=== PATIENT | male | born 1945 | race Caucasian/White ===

== ENCOUNTER 2017-05-09 19:18 | Inpatient (IN) | payer OTHER, MEDICARE ==
[~2017-05-09] VITALS: Ht 182.9 cm; Wt 52.6 kg
[2017-05-09 18:45] VITALS: BP 116/76; PULSE 67; RESP 18; TEMP 98.6; O2SAT 96
[2017-05-10 06:23] VITALS: BP 149/74; PULSE 81; RESP 18; TEMP 97.7; O2SAT 98
--- NOTE | 2017-05-10 10:06 | PD.PN.STU ---
Subjective Remarks Capacity: AO x4. Coherent but significant delusions Psych Chief Complaint: Delusion of "rotted teeth" causing severe self care deficit. HPI: Mr. Aburto is a 71yo male who was transferred here last night from [place] under Ren Act. History of depression, suicidal ideation, and cardiac disease. According to his he asked her to go buy a gun so he could kill himself, so she called the police. Patient states that after his rotator cuff surgery in 2016 he was "very stupid" and did not brush his teeth. After which he believes his teeth "rotted away from the inside out, and caused a hole in his face." He also believes that his "skin is full of blisters and blood is full of sludge," all of which is going to cause him to because he cannot eat , drink, or receive TPN. He states that he does not want to starve, but wishes his heart would stop so that he no longer has to suffer like this. Repeatedly states that he is "already so there is no use anyway." Denies depression. Denies auditory and visual hallucinations. Denies capacity to walk however says he was walking until 2 days ago. Patient refuses medication food/drink. Hx of BA placement 1 year ago to [facility] for MDD. Patient's is Tamim Aburto [phone]. PMH: HTN, Hypercholesteremia, MDD, opiate misuse, carpal tunnel, chronic shoulder pain, blood clot PSH: Rotator Cuff surgery in 2016 in [place]. Appendectomy unknown date SH: Denies alcohol, tobacco, illicit drug use FH: lives in [place], brother lives in [place], [place], sister . Family history of stroke, denies having relative with psychiatric hx Objective Vitals Vital Signs Date Time Temp Pulse Resp B/P (MAP) Pulse Ox O2 Delivery O2 Flow Rate FiO2 05/10/17 06:23 97.7 81 18 149/74 (99) 98 05/09/17 18:45 98.6 67 18 116/76 (89) 96 I/O 05/09/17 05/09/17 05/09/17 05/10/17 05/10/17 05/10/17 07:00 15:00 23:00 07:00 15:00 23:00 Intake Total 0 ml Balance 0 ml Intake Oral 0 ml # Voids 1 Objective Remarks Done in [place] ER on 05/09: Labs unremarkable. CT Head no acute changes EKG no significant changes A/P Assessment and Plan Patient BA by [place] ED on 05/09 for MDD with psychotic features and suicidal ideation. Pt refuses food, water, and medications due to delusions. Recommend antidepressive therapy and augmentation with antipsychotic Discharge Planning Discharge to [facility] for fluids, TPN and medical support. Samir Johnson M3 May 10, 2017 10:06
[2017-05-10] MEDS ORDERED: diphenhydrAMINE HCL 50 MG CAP PO PRN (11:45)
[2017-05-10] MEDS ORDERED: hydrOXYzine HCL 50 MG TAB PO PRN (11:45)
[2017-05-10] MEDS ORDERED: MAGNESIUM HYDROXIDE SUSP 30 ML CUP PO PRN (11:45)
[2017-05-10] MEDS ORDERED: ALUMINUM/MAGNESIUM/SIMETH 30 ML CUP PO PRN (11:45)
--- NOTE | 2017-05-10 12:13 | HHI.HP ---
Provisional Diagnosis Admission Date May 09, 2017 at 19:18 [place] I. 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 Express and informed consent means consent voluntarily given in writing, by a competent person, after sufficient explanation and disclosure of the subject matter involved to enable the person to make a knowing and willful decision without any element of force, fraud, deceit, duress, or other form of constraint or coercion. This person is 18 years of age or older, is not now known to be incompetent to consent to treatment with a guardian advocate, and does not have a health care surrogate or proxy currently making medical treatment decisions. I have found this person to be one of the following: [] Competent to provide express and informed consent, as defined above, for voluntary admission to this facility and is competent to provide express and informed consent for treatment. He/she has the consistent capacity to make well reasoned, willful, and knowing decisions concerning his or her medical or mental health treatment. The person fully and consistently understands the purpose of the admission for examination/placement and is fully capable of personally exercising all rights assured under [place]xxx] Incompetent to provide express and informed consent to voluntary admission , and this is incompetent to provide express and informed consent to treatment. The person must be transferred to involuntary status and a petition for a guardian advocate filed with the Circuit Court. [] Refusing to provide express and informed consent to voluntary admission but is competent to provide express and informed consent for treatment. The person must be discharged or transferred to involuntary status. Form shall be completed within 24 hours of a person's arrival at the receiving facility and filed in the clinical record of each person: 1. Admitted on a voluntary basis 2. Permitted to provide express and informed consent to his/her own treatment 3. Allowed to transfer from involuntary to voluntary status 4. Prior to permitting a person to consent to his or her own treatment after having been previously found incompetent to consent to treatment. History of Present Illness Capacity: Lacks Capacity Psych Chief Complaint: severe depression, severe weight loss, thinks he had HPI Patient is a 71-year-old white male comes here under a Ren act signed by Dr. Sacha Mtz dated 05/09/17 at 1205 that document reviewed stating depression suicidal ideations states patient asked her to buy a gun so he could shoot himself. Patient initially seen with the Ren act at [facility] once medically cleared transferred to this facility for further care and attention under the Ren act. Patient seen in his room on unit 2500 with nurse Cecilia and medical student Samir. Patient laying quietly in bed flat on his back very still with fair eye contact. His responses are slow brief and quiet there is delay in his responses. Patient is alert, he is oriented to place time and situation. He states that he thinks he is . That he has sludge in his veins. That his teeth are rotten. That he cannot swallow. That he has a whole in his cheek. He does state also that he had surgery on his right shoulder about 2-3 years ago with poor healing with the depression starting after that. He has had marked weight loss marked anhedonia and melancholy a. He acknowledges hospitalization 2 about a year ago reviewed and prescribed various medications none of which he appears to have been compliant with. He lives with his of 41 years. He states he would absolutely take the suicide pill if offered to him. Patient denies any prior psychiatric contact hospitalization his psychotropic medications. Denies any alcohol or drug use related to this. Denies any physical or sexual abuse. Though the may be some mental health history with the paternal side of his family. He states he has one adopted adult son and they have no contact with. I also talked to the patient's whose name is Tammi at [phone] who verifies the above statements. She also has added that after the shoulder surgery he had episodes with severe chronic pain have been on various opiates. Though he did not mention that to us at all. also states he had been tried on Wellbutrin, Remeron, Cymbalta, and Seroquel. He also been on lisinopril and hydrocodone with Tylenol. At this time patient does meet criteria for acute inpatient involuntary psychiatric hospitalization under the Ren act. I will do first opinion and request second opinion. I feel he does not have capacity thus I'll ask for healthcare surrogate and guardian advocate. I states she would be willing to be health care surrogate, she states that his prior 2 hospitalizations a year ago for Ren acts also. She also states that they do have advanced directives the house and wishes to be DO NOT RESUSCITATE. We'll have the hospitalist consult will us. We will have PT and OT consult will us. We will have a swallow study done. For now I will refrain from any psychotropics and 3 given some further information. On first assessment appears as patient might be a candidate for ECT will discuss that with his and the patient with her the next few days Review of Systems Constitutional: COMPLAINS OF: Weight loss, Change in appetite Endocrine: DENIES: Heat/cold intolerance, Polydipsia, Polyuria, Polyphagia Eyes: DENIES: Blurred vision, Diplopia, Eye inflammation, Eye pain, Vision loss , Photosensitivity, Double Vision Ears, nose, mouth, throat: COMPLAINS OF: Toothache, Odynophagia Respiratory: DENIES: Apneas, Cough, Snoring, Wheezing, Hemoptysis, Sputum production, Shortness of breath Cardiovascular: DENIES: Chest pain, Palpitations, Syncope, Dyspnea on Exertion , PND, Lower Extremity Edema, Orthopnea, Claudication Gastrointestinal: COMPLAINS OF: Difficulty Swallowing, DENIES: Abdominal pain, Black stools, Bloody stools, Constipation, Diarrhea, Nausea, Vomiting, Anorexia Genitourinary: DENIES: Sexual dysfunction, Urinary frequency, Urinary incontinence, Urgency, Hematuria, Dysuria, Nocturia, Penile Discharge, Testicular Pain, Testicular Swelling Musculoskeletal: COMPLAINS OF: Joint pain, DENIES: Muscle aches, Stiffness, Joint Swelling, Back pain, Neck pain Integumentary: DENIES: Abnormal pigmentation, Nail changes, Pruritus, Rash Hematologic/lymphatic: DENIES: Bruising, Lymphadenopathy Immunologic/allergic: DENIES: Eczema, Urticaria Neurologic: DENIES: Abnormal gait, Headache, Localized weakness, Paresthesias, Seizures, Speech Problems, Tremor, Poor Balance Psychiatric: COMPLAINS OF: Depression, Hallucinations, Suicidal Ideation Past Psych History Psychological trauma history Patient denies Violence risk - others (6 mos) Low Violence risk - self (6 mos) High Substance Abuse History Drugs/Alcohol past 12 months Denies Past Family Social History Coded Allergies: No Known Allergies (Unverified , 05/09/17) Current Medications Medications (Trade) Dose Ordered Sig/Bertin Route Start Time Stop Time Status Last Admin (Benadryl) 50 mg HS PRN PO 05/10/17 11:45 (Tylenol) 650 mg Q4H PRN PO 05/10/17 11:45 (Milk Of Magnesia Liq) 30 ml DAILY PRN PO 05/10/17 11:45 (Mag-Al Plus Susp Liq) 30 ml Q6H PRN PO 05/10/17 11:45 (Atarax) 50 mg Q6H PRN PO 05/10/17 11:45 Family Psych History Appears to be mental health issues and paternal family Social History Patient lives with his of 41 years Patient's Strengths (min. 2) Patient verbal able axis health care is supportive family Physical Exam Patient medically cleared [facility], if present time patient resting quietly in his bed on 2500 he is in no acute distress he is in no respiratory distress no complaints of abdominal pain patient slowly moving all 4 extremities well lying in bed Vital Signs Vital Signs Date Time Temp Pulse Resp B/P (MAP) Pulse Ox O2 Delivery O2 Flow Rate FiO2 05/10/17 06:23 97.7 81 18 149/74 (99) 98 I/O 05/10/17 05/10/17 05/10/17 07:59 15:59 23:59 Intake Total 240 ml Balance 240 ml Mental Status Examination Appearance: Disheveled Consciousness: Alert Orientation: Person, Place, Date/Time, Situation Motor Activity: Other (patient laying in bed unable to ascertain) Speech: Unremarkable Language: Adequate Fund of Knowledge: Adequate Attention and Concentration: Other (fair) Memory: Unremarkable Mood: Sad (depressed), Other (melancholic and anhedonic) Affect: Other (marked decreased range and intensity) Thought Process & Associations: Intact Thought Content: Bizarre thinking Hallucination Type: Olfactory, Tactile Delusion Type: Paranoid Suicidal Ideation: Yes (patient would take the suicide pill) Suicidal Plan: Yes (patient will take the suicide pill) Suicidal Intention: Yes (patient would take the suicide pill) Homicidal Ideation: No Homicidal Plan: No Homicidal Intention: No Insight: Poor Judgment: Poor Assessment & Plan Problem List: (1) Major depressive disorder, recurrent, severe with psychotic features ICD Codes: F33.3 - Major depressive disorder, recurrent, severe with psychotic symptoms Assessment & Plan Estimated LOS: 7 days at this time patient meets criteria for involuntary psychiatric hospitalization Ren act I'll do first opinion request second opinion. I feel doesn't have capacity all is for healthcare surrogate and guardian advocate. We will have hospitalist consult with us, order PT and OT consult, but his swallow study. Patient's states she would be health care surrogate Discharge Planning At this time is too soon to make assessment related to discharge planning Request HC Surrog/Guard Advoc?: Yes Casa Earl MD May 10, 2017 12:13
[2017-05-10] MEDS ORDERED: QUET150XR PO (12:54)
[2017-05-10] MEDS ORDERED: FENT12DI T-DERMAL (12:54)
[2017-05-10] MEDS ORDERED: BUPR150XL PO (12:54)
[2017-05-10] MEDS ORDERED: MELO15TA20 PO (12:54)
[2017-05-10] MEDS ORDERED: REME15TA PO (12:54)
[2017-05-10] MEDS ORDERED: CELE200C PO (12:54)
[2017-05-10] MEDS ORDERED: TRAZ100T10 PO (12:54)
[2017-05-10] MEDS ORDERED: AMLO5TAB2 PO (12:54)
--- NOTE | 2017-05-10 16:58 | PD.CONS ---
[facility] service Reason for Consult Assist with medical management Primary Care Physician Unknown Diagnoses: History of Present Illness Patient is a 71-year-old male who is admitted here at our psychiatry unit transferred from the [facility] for further psychiatric management. Patient is quiet and needs to be encouraged to answer. His affect is blunt but is pleasant. Patient apparently on report was having suicidal ideations and ask for a con's of liquid shoot himself. Patient was Ren acted. Patient denies any history of hypertension or any pain however on review of records from the [facility] was on amlodipine and some pain meds. Patient just states that "" I did want to eat because I'm not hungry". Patient admits that the patient this has been going on for months. Denies any tissue reactive urgency denies any cough denies any bowel movement changes occasional constipation but denies any melena or hematochezia. Admits to weight loss Patient at present denies any paranoid thoughts or suicidal ideations Review of labs from the [facility] UA was clear. WBC of 4.7 hemoglobin 13.5 hematocrit 37.8 platelet of 171. INR is 0 sodium 140 potassium 4.8 chloride 96 CO2 37 BUN 17 creatinine 0.8 blood sugars 98 AST is [address] of the brain shows no acute abnormality. 12-lead EKG sinus rhythm no acute ST-T wave changes Review of Systems ROS Limitations: Poor Historian Constitutional: DENIES: Diaphoretic episodes, Fatigue, Fever, Weight gain, Weight loss, Chills, Dizziness, Change in appetite, Night Sweats Endocrine: DENIES: Heat/cold intolerance, Polydipsia, Polyuria, Polyphagia Eyes: DENIES: Blurred vision, Diplopia, Eye inflammation, Eye pain, Vision loss , Photosensitivity, Double Vision Ears, nose, mouth, throat: DENIES: Tinnitus, Hearing loss, Vertigo, Nasal discharge, Oral lesions, Throat pain, Hoarseness, Ear Pain, Running Nose, Epistaxis, Sinus Pain, Toothache, Odynophagia Respiratory: DENIES: Apneas, Cough, Snoring, Wheezing, Hemoptysis, Sputum production, Shortness of breath Cardiovascular: DENIES: Chest pain, Palpitations, Syncope, Dyspnea on Exertion , PND, Lower Extremity Edema, Orthopnea, Claudication Gastrointestinal: COMPLAINS OF: Constipation Genitourinary: DENIES: Sexual dysfunction, Urinary frequency, Urinary incontinence, Urgency, Hematuria, Dysuria, Nocturia, Penile Discharge, Testicular Pain, Testicular Swelling Musculoskeletal: DENIES: Joint pain, Muscle aches, Stiffness, Joint Swelling, Back pain, Neck pain Integumentary: DENIES: Abnormal pigmentation, Nail changes, Pruritus, Rash Hematologic/lymphatic: DENIES: Bruising, Lymphadenopathy Immunologic/allergic: DENIES: Eczema, Urticaria Neurologic: DENIES: Abnormal gait, Headache, Localized weakness, Paresthesias, Seizures, Speech Problems, Tremor, Poor Balance Psychiatric: COMPLAINS OF: Depression Past Family Social History Allergies: Coded Allergies: No Known Allergies (Unverified , 05/09/17) Past Medical History History of depression Base on list of medications possible history of chronic pain Positive history of hypertension Past Surgical History Patient denies any previous orthopedic surgery. On review of records, listed appendectomy cataract surgery Reported Medications Amlodipine Celebrex Meloxicam Fentanyl patch Wellbutrin Remeron Trazodone Seroquel When went over all of his pain medications with patient patient states he does not take these medications Active Ordered Medications See EMR Family History Patient did not offer any information regarding family history Social History He denies smoking alcohol or substance abuse Physical Exam Vital Signs Vital Signs Date Time Temp Pulse Resp B/P (MAP) Pulse Ox O2 Delivery O2 Flow Rate FiO2 05/10/17 06:23 97.7 81 18 149/74 (99) 98 05/09/17 18:45 98.6 67 18 116/76 (89) 96 Physical Exam GENERAL: No acute distress blunt affect, emaciated SKIN: No rashes Cool and dry. HEAD: Atraumatic. No temporal or scalp tenderness. EYES: Pupils equal round and reactive. Extraocular motions intact. No scleral icterus. ENT: Nose without bleeding, Throat without erythema,, oral mucosa moist NECK: Trachea midline. No JVD or lymphadenopathy. Supple, nontender, no meningeal signs. CARDIOVASCULAR: Regular rate and rhythm without murmurs, gallops, or rubs. RESPIRATORY: Clear to auscultation. Breath sounds equal bilaterally. No wheezes , rales, or rhonchi. No axillary lymphadenopathy GASTROINTESTINAL: soft, non-tender, nondistended. Scaphoid abdomen MUSCULOSKELETAL: Extremities without clubbing, cyanosis, or edema. No joint tenderness, effusion, or edema noted. No calf tenderness. Negative Homans sign bilaterally. NEUROLOGICAL: Awake and alert. Cranial nerves II through XII intact. Motor and sensory grossly within normal limits. Five out of 5 muscle strength in all muscle groups. Normal speech. Assessment and Plan Assessment and Plan 71-year-old male admitted under psych services because of Major Depression. Management per psychiatry. CT report reviewed no acute intracranial process Cachexia. ? secondary to major depression Will get a prealbumin level in a.m. We'll get the dietitian for nutritional consult and recommendation Hopefully with management of depression . Appetite will improve Elevated transaminases from review of labs from [facility]- AST was 104 ALT 128. We'll repeat complete metabolic panel. The rest of his labs are essentially normal electrolytes BUN/creatinine blood sugar CBC INR UA were good. If persistently elevated consider getting imaging studies of the abdomen Hypertension. On review was on amlodipine 5 mg daily. 12-lead EKG is negative We'll get a chest x-ray PA and lateral view. ? History of chronic pain on review of metastases for on several NSAIDs and fentanyl. Patient at present denies any pain will monitor for now and hold off on this pain medications Encourage ambulation. Thank you for this consult we'll follow patient in-house with you Discussed Condition With Patient and staff nurse Edel Mendes MD May 10, 2017 16:58
[2017-05-10 17:40] VITALS: BP 128/72; PULSE 85; RESP 18; TEMP 98; O2SAT 98
[2017-05-11 05:52] VITALS: BP 142/74; PULSE 63; RESP 16; TEMP 97.5; O2SAT 100
--- NOTE | 2017-05-11 11:27 | PD.PSY.CON ---
Provisional Diagnosis Admission Date May 09, 2017 at 19:18 [place]. 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 Earl Reason for Consult second opinion Primary Care Physician Unknown HPI Patient is a 71-year-old white male comes here under a Ren act signed by Dr. Sacha Mtz dated 05/09/17 at 1205 that document reviewed stating depression suicidal ideations states patient asked her to buy a gun so he could shoot himself. Patient initially seen with the Ren act at [facility] once medically cleared transferred to this facility for further care and attention under the Ren act. Patient seen in his room on unit 2500 with nurse Cecilia and medical student Samir. Patient laying quietly in bed flat on his back very still with fair eye contact. His responses are slow brief and quiet there is delay in his responses. Patient is alert, he is oriented to place time and situation. He states that he thinks he is . That he has sludge in his veins. That his teeth are rotten. That he cannot swallow. That he has a whole in his cheek. He does state also that he had surgery on his right shoulder about 2-3 years ago with poor healing with the depression starting after that. He has had marked weight loss marked anhedonia and melancholy a. He acknowledges hospitalization 2 about a year ago reviewed and prescribed various medications none of which he appears to have been compliant with. He lives with his of 41 years. He states he would absolutely take the suicide pill if offered to him. Patient denies any prior psychiatric contact hospitalization his psychotropic medications. Denies any alcohol or drug use related to this. Denies any physical or sexual abuse. Though the may be some mental health history with the paternal side of his family. He states he has one adopted adult son and they have no contact with. I also talked to the patient's whose name is Tammi at [phone] who verifies the above statements. She also has added that after the shoulder surgery he had episodes with severe chronic pain have been on various opiates. Though he did not mention that to us at all. also states he had been tried on Wellbutrin, Remeron, Cymbalta, and Seroquel. He also been on lisinopril and hydrocodone with Tylenol. At this time patient does meet criteria for acute inpatient involuntary psychiatric hospitalization under the Ren act. I will do first opinion and request second opinion. I feel he does not have capacity thus I'll ask for healthcare surrogate and guardian advocate. I states she would be willing to be health care surrogate, she states that his prior 2 hospitalizations a year ago for Ren acts also. She also states that they do have advanced directives the house and wishes to be DO NOT RESUSCITATE. We'll have the hospitalist consult will us. We will have PT and OT consult will us. We will have a swallow study done. For now I will refrain from any psychotropics and 3 given some further information. On first assessment appears as patient might be a candidate for ECT will discuss that with his and the patient with her the next few days The patient is a 71 years old man, brought to the hospital under Ren act due to symptoms of depression and suicidal ideation. Patient was consulted to me for second opinion. On psychiatric evaluation today patient is non-cooperative, very oppositional and selectively mute. In spite of persistent redirection, the patient remains silent and don't answer any of my questions. Review of Systems Except as stated in HPI: all other systems reviewed are Neg Past Family Social History Coded Allergies: No Known Allergies (Unverified , 05/09/17) Reported Medications Trazodone (Trazodone) 100 Mg Tablet, 100 MG PO HS for Control Depression, #30 TAB 0 Refills 05/10/17 Quetiapine XR (Seroquel XR) 150 Mg Tab, 150 MG PO HS, #30 TAB 0 Refills 05/10/17 Mirtazapine (Remeron) 15 Mg Tab, 15 MG PO HS for Depression Control, #30 TAB 0 Refills 05/10/17 Meloxicam (Meloxicam) 15 Mg Tab, 15 MG PO DAILY for Arthritis Pain, #30 TAB 0 Refills 05/10/17 Fentanyl Patch 72 HR (Fentanyl Patch 72 HR) 12 Mcg/Hr Patch, 1 PATCH T-DERMAL Q72H for Pain Management, #10 PATCH 0 Refills Remove old patch when new one placed. 05/10/17 Celecoxib (Celebrex) 200 Mg Cap, 200 MG PO BID for Pain Management, CAP 0 Refills 05/10/17 Bupropion HCl ER 24 HR (Wellbutrin Xl 24 HR) 150 Mg Tab, 150 MG PO DAILY for Control Depression, TAB 0 Refills 05/10/17 Amlodipine (Amlodipine) 5 Mg Tab, 5 MG PO DAILY for Blood Pressure Management, # 30 TAB 0 Refills 05/10/17 Current Medications Medications (Trade) Dose Ordered Sig/Bertin Route Start Time Stop Time Status Last Admin (Benadryl) 50 mg HS PRN PO 05/10/17 11:45 (Tylenol) 650 mg Q4H PRN PO 05/10/17 11:45 (Milk Of Magnesia Liq) 30 ml DAILY PRN PO 05/10/17 11:45 (Mag-Al Plus Susp Liq) 30 ml Q6H PRN PO 05/10/17 11:45 (Atarax) 50 mg Q6H PRN PO 05/10/17 11:45 Patient's Strengths (min. 2) Patient verbal able axis health care is supportive family Physical Exam Vital Signs Vital Signs Date Time Temp Pulse Resp B/P (MAP) Pulse Ox O2 Delivery O2 Flow Rate FiO2 05/11/17 05:52 97.5 63 16 142/74 (96) 100 I/O 05/11/17 05/11/17 05/12/17 08:00 16:00 00:00 Intake Total 0 ml 0 ml Balance 0 ml 0 ml Mental Status Examination Appearance: Disheveled Consciousness: Alert Orientation: Person, Place, Date/Time, Situation Motor Activity: Other (patient laying in bed unable to ascertain) Speech: Unremarkable Language: Adequate Fund of Knowledge: Adequate Attention and Concentration: Other (fair) Memory: Unremarkable Mood: Sad (depressed), Other (melancholic and anhedonic) Affect: Other (marked decreased range and intensity) Thought Process & Associations: Intact Thought Content: Bizarre thinking Hallucination Type: Olfactory, Tactile Delusion Type: Paranoid Suicidal Ideation: Yes (patient would take the suicide pill) Suicidal Plan: Yes (patient will take the suicide pill) Suicidal Intention: Yes (patient would take the suicide pill) Homicidal Ideation: No Homicidal Plan: No Homicidal Intention: No Insight: Poor Judgment: Poor Assessment & Plan Problem List: (1) Major depressive disorder, recurrent, severe with psychotic features ICD Codes: F33.3 - Major depressive disorder, recurrent, severe with psychotic symptoms Assessment & Plan: I have seen and examined this patient, review documentation. I agree and concur with Dr. Earl's assessment and plan. Consul appreciated. Assessment & Plan Estimated LOS: days Request HC Surrog/Guard Advoc?: Yes Eduardo Dos Santos MD May 11, 2017 11:27
--- NOTE | 2017-05-11 11:47 | HHI.PYPN ---
Subjective Chief Complaint: severe depression, severe weight loss, thinks he had Remarks Patient seen in the day room with nurse Nneka, chart review, patient sitting in Alie chair slowly eating his lunch. Is also drinking fluids. Albeit somewhat reluctantly. Patient continues to feel that he is continues to state that there is a hole in his left cheek. That his blood has sludge. The depression continues quite evident with marked psychomotor retardation. However it does appear that he is willing to take medication. We will offer him Remeron 15 mg at at bedtime and Abilify 5 mg in the morning. Hospitalists assessment noted reviewed appreciated and agreed with Review of Systems Except as stated in HPI: all other systems reviewed are Neg Mental Status Examination Appearance: Disheveled Consciousness: Alert Orientation: Person, Place, Date/Time, Situation Motor Activity: Other (patient laying in bed unable to ascertain) Speech: Unremarkable Language: Adequate Fund of Knowledge: Adequate Attention and Concentration: Other (fair) Memory: Unremarkable Mood: Sad (depressed), Other (melancholic and anhedonic) Affect: Other (marked decreased range and intensity) Thought Process & Associations: Intact Thought Content: Bizarre thinking Hallucination Type: Olfactory, Tactile Delusion Type: Paranoid Suicidal Ideation: Yes (patient would take the suicide pill) Suicidal Plan: Yes (patient will take the suicide pill) Suicidal Intention: Yes (patient would take the suicide pill) Homicidal Ideation: No Homicidal Plan: No Homicidal Intention: No Insight: Poor Judgment: Poor Results Vitals/IOs Vital Signs Date Time Temp Pulse Resp B/P (MAP) Pulse Ox O2 Delivery O2 Flow Rate FiO2 05/11/17 05:52 97.5 63 16 142/74 (96) 100 Intake and Output 05/11/17 05/11/17 05/12/17 08:00 16:00 00:00 Intake Total 0 ml 0 ml Balance 0 ml 0 ml Assessment & Plan Problem List: (1) Major depressive disorder, recurrent, severe with psychotic features ICD Codes: F33.3 - Major depressive disorder, recurrent, severe with psychotic symptoms Assessment & Plan Estimated LOS: days patient continues to really depressed, colic, with delusions. Though that this time he is having some oral intake both soft solid and liquid She medication adjustment above Justification for Cont. Inpt. With this time patient will decompensated placed in a lower level of care Discharge Planning This continues to need to be determined Request HC Surrog/Guard Advoc?: Yes Casa Earl MD May 11, 2017 11:47
--- NOTE | 2017-05-11 13:14 | RADRPT ---
EXAM DATE/TIME: 05/11/2017 12:51 [place] COMPARISON: No previous studies available for comparison. INDICATIONS : Hypertension. MEDICAL HISTORY : None. SURGICAL HISTORY : None. ENCOUNTER: Subsequent ACUITY: 1 day PAIN SCORE: 0/10 LOCATION: Bilateral chest FINDINGS: PA and lateral views of the chest demonstrate the lungs to be symmetrically aerated without evidence of mass, infiltrate or effusion. The cardiomediastinal contours are unremarkable. Degenerative nayak ges thoracic spine. CONCLUSION: No acute disease. Vishal Cook MD FACR on May 11, 2017 at 13:11 Board Certified Radiologist. This report was verified electronically.
--- NOTE | 2017-05-11 14:57 | HHI.PR ---
Subjective Remarks Follow-up visit for correction, depression, elevated LFTs, HTN. Patient seen and examined today lying in bed. Nonverbal. Follows commands but does not respond to any questions. As per nursing no acute issues overnight. Objective Vitals Vital Signs Date Time Temp Pulse Resp B/P (MAP) Pulse Ox O2 Delivery O2 Flow Rate FiO2 05/11/17 05:52 97.5 63 16 142/74 (96) 100 05/10/17 17:40 98.0 85 18 128/72 (90) 98 I/O 05/10/17 05/10/17 05/10/17 05/11/17 05/11/17 05/11/17 07:00 15:00 23:00 07:00 15:00 23:00 Intake Total 0 ml 100 ml 480 ml 0 ml 480 ml Balance 0 ml 100 ml 480 ml 0 ml 480 ml Intake Oral 0 ml 100 ml 480 ml 0 ml 480 ml # Voids 1 2 0 1 # Bowel Movements 0 Imaging Last Impressions Chest X-Ray 05/11/17 0600 Signed Impressions: Service Date/Time: Thursday, May 11, 2017 12:51 - CONCLUSION: No acute disease. Vishal Cook MD FACR Objective Remarks GENERAL: This is a thin-appearing, well-developed patient, in no apparent distress. SKIN: Warm and dry. HEENT: Normocephalic. Pupils equal round and reactive. Nose without bleeding. Airway patent. NECK: Trachea midline. No JVD. Supple. CARDIOVASCULAR: Regular rate and rhythm without murmurs, gallops, or rubs. RESPIRATORY: Clear to auscultation. Breath sounds equal bilaterally. No wheezes , rales, or rhonchi. GASTROINTESTINAL: Abdomen soft, non-tender, nondistended. Bowel Sounds normoactive x4. MUSCULOSKELETAL: Extremities without clubbing, cyanosis, or edema. NEUROLOGICAL: Awake and alert. Moves all extremities. Nonverbal A/P Problem List: (1) Major depressive disorder, recurrent, severe with psychotic features ICD Code: F33.3 - Major depressive disorder, recurrent, severe with psychotic symptoms Assessment and Plan Patient is a 71-year-old male who came into the hospital transferred from [facility] for psychiatric management. Major Depression - Management per psychiatry. - CT report reviewed no acute intracranial process Cachexia. ? secondary to major depression - Pending prealbumin level in a.m. - Dietitian for nutritional consult and recommendation - Hopefully with management of depression . Appetite will improve - Add ensure with meals Elevated transaminases from review of labs from [place] - AST 104 ALT 128. - Repeat complete metabolic panel. Pending. - If persistently elevated consider getting imaging studies of the abdomen/ liver, hepatitis panel. Hypertension. - Previously On amlodipine 5 mg daily. Will trend BP for now and hold of restarting meds pending labs - 12-lead EKG is negative - CXR PA/LAT no acute disease ? History of chronic pain on review of metastases for on several NSAIDs and fentanyl. - No complaints of pain. Appears comfortable on exam Encourage ambulation. Kyler Trujillo May 11, 2017 14:57
[2017-05-11 18:27] VITALS: BP 122/68; PULSE 77; RESP 18; TEMP 98.4; O2SAT 99
[2017-05-11] MEDS: MIRTAZAPINE 15 MG TAB PO SCH (20:38)
[2017-05-12 05:38] VITALS: BP 112/62; PULSE 55; RESP 18; TEMP 97.6; O2SAT 100
[2017-05-12] MEDS: ARIPiprazole 5 MG TAB PO SCH (08:32)
--- NOTE | 2017-05-12 14:47 | HHI.PYPN ---
Subjective Chief Complaint: severe depression, severe weight loss, thinks he had Remarks Patient seen in his room with medical student Samir, chart review, patient discussed with nurse. Patient showing some increased oral intake both solids and liquids he states it is not helping him that the food somehow is going into his arms. . Still feels his teeth are not his and soft, he still feels that the whole is developing in his cheek. Is somewhat more irritable today and anxious related to this. Though we did encourage him to continue cooperation with is eating. He has been compliant with his medications for now will continue medication no change since he said only had one dose of each med Review of Systems Except as stated in HPI: all other systems reviewed are Neg Mental Status Examination Appearance: Disheveled Consciousness: Alert Orientation: Person, Place, Date/Time, Situation Motor Activity: Other (patient laying in bed unable to ascertain) Speech: Unremarkable Language: Adequate Fund of Knowledge: Adequate Attention and Concentration: Other (fair) Memory: Unremarkable Mood: Sad (depressed), Other (melancholic and anhedonic) Affect: Other (marked decreased range and intensity) Thought Process & Associations: Intact Thought Content: Bizarre thinking Hallucination Type: Olfactory, Tactile Delusion Type: Paranoid Suicidal Ideation: Yes (patient would take the suicide pill) Suicidal Plan: Yes (patient will take the suicide pill) Suicidal Intention: Yes (patient would take the suicide pill) Homicidal Ideation: No Homicidal Plan: No Homicidal Intention: No Insight: Poor Judgment: Poor Results Vitals/IOs Vital Signs Date Time Temp Pulse Resp B/P (MAP) Pulse Ox O2 Delivery O2 Flow Rate FiO2 05/12/17 05:38 97.6 55 18 112/62 (79) 100 Assessment & Plan Problem List: (1) Major depressive disorder, recurrent, severe with psychotic features ICD Codes: F33.3 - Major depressive disorder, recurrent, severe with psychotic symptoms Assessment & Plan Estimated LOS: days patient continues depressed markedly delusional. For now continue treatment. Encourage oral intake Justification for Cont. Inpt. At this time patient will decompensate of placed in the lower level of care Discharge Planning At this time placement is undeterminable Request HC Surrog/Guard Advoc?: Yes Casa Earl MD May 12, 2017 14:47
[2017-05-12 17:47] VITALS: BP 107/60; PULSE 83; RESP 18; TEMP 98.1; O2SAT 100
[2017-05-12] MEDS: MIRTAZAPINE 15 MG TAB PO SCH (21:04)
[2017-05-13 06:18] VITALS: BP 120/70; PULSE 60; RESP 17; TEMP 97.6; O2SAT 96
[2017-05-13] MEDS: ARIPiprazole 5 MG TAB PO SCH (08:28)
[2017-05-13 09:07] LABS: BILIRUBIN, URINE NEG (NEG); BLOOD, URINE NEG (NEG); GLUCOSE,URINE NEG (NEG); KETONE, URINE NEG (NEG); NITRITE,URINE NEG (NEG); URINE COLOR YELLOW (YELLW/STRAW); URINE LEUKOCYTE ESTERASE NEG (NEG)
[2017-05-13 10:03] LABS: AUTOMATED NEUTROPHIL # 3.6 TH/MM3 (1.8-7.7); BASOPHIL % 0.4 % (0.0-2.0); EOSINOPHIL # 0.1 TH/MM3 (0-0.4); EOSINOPHIL % 1.8 % (0.0-4.0); HEMATOCRIT 37.1 % (39.0-51.0); HEMOGLOBIN 13.1 GM/DL (13.0-17.0); LYMPH % 32.6 % (9.0-44.0); MEAN CELL VOLUME 96.6 FL (80.0-100.0); MEAN CORPUSCULAR HEMOGLOBIN 34.2 PG (27.0-34.0); MEAN CORPUSCULAR HGB CONC 35.4 % (32.0-36.0); MEAN PLATELET VOLUME 8.6 FL (7.0-11.0); MONO % 6.6 % (0.0-8.0); MONOCYTE # 0.4 TH/MM3 (0-0.9); NEUT % 58.6 % (16.0-70.0); PLATELET COUNT 174 TH/MM3 (150-450); RED BLOOD COUNT 3.84 MIL/MM3 (4.50-5.90); RED CELL DISTRIBUTION WIDTH 12.8 % (11.6-17.2); WHITE BLOOD COUNT 6.2 TH/MM3 (4.0-11.0)
[2017-05-13 10:47] LABS: ALBUMIN 3.9 GM/DL (3.4-5.0); AST (GOT) 51 U/L (15-37); BICARBONATE 33.2 MEQ/L (21.0-32.0); BLOOD UREA NITROGEN 30 MG/DL (7-18); CALCIUM 9.2 MG/DL (8.5-10.1); CHLORIDE 103 MEQ/L (98-107); CREATININE 0.92 MG/DL (0.60-1.30); GLOMERULAR FILTRATION RATE 81 ML/MIN (>89); GLUCOSE,RANDOM 87 MG/DL (74-106); SODIUM (NA) 142 MEQ/L (136-145)
[2017-05-13 10:48] LABS: CHOLESTEROL 161 MG/DL (120-200)
[2017-05-13 10:57] LABS: ALKALINE PHOSPHATASE 79 U/L (45-117); ALT (GPT) 86 U/L (12-78); CHOLESTEROL/ HDL RATIO 2.72 RATIO; FREE T4 0.87 NG/DL (0.76-1.46); HDL CHOLESTEROL 59.1 MG/DL (40.0-60.0); LDL CHOLESTEROL 75 MG/DL (0-99); TOTAL BILIRUBIN ADULT 0.3 MG/DL (0.2-1.0); TOTAL PROTEIN 7.1 GM/DL (6.4-8.2); TRIGLYCERIDES 134 MG/DL (42-150)
--- NOTE | 2017-05-13 15:34 | HHI.PYPN ---
Subjective Chief Complaint: severe depression, severe weight loss, thinks he had Remarks Patient seen in his room with nurse Atiya, chart review, patient discussed with nurse. Patient continues to lay in bed with significant psychomotor retardation. There is somewhat more verbal today he continues to verifies delusions about this condition of his mouth teeth and cheeks and his circulation. He also acknowledges his depression. Of interest patient stated his father had a history of depression and did undergo ECT treatment. I did mention ECT to this patient's we need to consider this if there is no response to oral medication. Will increase his a.m. Abilify to 10 mg Review of Systems Except as stated in HPI: all other systems reviewed are Neg Mental Status Examination Appearance: Disheveled Consciousness: Alert Orientation: Person, Place, Date/Time, Situation Motor Activity: Other (patient laying in bed unable to ascertain) Speech: Unremarkable Language: Adequate Fund of Knowledge: Adequate Attention and Concentration: Other (fair) Memory: Unremarkable Mood: Sad (depressed), Other (melancholic and anhedonic) Affect: Other (marked decreased range and intensity) Thought Process & Associations: Intact Thought Content: Bizarre thinking Hallucination Type: Olfactory, Tactile Delusion Type: Paranoid Suicidal Ideation: Yes (patient would take the suicide pill) Suicidal Plan: Yes (patient will take the suicide pill) Suicidal Intention: Yes (patient would take the suicide pill) Homicidal Ideation: No Homicidal Plan: No Homicidal Intention: No Insight: Poor Judgment: Poor Results Labs Test 05/13/17 08:30 05/13/17 09:32 Urine Color YELLOW Urine Turbidity CLEAR Urine pH 7.0 Urine Specific [place] 1.018 Urine Protein NEG mg/dL Urine Glucose (UA) NEG mg/dL Urine Ketones NEG mg/dL Urine Occult Blood NEG Urine Nitrite NEG Urine Bilirubin NEG Urine Urobilinogen LESS THAN 2.0 MG/DL Urine Leukocyte Esterase NEG Urine RBC 4 /hpf Urine WBC 3 /hpf Microscopic Urinalysis Comment CULT NOT INDICATED White Blood Count 6.2 TH/MM3 Red Blood Count 3.84 MIL/MM3 Hemoglobin 13.1 GM/DL Hematocrit 37.1 % Mean Corpuscular Volume 96.6 FL Mean Corpuscular Hemoglobin 34.2 PG Mean Corpuscular Hemoglobin Concent 35.4 % Red Cell Distribution Width 12.8 % Platelet Count 174 TH/MM3 Mean Platelet Volume 8.6 FL Neutrophils (%) (Auto) 58.6 % Lymphocytes (%) (Auto) 32.6 % Monocytes (%) (Auto) 6.6 % Eosinophils (%) (Auto) 1.8 % Basophils (%) (Auto) 0.4 % Neutrophils # (Auto) 3.6 TH/MM3 Lymphocytes # (Auto) 2.0 TH/MM3 Monocytes # (Auto) 0.4 TH/MM3 Eosinophils # (Auto) 0.1 TH/MM3 Basophils # (Auto) 0.0 TH/MM3 CBC Comment DIFF FINAL Differential Comment Blood Urea Nitrogen 30 MG/DL Creatinine 0.92 MG/DL Random Glucose 87 MG/DL Total Protein 7.1 GM/DL Albumin 3.9 GM/DL Calcium Level 9.2 MG/DL Alkaline Phosphatase 79 U/L Aspartate Amino Transf (AST/SGOT) 51 U/L Alanine Aminotransferase (ALT/SGPT) 86 U/L Total Bilirubin 0.3 MG/DL Sodium Level 142 MEQ/L Potassium Level 4.4 MEQ/L Chloride Level 103 MEQ/L Carbon Dioxide Level 33.2 MEQ/L Anion Gap 6 MEQ/L Estimat Glomerular Filtration Rate 81 ML/MIN Prealbumin 22 MG/DL Triglycerides Level 134 MG/DL Cholesterol Level 161 MG/DL LDL Cholesterol 75 MG/DL HDL Cholesterol 59.1 MG/DL Cholesterol/HDL Ratio 2.72 RATIO Free Thyroxine 0.87 NG/DL Thyroid Stimulating Hormone 3rd Gen 2.150 uIU/ML Vitals/IOs Vital Signs Date Time Temp Pulse Resp B/P (MAP) Pulse Ox O2 Delivery O2 Flow Rate FiO2 05/13/17 06:18 97.6 60 17 120/70 (87) 96 Intake and Output 05/13/17 05/13/17 05/14/17 08:00 16:00 00:00 Intake Total 0 ml Balance 0 ml Assessment & Plan Problem List: (1) Major depressive disorder, recurrent, severe with psychotic features ICD Codes: F33.3 - Major depressive disorder, recurrent, severe with psychotic symptoms Assessment & Plan Estimated LOS: days patient continues depressed and psychotic with multiple delusions. She medication adjustment above Justification for Cont. Inpt. At this time patient will decompensate a placed a lower level of care Discharge Planning Place is still remains to be determined Request HC Surrog/Guard Advoc?: Yes Casa Earl MD May 13, 2017 15:34
[2017-05-13 16:23] VITALS: BP 152/84; PULSE 90; RESP 18; TEMP 97.2; O2SAT 98
[2017-05-13 16:51] LABS: HEMOGLOBIN A1C 4.8 % (4.3-6.0)
[2017-05-13] MEDS: MIRTAZAPINE 15 MG TAB PO SCH (21:26)
[2017-05-14 06:00] VITALS: BP 129/59; PULSE 58; RESP 16; TEMP 98.2; O2SAT 98
--- NOTE | 2017-05-14 09:17 | HHI.PR ---
Subjective Remarks Follow-up for blood pressure No overnight events, no complaints other than his usual complaints that he is dying with patient appears calm. No chest pain. Complains he is short of breath but appears very calm, saturation is 99% on room air Objective Vitals Vital Signs Date Time Temp Pulse Resp B/P (MAP) Pulse Ox O2 Delivery O2 Flow Rate FiO2 05/14/17 06:00 98.2 58 16 129/59 (82) 98 05/13/17 16:23 97.2 90 18 152/84 (106) 98 I/O 05/13/17 05/13/17 05/13/17 05/14/17 05/14/17 05/14/17 07:00 15:00 23:00 07:00 15:00 23:00 Intake Total 480 ml 720 ml 480 ml Balance 480 ml 720 ml 480 ml Intake Oral 480 ml 720 ml 480 ml # Voids 3 1 Result Diagram: 05/13/17 0932 05/13/17 0932 Objective Remarks GENERAL: This is a thin-appearing, not in distress, calm. HEENT: Normocephalic. Pupils equal round and reactive. Nose without bleeding. Airway patent. NECK: Trachea midline. No JVD. Supple. CARDIOVASCULAR: Regular rate and rhythm without murmurs, gallops, or rubs. RESPIRATORY: Clear to auscultation. Breath sounds equal bilaterally. No wheezes , rales, or rhonchi. GASTROINTESTINAL: Abdomen soft, non-tender, nondistended. Bowel Sounds normoactive x4. MUSCULOSKELETAL: Extremities without clubbing, cyanosis, or edema. NEUROLOGICAL: Awake and alert. Moves all extremities. Answers questions, follows some commands. Flat affect. A/P Problem List: (1) Major depressive disorder, recurrent, severe with psychotic features ICD Code: F33.3 - Major depressive disorder, recurrent, severe with psychotic symptoms Assessment and Plan Patient is a 71-year-old male who came into the hospital transferred from [facility] for psychiatric management. Major Depression - Management per psychiatry. - CT report reviewed no acute intracranial process Cachexia. ? secondary to major depression - Pending prealbumin 22. - Dietitian for nutritional consult and recommendation - Hopefully with management of depression . Appetite improving per RN. Continue Ensure. Patient refusal to eat likely secondary to psychiatric issues. Elevated transaminases from review of labs from [place] - AST 104 ALT 128, now trending down, no need to follow closely, recheck in a month. No further workup needed. Hypertension. - Previously On amlodipine 5 mg daily. This is on hold, presently normotensive. - 12-lead EKG is negative - CXR PA/LAT no acute disease ? History of chronic pain on review of metastases for on several NSAIDs and fentanyl. - No complaints of pain. Appears comfortable on exam Encourage ambulation. We will sign off, please call with questions. Caden Rojas MD May 14, 2017 09:17
[2017-05-14] MEDS: ARIPiprazole 5 MG TAB PO SCH (09:24)
--- NOTE | 2017-05-14 16:22 | HHI.PYPN ---
Subjective Chief Complaint: severe depression, severe weight loss, thinks he had Remarks Patient was seen and case discussed with nursing. Patient patient has had a small improvement today. He ate lunch and during our interview requested ensure. He does remain depressed and flat and hopeless. He expresses suicidal ideation dishevelment which shoot him with a gun. He denies any plan or intent of hurting himself in the unit. "I cannot think of using anything here to hurt myself, I would not do it." Remains compliant with his medications and is tolerating it well. Mental Status Examination Appearance: Disheveled Consciousness: Alert Orientation: Person, Place, Date/Time, Situation Motor Activity: Other (patient laying in bed unable to ascertain) Speech: Unremarkable Language: Adequate Fund of Knowledge: Adequate Attention and Concentration: Other (fair) Memory: Unremarkable Mood: Sad (depressed), Other (melancholic and anhedonic) Affect: Other (marked decreased range and intensity) Thought Process & Associations: Intact Thought Content: Bizarre thinking Hallucination Type: Olfactory, Tactile Delusion Type: Paranoid Suicidal Ideation: Yes (patient would take the suicide pill) Suicidal Plan: No Suicidal Intention: Yes (patient would take the suicide pill outside the hospital) Homicidal Ideation: No Homicidal Plan: No Homicidal Intention: No Insight: Poor Judgment: Poor Results Vitals/IOs Vital Signs Date Time Temp Pulse Resp B/P (MAP) Pulse Ox O2 Delivery O2 Flow Rate FiO2 05/14/17 06:00 98.2 58 16 129/59 (82) 98 Intake and Output 05/14/17 05/14/17 05/15/17 08:00 16:00 00:00 Intake Total 480 ml Balance 480 ml Assessment & Plan Problem List: (1) Major depressive disorder, recurrent, severe with psychotic features ICD Codes: F33.3 - Major depressive disorder, recurrent, severe with psychotic symptoms Assessment & Plan Consider adding Paxil to regimen next week Justification for Cont. Inpt. Patient will decompensate in a less restrictive setting Request HC Surrog/Guard Advoc?: Yes Gume Sagastume DO May 14, 2017 16:22
[2017-05-14 17:52] VITALS: BP 122/62; PULSE 62; RESP 18; TEMP 97.8; O2SAT 99
[2017-05-14] MEDS: MIRTAZAPINE 15 MG TAB PO SCH (21:00)
[2017-05-15] MEDS: ACETAMINOPHEN 325 MG TAB PO PRN (02:11)
[2017-05-15] MEDS: ARIPiprazole 5 MG TAB PO SCH (08:52)
--- NOTE | 2017-05-15 10:48 | HHI.PYPN ---
Subjective Chief Complaint: severe depression, severe weight loss, thinks he had Remarks Patient was seen and case discussed with nursing. Patient remains flat, hypoverbal, with psychomotor retardation. He spends his time in bed. He remains depressed with suicidal ideation telling me hoping that he will be shot in the head. He denies any plan or intent here in the unit. He says he cannot think of away to hurt himself here. He does he would let someone know. Refuse Remeron last night. Mental Status Examination Appearance: Disheveled Consciousness: Alert Orientation: Person, Place, Date/Time, Situation Motor Activity: Other (patient laying in bed unable to ascertain) Speech: Unremarkable Language: Adequate Fund of Knowledge: Adequate Attention and Concentration: Other (fair) Memory: Unremarkable Mood: Sad (depressed), Other (melancholic and anhedonic) Affect: Flat Thought Process & Associations: Intact Thought Content: Bizarre thinking Hallucination Type: Olfactory, Tactile Delusion Type: Paranoid Suicidal Ideation: Yes (to be shot with a gun) Suicidal Plan: No Suicidal Intention: No Homicidal Ideation: No Homicidal Plan: No Homicidal Intention: No Insight: Poor Judgment: Poor Results Vitals/IOs Vital Signs Date Time Temp Pulse Resp B/P (MAP) Pulse Ox O2 Delivery O2 Flow Rate FiO2 05/15/17 03:19 20 05/14/17 17:52 97.8 62 122/62 (82) 99 Intake and Output 05/15/17 05/15/17 05/16/17 08:00 16:00 00:00 Intake Total 240 ml 360 ml Balance 240 ml 360 ml Assessment & Plan Problem List: (1) Major depressive disorder, recurrent, severe with psychotic features ICD Codes: F33.3 - Major depressive disorder, recurrent, severe with psychotic symptoms Assessment & Plan Continue current treatment plan Justification for Cont. Inpt. Patient will decompensate in a less restrictive setting Request HC Surrog/Guard Advoc?: Yes Gume Sagastume DO May 15, 2017 10:48
[2017-05-15 11:39] LABS: ALBUMIN 3.4 GM/DL (3.4-5.0); DIRECT BILIRUBIN ADULT 0.1 MG/DL (0.0-0.2); INDIRECT BILIRUBIN 0.2 MG/DL (0.0-0.8); TOTAL BILIRUBIN ADULT 0.3 MG/DL (0.2-1.0); TOTAL PROTEIN 6.8 GM/DL (6.4-8.2)
[2017-05-15 18:00] VITALS: BP 107/65; PULSE 69; RESP 16; TEMP 97.8; O2SAT 98
[2017-05-15] MEDS: MIRTAZAPINE 15 MG TAB PO SCH (20:38)
[2017-05-16 06:51] VITALS: BP 99/55; PULSE 60; RESP 14; TEMP 97.4; O2SAT 100
[2017-05-16] MEDS: ARIPiprazole 5 MG TAB PO SCH (09:11)
--- NOTE | 2017-05-16 10:36 | HHI.PR ---
Subjective Remarks Follow-up visit for correction, depression, elevated LFTs, HTN. Patient seen and examined today lying in bed. Reports he is doing well. Denies any abdominal pain, nausea, vomiting, diarrhea. Denies any history of hepatitis but states that his mother has hepatitis and he was tested before and was negative. States his mother is already . No other issues or complaints. Objective Vitals Vital Signs Date Time Temp Pulse Resp B/P (MAP) Pulse Ox O2 Delivery O2 Flow Rate FiO2 05/16/17 06:51 97.4 60 14 99/55 (70) 100 05/15/17 18:00 97.8 69 16 107/65 (79) 98 I/O 05/15/17 05/15/17 05/15/17 05/16/17 05/16/17 05/16/17 07:00 15:00 23:00 07:00 15:00 23:00 Intake Total 240 ml 600 ml 240 ml 360 ml Balance 240 ml 600 ml 240 ml 360 ml Intake Oral 240 ml 600 ml 240 ml 360 ml # Voids 2 3 0 Result Diagram: 05/13/17 0932 05/13/17 0932 Imaging Last Impressions Chest X-Ray 05/11/17 0600 Signed Impressions: Service Date/Time: Thursday, May 11, 2017 12:51 - CONCLUSION: No acute disease. Vishal Coko MD FACR Objective Remarks GENERAL: This is a thin-appearing, well-developed patient, in no apparent distress. SKIN: Warm and dry. HEENT: Normocephalic. Pupils equal round and reactive. Nose without bleeding. Airway patent. NECK: Trachea midline. No JVD. Supple. CARDIOVASCULAR: Regular rate and rhythm without murmurs, gallops, or rubs. RESPIRATORY: Clear to auscultation. Breath sounds equal bilaterally. No wheezes , rales, or rhonchi. GASTROINTESTINAL: Abdomen soft, non-tender, nondistended. Bowel Sounds normoactive x4. MUSCULOSKELETAL: Extremities without clubbing, cyanosis, or edema. NEUROLOGICAL: Awake and alert. Moves all extremities. Nonverbal A/P Problem List: (1) Major depressive disorder, recurrent, severe with psychotic features ICD Code: F33.3 - Major depressive disorder, recurrent, severe with psychotic symptoms Status: Chronic Assessment and Plan Patient is a 71-year-old male who came into the hospital transferred from [facility] for psychiatric management. Major Depression - Management per psychiatry. - CT report reviewed no acute intracranial process Cachexia. ? secondary to major depression - Pending prealbumin level in a.m. - Dietitian for nutritional consult and recommendation - Hopefully with management of depression . Appetite will improve - Add ensure with meals Elevated transaminases from review of labs from [place] - AST 104 ALT 128. - Repeat labs with continued elevated LFTs. - US abdomen and liver ordered. - Check hepatitis panel. Hypertension. - Previously On amlodipine 5 mg daily. Will trend BP for now and hold of restarting meds pending labs - 12-lead EKG is negative - CXR PA/LAT no acute disease ? History of chronic pain on review of metastases for on several NSAIDs and fentanyl. - No complaints of pain. Appears comfortable on exam DVT prop Encourage ambulation. Kyler Trujillo May 16, 2017 10:36
[2017-05-16 12:39] LABS: ALBUMIN 3.6 GM/DL (3.4-5.0); DIRECT BILIRUBIN ADULT 0.1 MG/DL (0.0-0.2); INDIRECT BILIRUBIN 0.2 MG/DL (0.0-0.8); TOTAL BILIRUBIN ADULT 0.3 MG/DL (0.2-1.0)
--- NOTE | 2017-05-16 12:56 | HHI.PYPN ---
Subjective Chief Complaint: severe depression, severe weight loss Remarks Reviewed patient's chart, labs, and spoke with GINNY Antony about patient. Nurse advised that this am patient was abrasive during medication pass, is seclusive to his bed, and did not want to engage in conversation. Patient was seen in his room with GINNY Antony. Patient lying in bed on his left side. Patient answered questions appropriately with a flat affect, and his appearance is disheveled. When asked if he has SI, he states "No, I want someone else to kill me, I'm too weak to do it". He is scheduled for a liver scan at 1400 hours today, due to elevated LFTs, which continue to trend up. GINNY Antony reports that patient's reported extended use of Percocet by patient due to a shoulder surgery. The denied chronic alcohol use by patient. He denies any change in mood at this time. He does report some stressors: his has a lymphoma and that there has been some marital discord, "we think differently". Although patient is NPO due to impending liver scan, he expresses interest in food, nurse advised a tray will be set aside for him. Discussed possible ECT, patient claims that his father had it done in 1963 w/o success. Explained that there have been advances made and it may be a good option if he continues to be resistant to medication therapy. Obtained verbal consent for Atarax and Benadryl with GINNY Antony in room to witness. Patient unable to sign due to his hands being rigid and claw-like. He reports that "they have been this way for months and months". Discussed patient with Dr Earl, will continue to monitor , make medication adjustments, and explore ECT further. Mental Status Examination Appearance: Disheveled Consciousness: Alert Orientation: Person, Place, Date/Time, Situation Motor Activity: Other (patient laying in bed unable to ascertain) Speech: Unremarkable Language: Adequate Fund of Knowledge: Adequate Attention and Concentration: Other (fair) Memory: Unremarkable Mood: Sad (depressed), Other (melancholic and anhedonic) Affect: Flat Thought Process & Associations: Intact Thought Content: Bizarre thinking Hallucination Type: Olfactory, Tactile Delusion Type: Paranoid Suicidal Ideation: Yes (to be shot with a gun) Suicidal Plan: No Suicidal Intention: No Homicidal Ideation: No Homicidal Plan: No Homicidal Intention: No Insight: Poor Judgment: Poor Results Labs Test 05/16/17 11:15 Vitals/IOs Vital Signs Date Time Temp Pulse Resp B/P (MAP) Pulse Ox O2 Delivery O2 Flow Rate FiO2 05/16/17 06:51 97.4 60 14 99/55 (70) 100 Intake and Output 05/16/17 05/16/17 05/17/17 08:00 16:00 00:00 Intake Total 360 ml Balance 360 ml Assessment & Plan Problem List: (1) Major depressive disorder, recurrent, severe with psychotic features ICD Codes: F33.3 - Major depressive disorder, recurrent, severe with psychotic symptoms Status: Chronic Assessment & Plan Estimated LOS: days Will continue to monitor, adjust medications as necessary, and explore possible ECT. Justification for Cont. Inpt. Patient will decompensate if moved to a lower level of care at this time. Request HC Surrog/Guard Advoc?: Yes Gina Mcclain May 16, 2017 12:56 pm
[2017-05-16 14:05] LABS: HEPATITIS A AB IGM NEGATIVE (NEGATIVE); HEPATITIS B CORE AB IGM NEGATIVE (NEGATIVE); HEPATITIS B SURFACE ANTIGEN NEGATIVE (NEGATIVE); HEPATITIS C AB IgG NEGATIVE (NEGATIVE)
--- NOTE | 2017-05-16 15:08 | RADRPT ---
EXAM DATE/TIME: 05/16/2017 13:29 [facility] COMPARISON: No previous studies available for comparison. INDICATIONS : Increased lab values. MEDICAL HISTORY : Hypercholesterolemia. SURGICAL HISTORY : Cataract surgery. Carpal tunnel release. ENCOUNTER: Initial ACUITY: 1 day PAIN SCORE: Nonresponsive. LOCATION: Abdomen. MEASUREMENTS: LIVER: 12.3 cm length COMMON DUCT: Non-visualized RIGHT KIDNEY: 10.9 x 3.9 x 3.9 cm SPLEEN: 11.2 cm length FINDINGS: Examination is limited due to bowel gas and body habitus. LIVER: Incompletely visualized. Normal echotexture without focal lesion or ductal dilatation. COMMON DUCT: No intraluminal mass or stone visualized. GALLBLADDER: Contains no stones, demonstrates no wall thickening or pericholecystic fluid. PANCREAS: Obscured. RIGHT KIDNEY: No hydronephrosis, stone or mass. SPLEEN: No focal lesion. CONCLUSION: 1. Limited examination due to bowel gas and body habitus. 2. No biliary ductal dilatation or cholelithiasis or findings suggesting cholecystitis. 3. Incompletely visualized liver. However, the visualized portions appear unremarkable by ultrasound. 4. Pancreas is not visualized. Shay Rodriguez MD on May 16, 2017 at 15:04 Board Certified Radiologist. This report was verified electronically.
[2017-05-16] MEDS ORDERED: DIATRIZOATE MEGLUM/DIATRIZOATE SOD 9 ML CUP PO ONE (17:45)
[2017-05-16 18:17] VITALS: BP 110/57; PULSE 71; RESP 15; TEMP 98; O2SAT 98
[2017-05-16] MEDS: MIRTAZAPINE 15 MG TAB PO SCH (21:07)
[2017-05-17] MEDS ORDERED: IOHEXOL 350 MG/ML 10 ML VIAL (for RAD DIAG) IVCONTRAST ONE (00:06)
--- NOTE | 2017-05-17 00:22 | RADRPT ---
EXAM DATE/TIME: 05/17/2017 00:00 [facility] COMPARISON: US ABDOMEN - LIVER, May 16, 2017, 13:29. INDICATIONS : Abdomen pain. IV CONTRAST: 100 cc Omnipaque 350 (iohexol) IV ORAL CONTRAST: Patient refused oral contrast. RADIATION DOSE: 4.65 CTDIvol (mGy) MEDICAL HISTORY : None SURGICAL HISTORY : None. ENCOUNTER: Initial ACUITY: 1 day PAIN SCALE: 5/10 LOCATION: Bilateral abdomen TECHNIQUE: Volumetric scanning of the abdomen and pelvis was performed. Using automated exposure control and ad justment of the mA and/or kV according to patient size, radiation dose was kept as low as reasonably achievable to obtain optimal diagnostic quality images. DICOM format image data is available electro nically for review and comparison. FINDINGS: LOWER LUNGS: The visualized lower lungs are clear. LIVER: Homogeneous density without lesion. There is no dilation of the biliary tree. No calcified gallston es. SPLEEN: Normal size without lesion. PANCREAS: Within normal limits. KIDNEYS: Normal in size and shape. There is no solid mass or hydronephrosis. There are multiple bilateral sma ll nonobstructing renal calculi. A simple cyst is noted in the left kidney. ADRENAL GLANDS: Within normal limits. VASCULAR: There is no aortic aneurysm. BOWEL/MESENTERY: No oral contrast was given limiting sensitivity. There are multiple loops of nondilated air-containin g small bowel with several small air-fluid levels. Gas and stool is noted segmentally in the colon. T here is no definite free air or fluid. ABDOMINAL WALL: Within normal limits. RETROPERITONEUM: There is no lymphadenopathy. BLADDER: No wall thickening or mass. REPRODUCTIVE: The prostate gland is enlarged and inhomogeneous. There is an inhomogeneous mass extending into the r ight posterior bladder. INGUINAL: There is no lymphadenopathy or hernia. MUSCULOSKELETAL: Within normal limits for patient age. CONCLUSION: 1. Multiple bilateral small nonobstructing renal calculi. 2. Nonspecific, nonobstructed bowel gas pattern she represent a gastroenteritis and/or ileus. 3. Moderate enlargement of the prostate gland which is inhomogeneous. There is a masslike structure p rojecting into the posterior right side of the bladder. Differential diagnosis includes a true bladde r tumor or prominent median lobe of the prostate gland. Kvng Morejon MD on May 17, 2017 at 0:15 Board Certified Radiologist. This report was verified electronically.
[2017-05-17] MEDS: ARIPiprazole 5 MG TAB PO SCH (09:09)
--- NOTE | 2017-05-17 12:36 | HHI.PR ---
Subjective Remarks Follow up visit for cachexia, elevated transaminases, and HTN. Discussed with nurse who did not voice any acute concerns today. Patient is seen and examined in room resting comfortably in no acute distress. He denies any fevers, chills, N/V/D. Repots constipation, but then states that he is having stools that are paste consistency and brown, last BM yesterday. He denies any abdominal pain or discomfort. He states he ambulated with PT yesterday, states "the just walked with me in the [place] and then back and that was it". I tell him I will check on him tomorrow and he tells me "oh must shoot me". Objective Vitals Vital Signs Date Time Temp Pulse Resp B/P (MAP) Pulse Ox O2 Delivery O2 Flow Rate FiO2 05/16/17 18:17 98.0 71 15 110/57 (74) 98 I/O 05/16/17 05/16/17 05/16/17 05/17/17 05/17/17 05/17/17 07:00 15:00 23:00 07:00 15:00 23:00 Intake Total 1080 ml 240 ml 240 ml Output Total 2 ml Balance 1080 ml 238 ml 240 ml Intake Oral 1080 ml 240 ml 240 ml Output Urine Total 2 ml # Voids 0 3 # Bowel Movements 2 Result Diagram: 05/13/17 0932 05/13/17 0932 Imaging Last Impressions Liver Ultrasound 05/16/17 0000 Signed Impressions: Service Date/Time: Tuesday, May 16, 2017 13:29 - CONCLUSION: 1. Limited examination due to bowel gas and body habitus. 2. No biliary ductal dilatation or cholelithiasis or findings suggesting cholecystitis. 3. Incompletely visualized liver. However, the visualized portions appear unremarkable by ultrasound. 4. Pancreas is not visualized. Shay Rodriguez MD Abdomen/Pelvis CT 05/16/17 0000 Signed Impressions: Service Date/Time: Wednesday, May 17, 2017 00:00 - CONCLUSION: 1. Multiple bilateral small nonobstructing renal calculi. 2. Nonspecific, nonobstructed bowel gas pattern she represent a gastroenteritis and/or ileus. 3. Moderate enlargement of the prostate gland which is inhomogeneous. There is a masslike structure projecting into the posterior right side of the bladder. Differential diagnosis includes a true bladder tumor or prominent median lobe of the prostate gland. Kvng Morejon MD Chest X-Ray 05/11/17 0600 Signed Impressions: Service Date/Time: Thursday, May 11, 2017 12:51 - CONCLUSION: No acute disease. Vishal Cook MD FACR Objective Remarks GENERAL: This is a thin-appearing, well-developed patient, in no apparent distress. SKIN: Warm and dry. HEENT: Normocephalic. Pupils equal round and reactive. Nose without bleeding. Airway patent. NECK: Trachea midline. No JVD. Supple. CARDIOVASCULAR: Regular rate and rhythm without murmurs, gallops, or rubs. RESPIRATORY: Clear to auscultation. Breath sounds equal bilaterally. No wheezes , rales, or rhonchi. GASTROINTESTINAL: Abdomen soft, non-tender, nondistended. Bowel Sounds normoactive x4. MUSCULOSKELETAL: Extremities without clubbing, cyanosis, or edema. NEUROLOGICAL: Awake and alert. Moves all extremities. Speech is clear. A/P Problem List: (1) Major depressive disorder, recurrent, severe with psychotic features ICD Code: F33.3 - Major depressive disorder, recurrent, severe with psychotic symptoms Status: Chronic Assessment and Plan Patient is a 71-year-old male who came into the hospital transferred from [facility] for psychiatric management. Major Depression - Management per psychiatry. - CT report reviewed no acute intracranial process Cachexia. ? secondary to major depression - Prealbumin level 22 - Dietitian for nutritional consult and recommendation - Hopefully with management of depression. Appetite will improve - Continue ensure with meals Elevated transaminases from review of labs from [facility] - AST 104 ALT 128. - Repeat labs with continued elevated LFTs. - US abdomen completed on 05/16 1. Limited examination due to bowel gas and body habitus. 2. No biliary ductal dilatation or cholelithiasis or findings suggesting cholecystitis. 3. Incompletely visualized liver. However, the visualized portions appear unremarkable by ultrasound. 4. Pancreas is not visualized. - CT of abdomen completed on 05/16 reviewed, 1. Multiple bilateral small nonobstructing renal calculi. 2. Nonspecific, nonobstructed bowel gas pattern she represent a gastroenteritis and/or ileus. 3. Moderate enlargement of the prostate gland which is inhomogeneous. There is a masslike structure projecting into the posterior right side of the bladder. Differential diagnosis includes a true bladder tumor or prominent median lobe of the prostate gland. - Check hepatitis panel checked, negative. - Check PSA to evaluate for enlarged prostate on CT, as well as check UA with micro and cytology for possible bladder mass as noted in CT scan. - Liver on CT WNL - Check Tylenol level, Hypertension, controlled - Previously on amlodipine 5 mg daily. BP stable, hold amlodipine for now, continue monitoring - 12-lead EKG is negative - CXR PA/LAT no acute disease ? History of chronic pain - No complaints of pain. Appears comfortable on exam DVT prop Encourage ambulation. Discussed with nurse. Chi Daniels May 17, 2017 12:36
--- NOTE | 2017-05-17 13:23 | HHI.PYPN ---
Subjective Chief Complaint: severe depression, severe weight loss Remarks Patient seen in his bed with nurse Madison and medical student Jacob, chart reviewed, patient discussed with nurse. Patient remains alert though continues depressed, his delusions remain without change except that now he states his bones are rotting in his legs and feet, his vague about suicidality. Though remains the hopelessness. He questions the treatment team why we are even helping him. I did discuss with them the possible alternative of ECT. Patient did not overtly deny that possibility. For now continue treatment Review of Systems Except as stated in HPI: all other systems reviewed are Neg Mental Status Examination Appearance: Disheveled Consciousness: Alert Orientation: Person, Place, Date/Time, Situation Motor Activity: Other (patient laying in bed unable to ascertain) Speech: Unremarkable Language: Adequate Fund of Knowledge: Adequate Attention and Concentration: Other (fair) Memory: Unremarkable Mood: Sad (depressed), Other (melancholic and anhedonic) Affect: Flat Thought Process & Associations: Intact Thought Content: Bizarre thinking Hallucination Type: Olfactory, Tactile Delusion Type: Paranoid Suicidal Ideation: Yes (to be shot with a gun) Suicidal Plan: No Suicidal Intention: No Homicidal Ideation: No Homicidal Plan: No Homicidal Intention: No Insight: Poor Judgment: Poor Results Vitals/IOs Vital Signs Date Time Temp Pulse Resp B/P (MAP) Pulse Ox O2 Delivery O2 Flow Rate FiO2 05/16/17 18:17 98.0 71 15 110/57 (74) 98 Intake and Output 05/17/17 05/17/17 05/18/17 08:00 16:00 00:00 Intake Total 240 ml 120 ml Balance 240 ml 120 ml Assessment & Plan Problem List: (1) Major depressive disorder, recurrent, severe with psychotic features ICD Codes: F33.3 - Major depressive disorder, recurrent, severe with psychotic symptoms Status: Chronic Assessment & Plan Estimated LOS: days patient continues psychotic and delusional. Compliant medications. Continues making attempts to eat and drink sufficient. We did broach the subject of ACT with them. They did not immediately rejects the idea Justification for Cont. Inpt. At this time patient decompensated placed a lower level of care Discharge Planning Placement may be problematic Request HC Surrog/Guard Advoc?: Yes Casa Earl MD May 17, 2017 13:23
--- NOTE | 2017-05-17 13:55 | PD.TTN ---
Patient Problems 1. Discharge planning 2. Medication compliance 3. Knowledge deficit 4. Lack of coping skills Progress Toward Goals Provider Present: Dr. Narinder Earl Provider Input: 05/16/17 remains very depressed regardless of med adjustment, may be a candidate for ECT Psychiatric Counselors Present: Jenna Rodriguez LCSW Psych Therapist Input: 05/16/17 spoke with about ECT and coming to visit patient , she is not sure about ECT Group Spec/RT/OT/JUAN Present: Beny Ragsdale OT Group Spec/RT/OT/JUAN Input: 05/16/17 does not attend groups Jenna Rodriguez LCSW May 17, 2017 13:55
[2017-05-17 15:33] LABS: BILIRUBIN, URINE NEG (NEG); BLOOD, URINE NEG (NEG); GLUCOSE,URINE NEG (NEG); KETONE, URINE NEG (NEG); NITRITE,URINE NEG (NEG); PH, URINE 7.5 (5.0-8.5); SQUAMOUS EPITHELIAL CELL URINE <1 /hpf (0-5); URINE COLOR YELLOW (YELLW/STRAW); URINE LEUKOCYTE ESTERASE NEG (NEG)
[2017-05-17 18:00] VITALS: BP 110/58; PULSE 62; RESP 16; TEMP 98; O2SAT 97
[2017-05-17] MEDS: MIRTAZAPINE 15 MG TAB PO SCH (21:00)
[2017-05-18 05:20] VITALS: BP 110/55; PULSE 62; RESP 16; TEMP 97.6
[2017-05-18] MEDS: ARIPiprazole 5 MG TAB PO SCH (08:15)
[2017-05-18 11:04] LABS: ALBUMIN 3.5 GM/DL (3.4-5.0); DIRECT BILIRUBIN ADULT 0.1 MG/DL (0.0-0.2)
[2017-05-18 11:05] LABS: INDIRECT BILIRUBIN 0.2 MG/DL (0.0-0.8); TOTAL BILIRUBIN ADULT 0.3 MG/DL (0.2-1.0); TOTAL PROTEIN 6.7 GM/DL (6.4-8.2)
--- NOTE | 2017-05-18 11:09 | HHI.PR ---
Subjective Remarks Follow up visit for cachexia, elevated transaminases, and HTN. Repots today that he is hurting all over rates pain /, states that he has been having this pain for some time now. States that when people bother him it makes pain worse, nothing makes pain better. He then goes on to state "obviously you medical doctors have never had a toothache". I ask regarding toothache and he is reluctant to show me his mouth and states this is what causes it all. Spoke with nurse who repots patient continues to be delusional and still with suicidal thoughts. Denies any fevers, chills, nausea, vomiting, diarrhea, SOB or cough. Denies dysuria or hematuria with voiding. Objective Vitals Vital Signs Date Time Temp Pulse Resp B/P (MAP) Pulse Ox O2 Delivery O2 Flow Rate FiO2 05/18/17 05:20 97.6 62 16 110/55 (73) 05/17/17 18:00 98.0 62 16 110/58 (75) 97 I/O 05/17/17 05/17/17 05/17/17 05/18/17 05/18/17 05/18/17 07:00 15:00 23:00 07:00 15:00 23:00 Intake Total 1080 ml 120 ml 120 ml Output Total 0 ml Balance 1080 ml 120 ml 120 ml Intake Oral 1080 ml 120 ml 120 ml Output Urine Total 0 ml # Voids 5 0 Imaging Last Impressions Liver Ultrasound 05/16/17 0000 Signed Impressions: Service Date/Time: Tuesday, May 16, 2017 13:29 - CONCLUSION: 1. Limited examination due to bowel gas and body habitus. 2. No biliary ductal dilatation or cholelithiasis or findings suggesting cholecystitis. 3. Incompletely visualized liver. However, the visualized portions appear unremarkable by ultrasound. 4. Pancreas is not visualized. Shay Rodriguez MD Abdomen/Pelvis CT 05/16/17 0000 Signed Impressions: Service Date/Time: Wednesday, May 17, 2017 00:00 - CONCLUSION: 1. Multiple bilateral small nonobstructing renal calculi. 2. Nonspecific, nonobstructed bowel gas pattern she represent a gastroenteritis and/or ileus. 3. Moderate enlargement of the prostate gland which is inhomogeneous. There is a masslike structure projecting into the posterior right side of the bladder. Differential diagnosis includes a true bladder tumor or prominent median lobe of the prostate gland. Kvng Morejon MD Chest X-Ray 05/11/17 0600 Signed Impressions: Service Date/Time: Thursday, May 11, 2017 12:51 - CONCLUSION: No acute disease. Vishal Cook MD FACR Objective Remarks GENERAL: This is a thin-appearing, well-developed patient, in no apparent distress. SKIN: Warm and dry. HEENT: Normocephalic. Pupils equal round and reactive. Nose without bleeding. Airway patent. NECK: Trachea midline. No JVD. Supple. CARDIOVASCULAR: Regular rate and rhythm without murmurs, gallops, or rubs. RESPIRATORY: Clear to auscultation. Breath sounds equal bilaterally. No wheezes , rales, or rhonchi. GASTROINTESTINAL: Abdomen soft, non-tender, nondistended. Bowel Sounds normoactive x4. MUSCULOSKELETAL: Extremities without clubbing, cyanosis, or edema. NEUROLOGICAL: Awake and alert. Moves all extremities. Speech is clear. A/P Problem List: (1) Major depressive disorder, recurrent, severe with psychotic features ICD Code: F33.3 - Major depressive disorder, recurrent, severe with psychotic symptoms Status: Chronic Assessment and Plan Patient is a 71-year-old male who came into the hospital transferred from [facility] for psychiatric management. Major Depression - Management per psychiatry. - CT report reviewed no acute intracranial process Cachexia. ? secondary to major depression - Prealbumin level 22 - Dietitian for nutritional consult and recommendation - Hopefully with management of depression. Appetite will improve - Continue ensure with meals Elevated transaminases from review of labs from [place] - AST 104 ALT 128. - LFT's better, no elevation on bilirubin. - US abdomen completed on 05/16 1. Limited examination due to bowel gas and body habitus. 2. No biliary ductal dilatation or cholelithiasis or findings suggesting cholecystitis. 3. Incompletely visualized liver. However, the visualized portions appear unremarkable by ultrasound. 4. Pancreas is not visualized. - CT of abdomen completed on 05/16 reviewed, 1. Multiple bilateral small nonobstructing renal calculi. 2. Nonspecific, nonobstructed bowel gas pattern she represent a gastroenteritis and/or ileus. 3. Moderate enlargement of the prostate gland which is inhomogeneous. There is a masslike structure projecting into the posterior right side of the bladder. Differential diagnosis includes a true bladder tumor or prominent median lobe of the prostate gland. - Check hepatitis panel checked, negative. - PSA 1.86 - UA with micro and cytology pending for possible bladder mass as noted in CT scan. - Liver on CT WNL - Tylenol level <2.0 Hypertension, controlled - Previously on amlodipine 5 mg daily. BP stable, hold amlodipine for now, continue monitoring - 12-lead EKG is negative - CXR PA/LAT no acute disease ? History of chronic pain - Looks like he was on Fentanyl patch before, ? if pain is also psych related as he was unable to provide a good description or location of pain. - Will try Tramadol PRN for pain DVT prop Encourage ambulation. Discussed with nurse. Chi Daniels May 18, 2017 11:09
--- NOTE | 2017-05-18 15:17 | HHI.PYPN ---
Subjective Chief Complaint: severe depression, severe weight loss Remarks Patient seen in his room with nurse Madison, chart review, patient discussed with nurse. Patient showing some slight increase in affect and improvement in eye contact. Patient remains delusional believes his teeth are rotting and dissolving in his mouth, omeprazole developing his cheek. He also believes his blood is large. He also is willing to take the suicide pill Review of Systems Except as stated in HPI: all other systems reviewed are Neg Mental Status Examination Appearance: Disheveled Consciousness: Alert Orientation: Person, Place, Date/Time, Situation Motor Activity: Other (patient laying in bed unable to ascertain) Speech: Unremarkable Language: Adequate Fund of Knowledge: Adequate Attention and Concentration: Other (fair) Memory: Unremarkable Mood: Sad (depressed), Other (melancholic and anhedonic) Affect: Flat Thought Process & Associations: Intact Thought Content: Bizarre thinking Hallucination Type: Olfactory, Tactile Delusion Type: Paranoid Suicidal Ideation: Yes (to be shot with a gun) Suicidal Plan: No Suicidal Intention: No Homicidal Ideation: No Homicidal Plan: No Homicidal Intention: No Insight: Poor Judgment: Poor Results Labs Test 05/18/17 08:44 Total Bilirubin 0.3 MG/DL Direct Bilirubin 0.1 MG/DL Indirect Bilirubin 0.2 MG/DL Aspartate Amino Transf (AST/SGOT) 219 U/L Alanine Aminotransferase (ALT/SGPT) 277 U/L Alkaline Phosphatase 79 U/L Total Protein 6.7 GM/DL Albumin 3.5 GM/DL Prostate Specific Antigen 1.86 NG/ML Acetaminophen Level LESS THAN 2.0 MCG/ML Vitals/IOs Vital Signs Date Time Temp Pulse Resp B/P (MAP) Pulse Ox O2 Delivery O2 Flow Rate FiO2 05/18/17 05:20 97.6 62 16 110/55 (73) 05/17/17 18:00 97 Intake and Output 05/18/17 05/18/17 05/19/17 08:00 16:00 00:00 Intake Total 0 ml Output Total 0 ml Balance 0 ml Assessment & Plan Problem List: (1) Major depressive disorder, recurrent, severe with psychotic features ICD Codes: F33.3 - Major depressive disorder, recurrent, severe with psychotic symptoms Status: Chronic Assessment & Plan Estimated LOS: days patient remains depressed and delusional. Patient scheduled for [place] [facility] tomorrow Justification for Cont. Inpt. At this time patient decompensated placed on lower level of care Discharge Planning Placement remains problematic, we may consider the possibility of ECT Request HC Surrog/Guard Advoc?: Yes Casa Earl MD May 18, 2017 15:17
[2017-05-18] MEDS ORDERED: traMADol HCL 50 MG TAB PO PRN (15:30)
[2017-05-18 18:30] VITALS: BP 118/62; PULSE 74; RESP 18; TEMP 98.6; O2SAT 100
[2017-05-18] MEDS: MIRTAZAPINE 15 MG TAB PO SCH (20:19)
[2017-05-19 05:29] VITALS: BP 124/65; PULSE 61; RESP 16; TEMP 97.2; O2SAT 100
[2017-05-19] MEDS: ARIPiprazole 5 MG TAB PO SCH (09:04)
--- NOTE | 2017-05-19 11:13 | HHI.PYPN ---
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 Chart reviewed. Patient discussed with nurse. Patient continues with his delusions related to his body functions. She also remains quite depressed sad hopeless and helpless. We'll increase Remeron to 30 mg at bedtime Review of Systems Except as stated in HPI: all other systems reviewed are Neg Mental Status Examination Appearance: Disheveled Consciousness: Alert Orientation: Person, Place, Date/Time, Situation Motor Activity: Other (patient laying in bed unable to ascertain) Speech: Unremarkable Language: Adequate Fund of Knowledge: Adequate Attention and Concentration: Other (fair) Memory: Unremarkable Mood: Sad (depressed), Other (melancholic and anhedonic) Affect: Flat Thought Process & Associations: Intact Thought Content: Bizarre thinking Hallucination Type: Olfactory, Tactile Delusion Type: Paranoid Suicidal Ideation: Yes (to be shot with a gun) Suicidal Plan: No Suicidal Intention: No Homicidal Ideation: No Homicidal Plan: No Homicidal Intention: No Insight: Poor Judgment: Poor Results Vitals/IOs Vital Signs Date Time Temp Pulse Resp B/P (MAP) Pulse Ox O2 Delivery O2 Flow Rate FiO2 05/19/17 05:29 97.2 61 16 124/65 (84) 100 Intake and Output 05/19/17 05/19/17 05/20/17 08:00 16:00 00:00 Intake Total 0 ml 420 ml Output Total 475 ml Balance -475 ml 420 ml Assessment & Plan Problem List: (1) Major depressive disorder, recurrent, severe with psychotic features ICD Codes: F33.3 - Major depressive disorder, recurrent, severe with psychotic symptoms Status: Chronic Assessment & Plan Estimated LOS: days patient remains delusional and depressed, retained in [place] [facility], please see med adjustments Justification for Cont. Inpt. At this time patient decompensated placed in a lower level of care Discharge Planning Hopefully to return home with Request HC Surrog/Guard Advoc?: Yes Casa Earl MD May 19, 2017 11:13
--- NOTE | 2017-05-19 11:40 | HHI.PR ---
Subjective Remarks Follow up visit for cachexia, elevated transaminases, and HTN. Spoke with nurse who reports patient still having psychosis and thoughts that his teeth are falling out and that he is not well. Patient seen and examined in the day room eating lunch with visiting today. Patient appears comfortable and in no acute distress. He does not complain of any pain at the moment. Denies any nausea, vomiting, diarrhea, constipation, fevers, chills, dizziness, headaches, cough or SOB. He does repot pain in his abdomen, but states this is related to his tight belt. Objective Vitals Vital Signs Date Time Temp Pulse Resp B/P (MAP) Pulse Ox O2 Delivery O2 Flow Rate FiO2 05/19/17 05:29 97.2 61 16 124/65 (84) 100 05/18/17 18:30 98.6 74 18 118/62 (80) 100 I/O 05/18/17 05/18/17 05/18/17 05/19/17 05/19/17 05/19/17 07:00 15:00 23:00 07:00 15:00 23:00 Intake Total 120 ml 0 ml 0 ml 420 ml Output Total 0 ml 475 ml Balance 120 ml 0 ml -475 ml 420 ml Intake Oral 120 ml 0 ml 0 ml 420 ml Output Urine Total 0 ml 475 ml # Voids 0 0 Imaging Last Impressions Liver Ultrasound 05/16/17 0000 Signed Impressions: Service Date/Time: Tuesday, May 16, 2017 13:29 - CONCLUSION: 1. Limited examination due to bowel gas and body habitus. 2. No biliary ductal dilatation or cholelithiasis or findings suggesting cholecystitis. 3. Incompletely visualized liver. However, the visualized portions appear unremarkable by ultrasound. 4. Pancreas is not visualized. Sahy Rodriguez MD Abdomen/Pelvis CT 05/16/17 0000 Signed Impressions: Service Date/Time: Wednesday, May 17, 2017 00:00 - CONCLUSION: 1. Multiple bilateral small nonobstructing renal calculi. 2. Nonspecific, nonobstructed bowel gas pattern she represent a gastroenteritis and/or ileus. 3. Moderate enlargement of the prostate gland which is inhomogeneous. There is a masslike structure projecting into the posterior right side of the bladder. Differential diagnosis includes a true bladder tumor or prominent median lobe of the prostate gland. Kvng Morejon MD Chest X-Ray 05/11/17 0600 Signed Impressions: Service Date/Time: Thursday, May 11, 2017 12:51 - CONCLUSION: No acute disease. Vishal Cook MD FACR Objective Remarks GENERAL: This is a thin-appearing, well-developed patient, in no apparent distress. SKIN: Warm and dry. HEENT: Normocephalic. Pupils equal round and reactive. Nose without bleeding. Airway patent. NECK: Trachea midline. No JVD. Supple. CARDIOVASCULAR: Regular rate and rhythm without murmurs, gallops, or rubs. RESPIRATORY: Clear to auscultation. Breath sounds equal bilaterally. No wheezes , rales, or rhonchi. GASTROINTESTINAL: Abdomen soft, non-tender, nondistended. Bowel Sounds normoactive x4. MUSCULOSKELETAL: Extremities without clubbing, cyanosis, or edema. NEUROLOGICAL: Awake and alert. Moves all extremities. Speech is clear. A/P Problem List: (1) Major depressive disorder, recurrent, severe with psychotic features ICD Code: F33.3 - Major depressive disorder, recurrent, severe with psychotic symptoms Status: Chronic Assessment and Plan Patient is a 71-year-old male who came into the hospital transferred from [facility] for psychiatric management. Major Depression - Management per psychiatry. - CT report reviewed no acute intracranial process Cachexia. ? secondary to major depression - Prealbumin level 22 - Dietitian for nutritional consult and recommendation - Hopefully with management of depression. Appetite will improve - Continue ensure with meals Elevated transaminases from review of labs from [place] - AST 104 ALT 128. - LFT's better, no elevation on bilirubin. - US abdomen completed on 05/16 1. Limited examination due to bowel gas and body habitus. 2. No biliary ductal dilatation or cholelithiasis or findings suggesting cholecystitis. 3. Incompletely visualized liver. However, the visualized portions appear unremarkable by ultrasound. 4. Pancreas is not visualized. - CT of abdomen completed on 05/16 reviewed, 1. Multiple bilateral small nonobstructing renal calculi. 2. Nonspecific, nonobstructed bowel gas pattern she represent a gastroenteritis and/or ileus. 3. Moderate enlargement of the prostate gland which is inhomogeneous. There is a masslike structure projecting into the posterior right side of the bladder. Differential diagnosis includes a true bladder tumor or prominent median lobe of the prostate gland. - Check hepatitis panel checked, negative. ?bladder mass vs enlarged prostate - PSA 1.86 ( does report patient has a history of TURP) - UA with micro and cytology pending for possible bladder mass as noted in CT scan. - Will also check bladder ultrasound while we wait for urine cytology - Liver on CT WNL - Tylenol level <2.0 Hypertension, controlled - Previously on amlodipine 5 mg daily. BP stable, hold amlodipine for now, continue monitoring - 12-lead EKG is negative - CXR PA/LAT no acute disease ? History of chronic pain - Looks like he was on Fentanyl patch before. - Tramadol PRN for pain, no repots of pain today DVT prop Encourage ambulation. Discussed with and nurse. Chi Daniels May 19, 2017 11:40
[2017-05-19 17:28] VITALS: BP 120/68; PULSE 74; RESP 16; TEMP 98.2; O2SAT 100
--- NOTE | 2017-05-19 17:51 | RADRPT ---
EXAM DATE/TIME: 05/19/2017 17:14 [place] COMPARISON: CT ABDOMEN & PELVIS W CONTRAST, May 17, 2017, 0:00. INDICATIONS : Suspected bladder mass seen on CT. MEDICAL HISTORY : Hypercholesterolemia. SURGICAL HISTORY : Carpal tunnel syndrome. ENCOUNTER: Subsequent ACUITY: 1 day PAIN SCORE: 0/10 LOCATION: Bilateral flank MEASUREMENTS: RIGHT KIDNEY: 9.8 x 4.8 x 4.0 cm LEFT KIDNEY: 11.5 x 3.7 x 4.5 cm FINDINGS: RIGHT KIDNEY: Multiple nonobstructing kidney stones present. No evidence of hydronephrosis. LEFT KIDNEY: Multiple nonobstructing kidney stones. No evidence of hydronephrosis. Cyst in the lateral upper pole cortex. BLADDER: Massively enlarged prostate with protrusion into the bladder base. CONCLUSION: Massively enlarged prostate. Bilateral nonobstructing renal stones. Casa Flores MD on May 19, 2017 at 17:46 Board Certified Radiologist. This report was verified electronically.
[2017-05-19] MEDS: MIRTAZAPINE 15 MG TAB PO SCH (20:13)
[2017-05-20 06:21] VITALS: BP 137/76; PULSE 78; RESP 20; TEMP 97.7; O2SAT 100
[2017-05-20] MEDS: ARIPiprazole 5 MG TAB PO SCH (09:15)
--- NOTE | 2017-05-20 11:29 | HHI.PYPN ---
Subjective Chief Complaint: severe depression, severe weight loss Remarks Patient seen in day room eating his lunch patient seen with nurse Orquidea and medical student Jacob, chart reviewed, patient discussed with nurse. Asked how he was feeling patient became somewhat agitated saying he feels no better. The list of the delusions that he has been claiming since admission. When asked about the possibility of ECT today he said "I'm not ready for that yet". Patient compliant medications. Will increase a.m. Abilify to 15 mg daily Review of Systems Except as stated in HPI: all other systems reviewed are Neg Mental Status Examination Appearance: Disheveled Consciousness: Alert Orientation: Person, Place, Date/Time, Situation Motor Activity: Other (patient laying in bed unable to ascertain) Speech: Unremarkable Language: Adequate Fund of Knowledge: Adequate Attention and Concentration: Other (fair) Memory: Unremarkable Mood: Sad (depressed), Other (melancholic and anhedonic) Affect: Flat Thought Process & Associations: Intact Thought Content: Bizarre thinking Hallucination Type: Olfactory, Tactile Delusion Type: Paranoid Suicidal Ideation: Yes (to be shot with a gun) Suicidal Plan: No Suicidal Intention: No Homicidal Ideation: No Homicidal Plan: No Homicidal Intention: No Insight: Poor Judgment: Poor Results Vitals/IOs Vital Signs Date Time Temp Pulse Resp B/P (MAP) Pulse Ox O2 Delivery O2 Flow Rate FiO2 05/20/17 06:21 97.7 78 20 137/76 (96) 100 Intake and Output 05/20/17 05/20/17 05/21/17 08:00 16:00 00:00 Intake Total 120 ml Balance 120 ml Assessment & Plan Problem List: (1) Major depressive disorder, recurrent, severe with psychotic features ICD Codes: F33.3 - Major depressive disorder, recurrent, severe with psychotic symptoms Status: Chronic Assessment & Plan Estimated LOS: days patient remains depressed and delusional please see medication adjustment Justification for Cont. Inpt. At this time patient will decompensate if placed at a lower level of care Discharge Planning Completion needs to be determined. We'll continue to discuss possibility of ECT Request HC Surrog/Guard Advoc?: Yes Casa Earl MD May 20, 2017 11:29
--- NOTE | 2017-05-20 13:14 | HHI.PR ---
Subjective Remarks Follow up visit for cachexia, elevated transaminases, and HTN. Patient is seen and examined sitting in the day room attempting to make a phone call. He denies any fevers, chills, nausea, vomiting, diarrhea, abdominal pain or discomfort. He denies any dysuria, hematuria, to difficulty emptying bladder entirely. Ask if he is having any kind of pain and he states that pain is in his teeth "because they buried them and they are rotting". Briefly discussed with him the results of bladder ultrasound which show a very large prostate protruding into the bladder. I also discussed with him that his urine has cells that are concerning and abnormal. He tells me he has had nearly 10 prostate biopsies done and they all come back negative. He had TURP done one year ago even though he did not want it done. He states his when behind his back and okayed it to be done. I discussed consulting urology with him for further recommendations , he is agreeable, also discussed with nurse. Objective Vitals Vital Signs Date Time Temp Pulse Resp B/P (MAP) Pulse Ox O2 Delivery O2 Flow Rate FiO2 05/20/17 06:21 97.7 78 20 137/76 (96) 100 05/19/17 17:28 98.2 74 16 120/68 (85) 100 I/O 05/19/17 05/19/17 05/19/17 05/20/17 05/20/17 05/20/17 07:00 15:00 23:00 07:00 15:00 23:00 Intake Total 0 ml 1260 ml 1620 ml 480 ml Output Total 475 ml Balance -475 ml 1260 ml 1620 ml 480 ml Intake Oral 0 ml 1260 ml 1620 ml 480 ml Output Urine Total 475 ml # Voids 3 Imaging Last Impressions Renal Ultrasound 05/19/17 0000 Signed Impressions: Service Date/Time: April 17:14 - CONCLUSION: Massively enlarged prostate. Bilateral nonobstructing renal stones. Casa Flores MD Liver Ultrasound 05/16/17 0000 Signed Impressions: Service Date/Time: Tuesday, May 16, 2017 13:29 - CONCLUSION: 1. Limited examination due to bowel gas and body habitus. 2. No biliary ductal dilatation or cholelithiasis or findings suggesting cholecystitis. 3. Incompletely visualized liver. However, the visualized portions appear unremarkable by ultrasound. 4. Pancreas is not visualized. Shay Rodriguez MD Abdomen/Pelvis CT 05/16/17 0000 Signed Impressions: Service Date/Time: Wednesday, May 17, 2017 00:00 - CONCLUSION: 1. Multiple bilateral small nonobstructing renal calculi. 2. Nonspecific, nonobstructed bowel gas pattern she represent a gastroenteritis and/or ileus. 3. Moderate enlargement of the prostate gland which is inhomogeneous. There is a masslike structure projecting into the posterior right side of the bladder. Differential diagnosis includes a true bladder tumor or prominent median lobe of the prostate gland. Kvng Morejon MD Chest X-Ray 05/11/17 0600 Signed Impressions: Service Date/Time: Thursday, May 11, 2017 12:51 - CONCLUSION: No acute disease. Vishal Cook MD FACR Objective Remarks GENERAL: This is a thin-appearing, well-developed patient, in no apparent distress. SKIN: Warm and dry. HEENT: Normocephalic. Pupils equal round and reactive. Nose without bleeding. Airway patent. NECK: Trachea midline. No JVD. Supple. CARDIOVASCULAR: Regular rate and rhythm without murmurs, gallops, or rubs. RESPIRATORY: Clear to auscultation. Breath sounds equal bilaterally. No wheezes , rales, or rhonchi. GASTROINTESTINAL: Abdomen soft, non-tender, nondistended. Bowel Sounds normoactive x4. MUSCULOSKELETAL: Extremities without clubbing, cyanosis, or edema. NEUROLOGICAL: Awake and alert. Moves all extremities. Speech is clear. A/P Problem List: (1) Major depressive disorder, recurrent, severe with psychotic features ICD Code: F33.3 - Major depressive disorder, recurrent, severe with psychotic symptoms Status: Chronic Assessment and Plan Patient is a 71-year-old male who came into the hospital transferred from [facility] for psychiatric management. Major Depression - Management per psychiatry. - CT report reviewed no acute intracranial process Cachexia. ? secondary to major depression - Prealbumin level 22 - Dietitian for nutritional consult and recommendation - Hopefully with management of depression. Appetite will improve - Continue ensure with meals Elevated transaminases from review of labs from [place] - AST 104 ALT 128. - LFT's better, no elevation on bilirubin. - US abdomen completed on 05/16 1. Limited examination due to bowel gas and body habitus. 2. No biliary ductal dilatation or cholelithiasis or findings suggesting cholecystitis. 3. Incompletely visualized liver. However, the visualized portions appear unremarkable by ultrasound. 4. Pancreas is not visualized. - CT of abdomen completed on 05/16 reviewed, 1. Multiple bilateral small nonobstructing renal calculi. 2. Nonspecific, nonobstructed bowel gas pattern she represent a gastroenteritis and/or ileus. 3. Moderate enlargement of the prostate gland which is inhomogeneous. There is a masslike structure projecting into the posterior right side of the bladder. Differential diagnosis includes a true bladder tumor or prominent median lobe of the prostate gland. - Hepatitis panel checked, negative. - CT of abdomen with no acute finding on liver. Enlarged prostate protruding to bladder - PSA 1.86 ( does report patient has a history of TURP) - UA cytology with malignant cells present, favor low grade urothelial carcinoma. - Bladder US with massively enlarged prostate with protrusion into the bladder base. - Consult placed to urology, appreciate recommendations (consult discussed with ). Hypertension, controlled - Previously on amlodipine 5 mg daily. BP stable, hold amlodipine for now, continue monitoring - 12-lead EKG is negative - CXR PA/LAT no acute disease ? History of chronic pain - Looks like he was on Fentanyl patch before. - Tramadol PRN for pain. DVT prop Encourage ambulation. Discussed with nurse. Chi Daniels May 20, 2017 13:14
[2017-05-20] MEDS: MIRTAZAPINE 15 MG TAB PO SCH (20:25)
[2017-05-21 05:58] VITALS: BP 117/72; PULSE 67; RESP 17; TEMP 97.5; O2SAT 100
[2017-05-21] MEDS: ARIPiprazole 15 MG TAB PO SCH (08:43)
--- NOTE | 2017-05-21 11:31 | HHI.PR ---
Subjective Remarks Follow up visit for cachexia, elevated transaminases, and HTN. Patient seen and examined resting in bed in no acute distress. I asked to see how he was doing and he begins to tell me that he needs bread, he goes on to tell me that he will hold a bottle in his hand and it will be sucked up into his skin. He denies any fevers, chills, nausea, vomiting, diarrhea or headache. Urinating without difficulties, no dysuria. Objective Vitals Vital Signs Date Time Temp Pulse Resp B/P (MAP) Pulse Ox O2 Delivery O2 Flow Rate FiO2 05/21/17 05:58 97.5 67 17 117/72 (87) 100 I/O 05/20/17 05/20/17 05/20/17 05/21/17 05/21/17 05/21/17 07:00 15:00 23:00 07:00 15:00 23:00 Intake Total 480 ml 960 ml 240 ml Balance 480 ml 960 ml 240 ml Intake Oral 480 ml 960 ml 240 ml # Voids 3 2 # Bowel Movements 0 Imaging Last Impressions Renal Ultrasound 05/19/17 0000 Signed Impressions: Service Date/Time: April 17:14 - CONCLUSION: Massively enlarged prostate. Bilateral nonobstructing renal stones. Casa Flores MD Liver Ultrasound 05/16/17 0000 Signed Impressions: Service Date/Time: Tuesday, May 16, 2017 13:29 - CONCLUSION: 1. Limited examination due to bowel gas and body habitus. 2. No biliary ductal dilatation or cholelithiasis or findings suggesting cholecystitis. 3. Incompletely visualized liver. However, the visualized portions appear unremarkable by ultrasound. 4. Pancreas is not visualized. Shay Rodriguez MD Abdomen/Pelvis CT 05/16/17 0000 Signed Impressions: Service Date/Time: Wednesday, May 17, 2017 00:00 - CONCLUSION: 1. Multiple bilateral small nonobstructing renal calculi. 2. Nonspecific, nonobstructed bowel gas pattern she represent a gastroenteritis and/or ileus. 3. Moderate enlargement of the prostate gland which is inhomogeneous. There is a masslike structure projecting into the posterior right side of the bladder. Differential diagnosis includes a true bladder tumor or prominent median lobe of the prostate gland. Kvng Morejon MD Chest X-Ray 05/11/17 0600 Signed Impressions: Service Date/Time: Thursday, May 11, 2017 12:51 - CONCLUSION: No acute disease. Vishal Cook MD FACR Objective Remarks GENERAL: This is a thin-appearing, well-developed patient, in no apparent distress. SKIN: Warm and dry. HEENT: Normocephalic. Pupils equal round and reactive. Nose without bleeding. Airway patent. NECK: Trachea midline. No JVD. Supple. CARDIOVASCULAR: Regular rate and rhythm without murmurs, gallops, or rubs. RESPIRATORY: Clear to auscultation. Breath sounds equal bilaterally. No wheezes , rales, or rhonchi. GASTROINTESTINAL: Abdomen soft, non-tender, nondistended. Bowel Sounds normoactive x4. MUSCULOSKELETAL: Extremities without clubbing, cyanosis, or edema. NEUROLOGICAL: Awake and alert. Moves all extremities. Speech is clear. A/P Problem List: (1) Major depressive disorder, recurrent, severe with psychotic features ICD Code: F33.3 - Major depressive disorder, recurrent, severe with psychotic symptoms Status: Chronic Assessment and Plan Patient is a 71-year-old male who came into the hospital transferred from [facility] for psychiatric management. Major Depression - Management per psychiatry. - CT report reviewed no acute intracranial process Cachexia. ? secondary to major depression - Prealbumin level 22 - Dietitian for nutritional consult and recommendation - Hopefully with management of depression. Appetite will improve - Continue ensure with meals Elevated transaminases from review of labs from [place] - AST 104 ALT 128. - LFT's better, no elevation on bilirubin. - US abdomen completed on 05/16 1. Limited examination due to bowel gas and body habitus. 2. No biliary ductal dilatation or cholelithiasis or findings suggesting cholecystitis. 3. Incompletely visualized liver. However, the visualized portions appear unremarkable by ultrasound. 4. Pancreas is not visualized. - CT of abdomen completed on 05/16 reviewed, 1. Multiple bilateral small nonobstructing renal calculi. 2. Nonspecific, nonobstructed bowel gas pattern she represent a gastroenteritis and/or ileus. 3. Moderate enlargement of the prostate gland which is inhomogeneous. There is a masslike structure projecting into the posterior right side of the bladder. Differential diagnosis includes a true bladder tumor or prominent median lobe of the prostate gland. - Hepatitis panel checked, negative. - CT of abdomen with no acute finding on liver. Enlarged prostate protruding to bladder - PSA 1.86 ( does report patient has a history of TURP) - UA cytology with malignant cells present, favor low grade urothelial carcinoma. - Bladder US with massively enlarged prostate with protrusion into the bladder base. - Consult placed to urology, appreciate recommendations. Possible cystoscopy as order for NPO entered, will follow up. Hypertension, controlled - Previously on amlodipine 5 mg daily. BP stable, hold amlodipine for now, continue monitoring - 12-lead EKG is negative - CXR PA/LAT no acute disease ? History of chronic pain - Looks like he was on Fentanyl patch before. - Tramadol PRN for pain. DVT prop Encourage ambulation. Discussed with nurse. Chi Daniels May 21, 2017 11:31
--- NOTE | 2017-05-21 15:35 | HHI.PYPN ---
Subjective Chief Complaint: severe depression, severe weight loss Remarks Pt seen and discussed with staff. He is a poor historian and has little insight into admission. No agitation or aggression. Cooperative with care. He c/o that chest feels like he is being stabbed with needles. Vital signs within normal limits. EKG NSR. Troponin 1 pending. Hospitalist team notified. Mental Status Examination Appearance: Disheveled Consciousness: Alert Orientation: Person, Place, Date/Time, Situation Motor Activity: Other (patient laying in bed unable to ascertain) Speech: Unremarkable Language: Adequate Fund of Knowledge: Adequate Attention and Concentration: Other (fair) Memory: Unremarkable Mood: Sad (depressed), Other (melancholic and anhedonic) Affect: Flat Thought Process & Associations: Intact Thought Content: Bizarre thinking Hallucination Type: Olfactory, Tactile Delusion Type: Paranoid Suicidal Ideation: Yes (to be shot with a gun) Suicidal Plan: No Suicidal Intention: No Homicidal Ideation: No Homicidal Plan: No Homicidal Intention: No Insight: Poor Judgment: Poor Results Vitals/IOs Vital Signs Date Time Temp Pulse Resp B/P (MAP) Pulse Ox O2 Delivery O2 Flow Rate FiO2 05/21/17 05:58 97.5 67 17 117/72 (87) 100 Intake and Output 05/21/17 05/21/17 05/22/17 08:00 16:00 00:00 Intake Total 600 ml Balance 600 ml Assessment & Plan Problem List: (1) Major depressive disorder, recurrent, severe with psychotic features ICD Codes: F33.3 - Major depressive disorder, recurrent, severe with psychotic symptoms Status: Chronic Assessment & Plan Continue current tx plan. Appreciate hospitalist input. Estimated LOS: days Justification for Cont. Inpt. imparimetns in self care Request HC Surrog/Guard Advoc?: Yes Maria M Peck MD May 21, 2017 15:35
[2017-05-21 15:45] VITALS: BP 101/57; PULSE 64; RESP 20; TEMP 98.7
--- NOTE | 2017-05-21 17:04 | EKG ---
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
[2017-05-21 18:15] VITALS: BP 101/97; PULSE 64; RESP 18; TEMP 97.8; O2SAT 99
[2017-05-21] MEDS: MIRTAZAPINE 15 MG TAB PO SCH (20:55)
[2017-05-22 05:42] VITALS: BP 117/65; PULSE 59; RESP 16; TEMP 97.3; O2SAT 98
--- NOTE | 2017-05-22 07:15 | PD.CONS ---
HPI Service Urology Consult Requested By Reason for Consult Bladder Mass, abnormal cytology Primary Care Physician Unknown Diagnosis: (1) Major depressive disorder, recurrent, severe with psychotic features ICD Code: F33.3 - Major depressive disorder, recurrent, severe with psychotic symptoms History of Present Illness 71 yo male h/o BPH s/p TURP admitted with suicidal ideations after asking his to purchase a gun so that he could shoot himself. During his hospital stay , he developed abdominal pain and his liver enzymes started to rise. He had a Liver Ultrasound performed but it was an inconclusive study. He subsequently had a CT A/P done with IV contrast and it showed a possible mass in his bladder , very large prostate. A urine cytology was performed which cam back positive. Urology was consulted. He denies hematuria but has lost weight. Denies any issues voiding at this time but he is not the best historian. He c/o pain "all over". Denies h/o kidney stones. Review of Systems Psychiatric: COMPLAINS OF: Depression, Suicidal Ideation, DENIES: Anxiety, Confusion, Mood changes, Hallucinations, Agitation, Homicidal Ideation, Delusions Except as stated in HPI: all other systems reviewed are Neg Past Family Social History Past Medical History BPH, HTN, depression Past Surgical History TURP, circumcision, appendectomy, cataract surgery Reported Medications Wellbutrin, Seroquel, Norvasc Allergies: Coded Allergies: No Known Allergies (Unverified , 05/09/17) Family History Denies urolithiasis, malignancy Social History Denies tobacco/EtOH/illicit drugs; Physical Exam Vital Signs Date Time Temp Pulse Resp B/P (MAP) Pulse Ox O2 Delivery O2 Flow Rate FiO2 05/22/17 05:42 97.3 59 16 117/65 (82) 98 05/21/17 18:15 97.8 64 18 101/97 (98) 99 05/21/17 15:45 98.7 64 20 101/57 (72) Physical Exam GENERAL: This is a well-nourished, well-developed patient, in no apparent distress. SKIN: No rashes, ecchymoses or lesions. Cool and dry. HEAD: Atraumatic. Normocephalic. No temporal or scalp tenderness. EYES: Pupils equal round and reactive. Extraocular motions intact. No scleral icterus. No injection or drainage. ENT: Nose without bleeding, purulent drainage or septal hematoma. Throat without erythema, tonsillar hypertrophy or exudate. Uvula midline. Airway patent. NECK: Trachea midline. No JVD or lymphadenopathy. Supple, nontender, no meningeal signs. CARDIOVASCULAR: Regular rate and rhythm without murmurs, gallops, or rubs. RESPIRATORY: Clear to auscultation. Breath sounds equal bilaterally. No wheezes , rales, or rhonchi. GASTROINTESTINAL: Abdomen soft, non-tender, nondistended. No hepato-splenomegaly , or palpable masses. No guarding. No CVAT. GENITOURINARY: phallus circumcised, testes descended without mass; rectal exam deferred to time of cystoscopy. MUSCULOSKELETAL: Extremities without clubbing, cyanosis, or edema. No joint tenderness, effusion, or edema noted. No calf tenderness. Negative Homans sign bilaterally. NEUROLOGICAL: Awake and alert. Cranial nerves II through XII intact. Motor and sensory grossly within normal limits. Five out of 5 muscle strength in all muscle groups. Normal speech. Lab results reviewed: Yes Personally reviewed images: Yes (bladder mass versus median lobe of prostate) Imaging Last Impressions Renal Ultrasound 05/19/17 0000 Signed Impressions: Service Date/Time: April 17:14 - CONCLUSION: Massively enlarged prostate. Bilateral nonobstructing renal stones. Casa Flores MD Liver Ultrasound 05/16/17 0000 Signed Impressions: Service Date/Time: Tuesday, May 16, 2017 13:29 - CONCLUSION: 1. Limited examination due to bowel gas and body habitus. 2. No biliary ductal dilatation or cholelithiasis or findings suggesting cholecystitis. 3. Incompletely visualized liver. However, the visualized portions appear unremarkable by ultrasound. 4. Pancreas is not visualized. Shay Rodriguez MD Abdomen/Pelvis CT 05/16/17 0000 Signed Impressions: Service Date/Time: Wednesday, May 17, 2017 00:00 - CONCLUSION: 1. Multiple bilateral small nonobstructing renal calculi. 2. Nonspecific, nonobstructed bowel gas pattern she represent a gastroenteritis and/or ileus. 3. Moderate enlargement of the prostate gland which is inhomogeneous. There is a masslike structure projecting into the posterior right side of the bladder. Differential diagnosis includes a true bladder tumor or prominent median lobe of the prostate gland. Kvng Morejon MD Chest X-Ray 05/11/17 0600 Signed Impressions: Service Date/Time: Thursday, May 11, 2017 12:51 - CONCLUSION: No acute disease. Vishal Cook MD FACR Assessment and Plan Assessment and Plan 71 yo male h/o BPH s/p TURP with possible bladder mass, abnormal cytology -Recommend cystoscopy as outpatient to evaluate bladder for possible mass -Thank you for this consult. Please call with any questions. Available if needed. Loyd Brand MD May 22, 2017 07:15
[2017-05-22] MEDS: ARIPiprazole 15 MG TAB PO SCH (08:15)
--- NOTE | 2017-05-22 11:49 | HHI.PR ---
Subjective Remarks Follow up visit for cachexia, elevated transaminases, and HTN. Patient is seen and evaluated in his room resting comfortably in bed in no acute distress. He denies any fevers, chills, nausea, vomiting, diarrhea, constipation or abdominal pain. He denies any SOB or chest pain. Objective Vitals Vital Signs Date Time Temp Pulse Resp B/P (MAP) Pulse Ox O2 Delivery O2 Flow Rate FiO2 05/22/17 05:42 97.3 59 16 117/65 (82) 98 05/21/17 18:15 97.8 64 18 101/97 (98) 99 05/21/17 15:45 98.7 64 20 101/57 (72) I/O 05/21/17 05/21/17 05/21/17 05/22/17 05/22/17 05/22/17 07:00 15:00 23:00 07:00 15:00 23:00 Intake Total 600 ml 720 ml 600 ml Balance 600 ml 720 ml 600 ml Intake Oral 600 ml 720 ml 600 ml # Voids 2 # Bowel Movements 1 Imaging Last Impressions Renal Ultrasound 05/19/17 0000 Signed Impressions: Service Date/Time: April 17:14 - CONCLUSION: Massively enlarged prostate. Bilateral nonobstructing renal stones. Casa Flores MD Liver Ultrasound 05/16/17 0000 Signed Impressions: Service Date/Time: Tuesday, May 16, 2017 13:29 - CONCLUSION: 1. Limited examination due to bowel gas and body habitus. 2. No biliary ductal dilatation or cholelithiasis or findings suggesting cholecystitis. 3. Incompletely visualized liver. However, the visualized portions appear unremarkable by ultrasound. 4. Pancreas is not visualized. Shay Rodriguez MD Abdomen/Pelvis CT 05/16/17 0000 Signed Impressions: Service Date/Time: Wednesday, May 17, 2017 00:00 - CONCLUSION: 1. Multiple bilateral small nonobstructing renal calculi. 2. Nonspecific, nonobstructed bowel gas pattern she represent a gastroenteritis and/or ileus. 3. Moderate enlargement of the prostate gland which is inhomogeneous. There is a masslike structure projecting into the posterior right side of the bladder. Differential diagnosis includes a true bladder tumor or prominent median lobe of the prostate gland. Kvng Morejon MD Chest X-Ray 05/11/17 0600 Signed Impressions: Service Date/Time: Thursday, May 11, 2017 12:51 - CONCLUSION: No acute disease. Vishal Cook MD FACR Objective Remarks GENERAL: This is a thin-appearing, well-developed patient, in no apparent distress. SKIN: Warm and dry. HEENT: Normocephalic. Pupils equal round and reactive. Nose without bleeding. Airway patent. NECK: Trachea midline. No JVD. Supple. CARDIOVASCULAR: Regular rate and rhythm without murmurs, gallops, or rubs. RESPIRATORY: Clear to auscultation. Breath sounds equal bilaterally. No wheezes , rales, or rhonchi. GASTROINTESTINAL: Abdomen soft, non-tender, nondistended. Bowel Sounds normoactive x4. MUSCULOSKELETAL: Extremities without clubbing, cyanosis, or edema. NEUROLOGICAL: Awake and alert. Moves all extremities. Speech is clear. A/P Problem List: (1) Major depressive disorder, recurrent, severe with psychotic features ICD Code: F33.3 - Major depressive disorder, recurrent, severe with psychotic symptoms Status: Chronic Assessment and Plan Patient is a 71-year-old male who came into the hospital transferred from [facility] for psychiatric management. Major Depression - Management per psychiatry. - CT report reviewed no acute intracranial process Cachexia. ? secondary to major depression - Prealbumin level 22 - Dietitian for nutritional consult and recommendation - Hopefully with management of depression. Appetite will improve - Continue ensure with meals Elevated transaminases from review of labs from [place] - AST 104 ALT 128. - LFT's better, no elevation on bilirubin. - US abdomen completed on 05/16 1. Limited examination due to bowel gas and body habitus. 2. No biliary ductal dilatation or cholelithiasis or findings suggesting cholecystitis. 3. Incompletely visualized liver. However, the visualized portions appear unremarkable by ultrasound. 4. Pancreas is not visualized. - CT of abdomen completed on 05/16 reviewed, 1. Multiple bilateral small nonobstructing renal calculi. 2. Nonspecific, nonobstructed bowel gas pattern she represent a gastroenteritis and/or ileus. 3. Moderate enlargement of the prostate gland which is inhomogeneous. There is a masslike structure projecting into the posterior right side of the bladder. Differential diagnosis includes a true bladder tumor or prominent median lobe of the prostate gland. - Hepatitis panel checked, negative. - CT of abdomen with no acute finding on liver. Enlarged prostate protruding to bladder - PSA 1.86 ( does report patient has a history of TURP) - UA cytology with malignant cells present, favor low grade urothelial carcinoma. - Bladder US with massively enlarged prostate with protrusion into the bladder base. - Consult placed to urology, appreciate recommendations. Cystoscopy possibly as outpatient, urology note not yet finished. Hypertension, controlled - Previously on amlodipine 5 mg daily. BP stable, hold amlodipine for now, continue monitoring - 12-lead EKG is negative - CXR PA/LAT no acute disease ? History of chronic pain - Looks like he was on Fentanyl patch before. - Tramadol PRN for pain. Atypical CP - Patient reported CT on 05/21, stat Troponin ordered yesterday not done, ordered once again this AM - Troponin negative, EKG left anterior fascicular block AK of indeterminate age. -Denies any chest pain today. DVT prop Encourage ambulation. Discussed with nurse. Chi Daniels May 22, 2017 11:49
--- NOTE | 2017-05-22 14:53 | HHI.PYPN ---
Subjective Chief Complaint: severe depression, severe weight loss Remarks Pt seen and discussed with staff. He has remained isolative to room, spending most of day lying in bed. He did eat 100% of lunch and breakfast which is an improvement. No SI/HI Mental Status Examination Appearance: Disheveled Consciousness: Alert Orientation: Person, Place, Date/Time, Situation Motor Activity: Other (patient laying in bed unable to ascertain) Speech: Unremarkable Language: Adequate Fund of Knowledge: Adequate Attention and Concentration: Other (fair) Memory: Unremarkable Mood: Sad (depressed), Other (melancholic and anhedonic) Affect: Flat Thought Process & Associations: Intact Thought Content: Bizarre thinking Hallucination Type: Olfactory, Tactile Delusion Type: Paranoid Suicidal Ideation: Yes (to be shot with a gun) Suicidal Plan: No Suicidal Intention: No Homicidal Ideation: No Homicidal Plan: No Homicidal Intention: No Insight: Poor Judgment: Poor Results Labs Test 05/22/17 08:10 Troponin I LESS THAN 0.02 NG/ML Vitals/IOs Vital Signs Date Time Temp Pulse Resp B/P (MAP) Pulse Ox O2 Delivery O2 Flow Rate FiO2 05/22/17 05:42 97.3 59 16 117/65 (82) 98 Intake and Output 05/22/17 05/22/17 05/23/17 08:00 16:00 00:00 Intake Total 600 ml Balance 600 ml Assessment & Plan Problem List: (1) Major depressive disorder, recurrent, severe with psychotic features ICD Codes: F33.3 - Major depressive disorder, recurrent, severe with psychotic symptoms Status: Chronic Assessment & Plan Continue current tx plan. Estimated LOS: days Justification for Cont. Inpt. impairments in reality testing Request HC Surrog/Guard Advoc?: Yes Maria M Peck MD May 22, 2017 14:53
[2017-05-22 18:16] VITALS: BP 112/70; PULSE 73; RESP 16; TEMP 98.4; O2SAT 97
[2017-05-22] MEDS: MIRTAZAPINE 15 MG TAB PO SCH (21:00)
[2017-05-23 06:03] VITALS: BP 118/68; PULSE 63; RESP 17; TEMP 97.4; O2SAT 100
[2017-05-23] MEDS: ARIPiprazole 15 MG TAB PO SCH (08:25)
[2017-05-23 13:10] LABS: ALBUMIN 3.7 GM/DL (3.4-5.0); DIRECT BILIRUBIN ADULT 0.1 MG/DL (0.0-0.2)
--- NOTE | 2017-05-23 13:10 | HHI.PYPN ---
Subjective Chief Complaint: severe depression, severe weight loss Remarks Patient seen in his room with nurse Brooks, chart review, patient discussed with nurse. Patient laying quietly in bed flat on his back very still very little emotion affect in his face. Processes are goal oriented at times somewhat irritable. He states nothing much has changed. His chronic pain remains somewhat diffuse over his body. He denies any difficulty urinating says of his slight yellow color. I did review the urology consult with various lab testings that appear to be indicating patient with a cancer in his bladder. We' ll not sure that with him yet and need to discuss this with the Review of Systems Except as stated in HPI: all other systems reviewed are Neg Mental Status Examination Appearance: Disheveled Consciousness: Alert Orientation: Person, Place, Date/Time, Situation Motor Activity: Other (patient laying in bed unable to ascertain) Speech: Unremarkable Language: Adequate Fund of Knowledge: Adequate Attention and Concentration: Other (fair) Memory: Unremarkable Mood: Sad (depressed), Other (melancholic and anhedonic) Affect: Flat Thought Process & Associations: Intact Thought Content: Bizarre thinking Hallucination Type: Olfactory, Tactile Delusion Type: Paranoid Suicidal Ideation: Yes (to be shot with a gun) Suicidal Plan: No Suicidal Intention: No Homicidal Ideation: No Homicidal Plan: No Homicidal Intention: No Insight: Poor Judgment: Poor Results Labs Test 05/23/17 12:10 Vitals/IOs Vital Signs Date Time Temp Pulse Resp B/P (MAP) Pulse Ox O2 Delivery O2 Flow Rate FiO2 05/23/17 06:03 97.4 63 17 118/68 (85) 100 Intake and Output 05/23/17 05/23/17 05/24/17 08:00 16:00 00:00 Intake Total 0 ml 480 ml Balance 0 ml 480 ml Assessment & Plan Problem List: (1) Major depressive disorder, recurrent, severe with psychotic features ICD Codes: F33.3 - Major depressive disorder, recurrent, severe with psychotic symptoms Status: Chronic Assessment & Plan Estimated LOS: days patient continues depressed psychotic. The urological findings have been reviewed. They have not been discussed with the patient yet. I feel we need to first contact the discuss this with her and with the medical service as to how to approach this gentleman Justification for Cont. Inpt. At this time patient will decompensate if placed in the lower level of care Discharge Planning This needs to be determined Request HC Surrog/Guard Advoc?: Yes Casa Earl MD May 23, 2017 13:10
[2017-05-23 13:11] LABS: INDIRECT BILIRUBIN 0.2 MG/DL (0.0-0.8); TOTAL BILIRUBIN ADULT 0.3 MG/DL (0.2-1.0)
--- NOTE | 2017-05-23 13:11 | HHI.PR ---
Subjective Remarks Follow up visit for cachexia, elevated transaminases, and HTN. Patient seen and examined resting comfortably in bed in no acute distress. Patient denies any fevers, chills, nausea, vomiting, diarrhea or headaches. Denies any chest pain, or shortness of breath. He does report some constipation, states it has been 2 days since he has had a bowel movement, no abdominal pain. He denies any dysuria, or hematuria. Does state that sometimes when he is urinating he cannot stop. Objective Vitals Vital Signs Date Time Temp Pulse Resp B/P (MAP) Pulse Ox O2 Delivery O2 Flow Rate FiO2 05/23/17 06:03 97.4 63 17 118/68 (85) 100 05/22/17 18:16 98.4 73 16 112/70 (84) 97 I/O 05/22/17 05/22/17 05/22/17 05/23/17 05/23/17 05/23/17 07:00 15:00 23:00 07:00 15:00 23:00 Intake Total 480 ml 600 ml 1560 ml 0 ml 480 ml Balance 480 ml 600 ml 1560 ml 0 ml 480 ml Intake Oral 480 ml 600 ml 1560 ml 0 ml 480 ml # Voids 4 2 Imaging Last Impressions Renal Ultrasound 05/19/17 0000 Signed Impressions: Service Date/Time: April 17:14 - CONCLUSION: Massively enlarged prostate. Bilateral nonobstructing renal stones. Casa Flores MD Liver Ultrasound 05/16/17 0000 Signed Impressions: Service Date/Time: Tuesday, May 16, 2017 13:29 - CONCLUSION: 1. Limited examination due to bowel gas and body habitus. 2. No biliary ductal dilatation or cholelithiasis or findings suggesting cholecystitis. 3. Incompletely visualized liver. However, the visualized portions appear unremarkable by ultrasound. 4. Pancreas is not visualized. Shay Rodriguez MD Abdomen/Pelvis CT 05/16/17 0000 Signed Impressions: Service Date/Time: Wednesday, May 17, 2017 00:00 - CONCLUSION: 1. Multiple bilateral small nonobstructing renal calculi. 2. Nonspecific, nonobstructed bowel gas pattern she represent a gastroenteritis and/or ileus. 3. Moderate enlargement of the prostate gland which is inhomogeneous. There is a masslike structure projecting into the posterior right side of the bladder. Differential diagnosis includes a true bladder tumor or prominent median lobe of the prostate gland. Kvng Morejon MD Chest X-Ray 05/11/17 0600 Signed Impressions: Service Date/Time: Thursday, May 11, 2017 12:51 - CONCLUSION: No acute disease. Vishal Cook MD FACR Objective Remarks GENERAL: This is a thin-appearing, well-developed patient, in no apparent distress. SKIN: Warm and dry. HEENT: Normocephalic. Pupils equal round and reactive. Nose without bleeding. Airway patent. NECK: Trachea midline. No JVD. Supple. CARDIOVASCULAR: Regular rate and rhythm without murmurs, gallops, or rubs. RESPIRATORY: Clear to auscultation. Breath sounds equal bilaterally. No wheezes , rales, or rhonchi. GASTROINTESTINAL: Abdomen soft, non-tender, nondistended. Bowel Sounds normoactive x4. MUSCULOSKELETAL: Extremities without clubbing, cyanosis, or edema. NEUROLOGICAL: Awake and alert. Moves all extremities. Speech is clear. A/P Problem List: (1) Major depressive disorder, recurrent, severe with psychotic features ICD Code: F33.3 - Major depressive disorder, recurrent, severe with psychotic symptoms Status: Chronic Assessment and Plan Patient is a 71-year-old male who came into the hospital transferred from [facility] for psychiatric management. Major Depression - Management per psychiatry. - CT report reviewed no acute intracranial process Cachexia. ? secondary to major depression - Prealbumin level 22 - Dietitian for nutritional consult and recommendation - Hopefully with management of depression. Appetite will improve - Continue ensure with meals Elevated transaminases from review of labs from [place] - AST 104 ALT 128. -Liver function tests from today reviewed, LFTs continue to decrease - US abdomen completed on 05/16 1. Limited examination due to bowel gas and body habitus. 2. No biliary ductal dilatation or cholelithiasis or findings suggesting cholecystitis. 3. Incompletely visualized liver. However, the visualized portions appear unremarkable by ultrasound. 4. Pancreas is not visualized. - CT of abdomen completed on 05/16 reviewed, 1. Multiple bilateral small nonobstructing renal calculi. 2. Nonspecific, nonobstructed bowel gas pattern she represent a gastroenteritis and/or ileus. 3. Moderate enlargement of the prostate gland which is inhomogeneous. There is a masslike structure projecting into the posterior right side of the bladder. Differential diagnosis includes a true bladder tumor or prominent median lobe of the prostate gland. - Hepatitis panel checked, negative. - CT of abdomen with no acute finding on liver. Enlarged prostate protruding to bladder - PSA 1.86 ( does report patient has a history of TURP) - UA cytology with malignant cells present, favor low grade urothelial carcinoma. - Bladder US with massively enlarged prostate with protrusion into the bladder base. - Consult placed to urology, appreciate recommendations. Cystoscopy possibly as outpatient, ? if this can be done while he is here. - I have already discussed findings with patient, today I called (Tammi Aburto) and discussed with her the findings of US and urine. We will need urology to preform cystoscopy and biopsy, or give further recommendations. She understands and will be here on for meeting. Hypertension, controlled - Previously on amlodipine 5 mg daily. BP stable, hold amlodipine for now, continue monitoring - 12-lead EKG is negative - CXR PA/LAT no acute disease ? History of chronic pain - Looks like he was on Fentanyl patch before. - Tramadol PRN for pain. Atypical CP - Patient reported CT on 05/21, stat Troponin ordered yesterday not done, ordered once again this AM - Troponin negative, EKG left anterior fascicular block [place] of indeterminate age. - Denies any chest pain today. DVT prop Encourage ambulation. Discussed with nurse, and Tammi. Chi Daniels May 23, 2017 13:11
[2017-05-23 18:22] VITALS: BP 138/72; PULSE 88; RESP 18; TEMP 98.4; O2SAT 100
[2017-05-23] MEDS: MIRTAZAPINE 15 MG TAB PO SCH (20:54)
[2017-05-24 05:29] VITALS: BP 112/57; PULSE 63; RESP 17; TEMP 97.6; O2SAT 95
[2017-05-24] MEDS: ARIPiprazole 15 MG TAB PO SCH (08:36)
--- NOTE | 2017-05-24 12:52 | HHI.PYPN ---
Subjective Chief Complaint: severe depression, severe weight loss Remarks Patient seen in his room with nurse Orquidea, chart reviewed, patient discussed with nurse. Patient remains lying quite still in bed very flat affect, sad mood. Continues to complain of vague pain all over. He is vague about suicidality. We need to get patient's and family meeting to discuss how to approach the cancer diagnosis with this man. We then need to talk with urology about procedures they need to help refine the diagnosis Review of Systems Except as stated in HPI: all other systems reviewed are Neg Mental Status Examination Appearance: Disheveled Consciousness: Alert Orientation: Person, Place, Date/Time, Situation Motor Activity: Other (patient laying in bed unable to ascertain) Speech: Unremarkable Language: Adequate Fund of Knowledge: Adequate Attention and Concentration: Other (fair) Memory: Unremarkable Mood: Sad (depressed), Other (melancholic and anhedonic) Affect: Flat Thought Process & Associations: Intact Thought Content: Bizarre thinking Hallucination Type: Olfactory, Tactile Delusion Type: Paranoid Suicidal Ideation: Yes (to be shot with a gun) Suicidal Plan: No Suicidal Intention: No Homicidal Ideation: No Homicidal Plan: No Homicidal Intention: No Insight: Poor Judgment: Poor Results Vitals/IOs Vital Signs Date Time Temp Pulse Resp B/P (MAP) Pulse Ox O2 Delivery O2 Flow Rate FiO2 05/24/17 05:29 97.6 63 17 112/57 (75) 95 Intake and Output 05/24/17 05/24/17 05/25/17 08:00 16:00 00:00 Intake Total 240 ml Balance 240 ml Assessment & Plan Problem List: (1) Major depressive disorder, recurrent, severe with psychotic features ICD Codes: F33.3 - Major depressive disorder, recurrent, severe with psychotic symptoms Status: Chronic Assessment & Plan Estimated LOS: days patient remains depressed melancholic anhedonic and psychomotor retarded. But the same time is somewhat irritable. Will attempt to reach patient's to refer family meeting to discuss all of these various issues Justification for Cont. Inpt. At this time patient will decompensate if placed at a lower level of care Discharge Planning To be determined with consultation with family in neurology Request HC Surrog/Guard Advoc?: Yes Casa Earl MD May 24, 2017 12:52
--- NOTE | 2017-05-24 16:39 | HHI.PR ---
Subjective Remarks Follow-up on patient with cachexia, hypertension, transaminitis. Patient seen and examined. Patient lying quietly in bed in his room. He denies any acute complaints. He denies any chest pain or shortness of breath. Denies any nausea , vomiting or abdominal pain. States he's eating about 50% of his meals. States that he's not had a bowel movement in one month. He denies any urinary complaints. Discussed with GINNY Brooks, patient had BM yesterday, eating 100% of meals plus Ensure in between. He asked for charlee earlier today. Objective Vitals Vital Signs Date Time Temp Pulse Resp B/P (MAP) Pulse Ox O2 Delivery O2 Flow Rate FiO2 05/24/17 05:29 97.6 63 17 112/57 (75) 95 05/23/17 18:22 98.4 88 18 138/72 (94) 100 I/O 05/23/17 05/23/17 05/23/17 05/24/17 05/24/17 05/24/17 07:00 15:00 23:00 07:00 15:00 23:00 Intake Total 0 ml 1080 ml 240 ml 1080 ml Balance 0 ml 1080 ml 240 ml 1080 ml Intake Oral 0 ml 1080 ml 240 ml 1080 ml # Voids 2 4 1 2 5 # Bowel Movements 0 Imaging Last Impressions Renal Ultrasound 05/19/17 0000 Signed Impressions: Service Date/Time: April 17:14 - CONCLUSION: Massively enlarged prostate. Bilateral nonobstructing renal stones. Casa Flores MD Liver Ultrasound 05/16/17 0000 Signed Impressions: Service Date/Time: Tuesday, May 16, 2017 13:29 - CONCLUSION: 1. Limited examination due to bowel gas and body habitus. 2. No biliary ductal dilatation or cholelithiasis or findings suggesting cholecystitis. 3. Incompletely visualized liver. However, the visualized portions appear unremarkable by ultrasound. 4. Pancreas is not visualized. Shay Rodriguez MD Abdomen/Pelvis CT 05/16/17 0000 Signed Impressions: Service Date/Time: Wednesday, May 17, 2017 00:00 - CONCLUSION: 1. Multiple bilateral small nonobstructing renal calculi. 2. Nonspecific, nonobstructed bowel gas pattern she represent a gastroenteritis and/or ileus. 3. Moderate enlargement of the prostate gland which is inhomogeneous. There is a masslike structure projecting into the posterior right side of the bladder. Differential diagnosis includes a true bladder tumor or prominent median lobe of the prostate gland. Kvng Morejon MD Chest X-Ray 05/11/17 0600 Signed Impressions: Service Date/Time: Thursday, May 11, 2017 12:51 - CONCLUSION: No acute disease. Vishal Cook MD FACR Objective Remarks GENERAL: This is a thin, frail, cachectic-appearing male patient, in no apparent distress. Lying in bed. Awake and alert. Appears comfortable. SKIN: Warm and dry. Multiple scabs noted on both arms. HEENT: Normocephalic. EOMI. Nose without bleeding. Airway patent. MMM. NECK: Trachea midline. CARDIOVASCULAR: Regular rate and rhythm without murmurs, gallops, or rubs. RESPIRATORY: Clear to auscultation. Breath sounds equal bilaterally. No wheezes , rales, or rhonchi. GASTROINTESTINAL: Abdomen soft, non-tender, nondistended. Bowel Sounds normoactive x4. MUSCULOSKELETAL: Extremities without clubbing, cyanosis, or edema. NEUROLOGICAL: Awake and alert. Moves all extremities spontaneously. No focal neurologic findings appreciated. Speech is clear. PSYCHIATRIC: Flat affect. Depressed mood. Inappropriate judgment and insight. Medications and IVs Current Medications Medications (Trade) Dose Ordered Sig/Bertin Route Start Time Stop Time Status Last Admin (Benadryl) 50 mg HS PRN PO 05/10/17 11:45 (Tylenol) 650 mg Q4H PRN PO 05/10/17 11:45 05/15/17 02:11 (Milk Of Magnesia Liq) 30 ml DAILY PRN PO 05/10/17 11:45 (Mag-Al Plus Susp Liq) 30 ml Q6H PRN PO 05/10/17 11:45 (Atarax) 50 mg Q6H PRN PO 05/10/17 11:45 (Ultram) 50 mg Q8H PRN PO 05/18/17 15:30 (Remeron) 30 mg HS PO 05/19/17 21:00 05/23/17 20:54 (Abilify) 15 mg DAILY PO 05/21/17 09:00 05/24/17 08:36 A/P Problem List: (1) Major depressive disorder, recurrent, severe with psychotic features ICD Code: F33.3 - Major depressive disorder, recurrent, severe with psychotic symptoms Status: Chronic Assessment and Plan Patient is a 71-year-old male who came into the hospital transferred from [facility] for psychiatric management. Major Depression -Management per psychiatry -CT report reviewed no acute intracranial process Cachexia. ? secondary to major depression -eating well per RN -Prealbumin level 22 -Dietitian for nutritional consult and recommendation. Theragran M daily. -Continue ensure with meals Transaminitis -possibly drug induced -LFTs trending down -Patient asymptomatic, no complaints of nausea, vomiting or abdominal pain -US abdomen completed on 05/16 1. Limited examination due to bowel gas and body habitus. 2. No biliary ductal dilatation or cholelithiasis or findings suggesting cholecystitis. 3. Incompletely visualized liver. However, the visualized portions appear unremarkable by ultrasound. 4. Pancreas is not visualized. -Hepatitis panel negative. -No further workup needed. Recommend repeat LFTs in 1 month. BPH s/p TURP Possible bladder mass with abnormal cytology CT abd reveals masslike structure projecting into the posterior right side of the bladder. Differential diagnosis includes a true bladder tumor or prominent median lobe of the prostate gland. -PSA 1.86 ( does report patient has a history of TURP) -UA cytology with malignant cells present, favor low grade urothelial carcinoma. -Bladder US with massively enlarged prostate with protrusion into the bladder base. -Evaluated by Urology, appreciate recommendations. Cystoscopy possibly as outpatient, ? if this can be done while he is here. Hypertension, controlled -Previously on amlodipine 5 mg daily. BP stable, hold amlodipine for now, continue monitoring -12-lead EKG is negative -CXR PA/LAT no acute disease ? History of chronic pain -Looks like he was on Fentanyl patch before. -Tramadol PRN for pain. Atypical CP -Troponin negative, EKG left anterior fascicular block [place] of indeterminate age. -Denies any chest pain today. DVT prop Encourage ambulation. Tiki Jeffers May 24, 2017 16:39
[2017-05-24 17:41] VITALS: BP 103/58; PULSE 73; TEMP 98.3; O2SAT 97
[2017-05-24] MEDS: MIRTAZAPINE 15 MG TAB PO SCH (20:09)
[2017-05-25 05:30] VITALS: BP 125/63; PULSE 57; RESP 16; TEMP 97.4; O2SAT 98
[2017-05-25] MEDS: ARIPiprazole 15 MG TAB PO SCH (08:41)
[2017-05-25] MEDS: MULTIVITAMINS/MINERALS THERAPEUTIC TAB PO SCH (08:42)
[2017-05-25] MEDS: LIDOCAINE HCL 5% PATCH T-DERMAL SCH (11:19)
--- NOTE | 2017-05-25 12:37 | HHI.PR ---
Subjective Remarks Follow-up on patient with cachexia, hypertension, transaminitis. Patient seen and examined. Patient complaining of right-sided rib/flank pain that he describes as a dull ache that is worse with breathing and has been ongoing for the past several weeks. He denies any injury to the area. He denies any skin changes near the area. He denies any left-sided chest pain. Denies any fever or chills. He endorses associated shortness of breath which is worse with minimal exertion. He denies any nausea, vomiting or abdominal pain. He denies any hematuria or dysuria. Denies any diarrhea or constipation. Objective Vitals Vital Signs Date Time Temp Pulse Resp B/P (MAP) Pulse Ox O2 Delivery O2 Flow Rate FiO2 05/25/17 05:30 97.4 57 16 125/63 (83) 98 05/24/17 17:41 98.3 73 103/58 (73) 97 I/O 05/24/17 05/24/17 05/24/17 05/25/17 05/25/17 05/25/17 07:00 15:00 23:00 07:00 15:00 23:00 Intake Total 1080 ml 720 ml 480 ml Balance 1080 ml 720 ml 480 ml Intake Oral 1080 ml 720 ml 480 ml # Voids 2 5 1 Imaging Last Impressions Renal Ultrasound 05/19/17 0000 Signed Impressions: Service Date/Time: April 17:14 - CONCLUSION: Massively enlarged prostate. Bilateral nonobstructing renal stones. Casa Flores MD Liver Ultrasound 05/16/17 0000 Signed Impressions: Service Date/Time: Tuesday, May 16, 2017 13:29 - CONCLUSION: 1. Limited examination due to bowel gas and body habitus. 2. No biliary ductal dilatation or cholelithiasis or findings suggesting cholecystitis. 3. Incompletely visualized liver. However, the visualized portions appear unremarkable by ultrasound. 4. Pancreas is not visualized. Shay Rodriguez MD Abdomen/Pelvis CT 05/16/17 0000 Signed Impressions: Service Date/Time: Wednesday, May 17, 2017 00:00 - CONCLUSION: 1. Multiple bilateral small nonobstructing renal calculi. 2. Nonspecific, nonobstructed bowel gas pattern she represent a gastroenteritis and/or ileus. 3. Moderate enlargement of the prostate gland which is inhomogeneous. There is a masslike structure projecting into the posterior right side of the bladder. Differential diagnosis includes a true bladder tumor or prominent median lobe of the prostate gland. Kvng Morejon MD Chest X-Ray 05/11/17 0600 Signed Impressions: Service Date/Time: Thursday, May 11, 2017 12:51 - CONCLUSION: No acute disease. Vishal Cook MD FACR Objective Remarks GENERAL: This is a thin, frail, cachectic-appearing male patient, in no apparent distress. Lying in bed. Awake and alert. Appears comfortable. SKIN: Warm and dry. Multiple ecchymosis noted on both arms. HEENT: Atraumatic. Normocephalic. EOMI. Nose without bleeding. Airway patent. MMM. NECK: Trachea midline. CARDIOVASCULAR: Regular rate and rhythm without murmurs, gallops, or rubs. RESPIRATORY: Clear to auscultation. Breath sounds equal bilaterally. No wheezes , rales, or rhonchi. GASTROINTESTINAL: Abdomen soft, non-tender, nondistended. Bowel Sounds normoactive x4. MUSCULOSKELETAL: Extremities without clubbing, cyanosis, or edema. Tenderness to palpation elicited over the right rib cage/flank area. Skin over the area clear with no evidence of rash or lesion. Decreased range of motion bilateral shoulders. Well-healed surgical scar noted right shoulder. NEUROLOGICAL: Awake and alert. Moves all extremities spontaneously. No focal neurologic findings appreciated. Speech is clear. PSYCHIATRIC: Flat affect. Depressed mood. Inappropriate judgment and insight. Medications and IVs Current Medications Medications (Trade) Dose Ordered Sig/Bertin Route Start Time Stop Time Status Last Admin (Benadryl) 50 mg HS PRN PO 05/10/17 11:45 (Tylenol) 650 mg Q4H PRN PO 05/10/17 11:45 05/15/17 02:11 (Milk Of Magnesia Liq) 30 ml DAILY PRN PO 05/10/17 11:45 (Mag-Al Plus Susp Liq) 30 ml Q6H PRN PO 05/10/17 11:45 (Atarax) 50 mg Q6H PRN PO 05/10/17 11:45 (Ultram) 50 mg Q8H PRN PO 05/18/17 15:30 (Remeron) 30 mg HS PO 05/19/17 21:00 05/24/17 20:09 (Abilify) 15 mg DAILY PO 05/21/17 09:00 05/25/17 08:41 (Theragran M Tab) 1 tab DAILY PO 05/25/17 09:00 05/25/17 08:42 (Lidoderm 5% Patch.12 Hr) 1 patch DAILY T-DERMAL 05/25/17 11:00 05/25/17 11:19 Miscellaneous Information 1 BID T-DERMAL 05/25/17 21:00 A/P Problem List: (1) Major depressive disorder, recurrent, severe with psychotic features ICD Code: F33.3 - Major depressive disorder, recurrent, severe with psychotic symptoms Status: Chronic Assessment and Plan Patient is a 71-year-old male who came into the hospital transferred from [facility] for psychiatric management. Major Depression -Management per psychiatry -CT report reviewed no acute intracranial process Cachexia. ? secondary to major depression -eating well per RN -ate 100% of breakfast this morning. -Prealbumin level 22 -Dietitian for nutritional consult and recommendation. Theragran M daily. -Continue ensure Enlive with meals Transaminitis -possibly drug induced -LFTs trending down -Patient asymptomatic, no complaints of nausea, vomiting or abdominal pain -US abdomen completed on 05/16 1. Limited examination due to bowel gas and body habitus. 2. No biliary ductal dilatation or cholelithiasis or findings suggesting cholecystitis. 3. Incompletely visualized liver. However, the visualized portions appear unremarkable by ultrasound. 4. Pancreas is not visualized. -Hepatitis panel negative. -No further workup needed. Recommend repeat LFTs in 1 month. BPH s/p TURP Possible bladder mass with abnormal cytology CT abd reveals masslike structure projecting into the posterior right side of the bladder. Differential diagnosis includes a true bladder tumor or prominent median lobe of the prostate gland. -PSA 1.86 ( does report patient has a history of TURP) -UA cytology with malignant cells present, favor low grade urothelial carcinoma. -Bladder US with massively enlarged prostate with protrusion into the bladder base. -Evaluated by Urology, appreciate recommendations. Cystoscopy possibly as outpatient, ? if this can be done while he is here. Dr. Earl to discuss with Urology. Hypertension, controlled -Previously on amlodipine 5 mg daily. BP stable, hold amlodipine for now, continue monitoring. Right sided rib/flank pain with complaints of associated dyspnea -no history of injury -CXR PA/LAT 05/11/17 no acute disease -O2 sats 98% on room air -suspect musculoskeletal. Trial of Lidoderm patch. Limited ROM bilateral upper extremities Hx of shoulder sx 2016 -PT eval/tx ? History of chronic pain -Looks like he was on Fentanyl patch before. -Tramadol PRN for pain. Atypical CP -Troponin negative, EKG left anterior fascicular block [place] of indeterminate age. -Denies any chest pain today. DVT prop Encourage ambulation. Tiki Jeffers May 25, 2017 12:37
--- NOTE | 2017-05-25 12:52 | HHI.PYPN ---
Subjective Chief Complaint: severe depression, severe weight loss Remarks Patient seen in his room with nurse Nneka, chart review, patient discussed with nurse. Patient remains quite melancholic. There is a hopelessness and helplessness about him, though he is cooperative with his food eating his meals. He says "what's the use" will be meeting with patient's tomorrow to discuss sharing with him the findings of the wrist testing has been done and what fractionation ago. For now continue treatment Review of Systems Except as stated in HPI: all other systems reviewed are Neg Mental Status Examination Appearance: Disheveled Consciousness: Alert Orientation: Person, Place, Date/Time, Situation Motor Activity: Other (patient laying in bed unable to ascertain) Speech: Unremarkable Language: Adequate Fund of Knowledge: Adequate Attention and Concentration: Other (fair) Memory: Unremarkable Mood: Sad (depressed), Other (melancholic and anhedonic) Affect: Flat Thought Process & Associations: Intact Thought Content: Bizarre thinking Hallucination Type: Olfactory, Tactile Delusion Type: Paranoid Suicidal Ideation: Yes (to be shot with a gun) Suicidal Plan: No Suicidal Intention: No Homicidal Ideation: No Homicidal Plan: No Homicidal Intention: No Insight: Poor Judgment: Poor Results Vitals/IOs Vital Signs Date Time Temp Pulse Resp B/P (MAP) Pulse Ox O2 Delivery O2 Flow Rate FiO2 05/25/17 05:30 97.4 57 16 125/63 (83) 98 Intake and Output 05/25/17 05/25/17 05/26/17 08:00 16:00 00:00 Intake Total 240 ml 240 ml Balance 240 ml 240 ml Assessment & Plan Problem List: (1) Major depressive disorder, recurrent, severe with psychotic features ICD Codes: F33.3 - Major depressive disorder, recurrent, severe with psychotic symptoms Status: Chronic Assessment & Plan Estimated LOS: days patient remains depressed delusional, with very little hope. Justification for Cont. Inpt. At this time patient decompensated placed on lower level of care Discharge Planning Need to work with in urology to figure out further treatment Request HC Surrog/Guard Advoc?: Yes Casa Earl MD May 25, 2017 12:52
[2017-05-25 18:00] VITALS: BP 116/72; PULSE 70; RESP 18; TEMP 98.3; O2SAT 97
[2017-05-25] MEDS: REMOVE OLD PATCH T-DERMAL SCH (21:00)
[2017-05-25] MEDS: MIRTAZAPINE 15 MG TAB PO SCH (21:00)
[2017-05-26 05:46] VITALS: BP 115/67; PULSE 60; RESP 18; TEMP 97.5; O2SAT 100
[2017-05-26] MEDS: ARIPiprazole 15 MG TAB PO SCH (08:35)
[2017-05-26] MEDS: MULTIVITAMINS/MINERALS THERAPEUTIC TAB PO SCH (08:35)
[2017-05-26] MEDS: REMOVE OLD PATCH T-DERMAL SCH ×2 (08:39→21:00)
[2017-05-26] MEDS: LIDOCAINE HCL 5% PATCH T-DERMAL SCH (08:39)
--- NOTE | 2017-05-26 11:38 | EKG ---
Date Performed: 05/25/2017 Time Performed: 18:38:11 PTAGE: 71 years EKG: Sinus rhythm POSSIBLE RIGHT VENTRICULAR CONDUCTION DELAY LEFT ANTERIOR FASCICULAR BLOCK PROBABLE SEPTAL MYOCARDIA L INFARCTION , OF INDETERMINATE AGE ABNORMAL ECG Since the prior tracing, there has been no significa nt change PREVIOUS TRACING : 05/21/2017 16.34 DOCTOR: Liz William Interpretating Date/Time 05/26/2017 11:35:19
--- NOTE | 2017-05-26 13:13 | HHI.PYPN ---
Subjective Chief Complaint: severe depression, severe weight loss Remarks I spoke with patient's urologist yesterday late afternoon. We discussed further care related to patient's bladder tumor. Dr. warren was able to schedule patient for cystoscopy this afternoon at about 3 PM. I met with patient's nurse Kell and patient about 10:30 AM this morning. After discussion with the family patient agreed for the procedure. Thus patient will be administratively discharged from [facility]. Procedure then be readmitted to the psychiatric services Review of Systems Except as stated in HPI: all other systems reviewed are Neg Mental Status Examination Appearance: Disheveled Consciousness: Alert Orientation: Person, Place, Date/Time, Situation Motor Activity: Other (patient laying in bed unable to ascertain) Speech: Unremarkable Language: Adequate Fund of Knowledge: Adequate Attention and Concentration: Other (fair) Memory: Unremarkable Mood: Sad (depressed), Other (melancholic and anhedonic) Affect: Flat Thought Process & Associations: Intact Thought Content: Bizarre thinking Hallucination Type: Olfactory, Tactile Delusion Type: Paranoid Suicidal Ideation: Yes (to be shot with a gun) Suicidal Plan: No Suicidal Intention: No Homicidal Ideation: No Homicidal Plan: No Homicidal Intention: No Insight: Poor Judgment: Poor Results Vitals/IOs Vital Signs Date Time Temp Pulse Resp B/P (MAP) Pulse Ox O2 Delivery O2 Flow Rate FiO2 05/26/17 05:46 97.5 60 18 115/67 (83) 100 Intake and Output 05/26/17 05/26/17 05/27/17 08:00 16:00 00:00 Intake Total 0 ml Balance 0 ml Assessment & Plan Problem List: (1) Major depressive disorder, recurrent, severe with psychotic features ICD Codes: F33.3 - Major depressive disorder, recurrent, severe with psychotic symptoms Status: Chronic Assessment & Plan Estimated LOS: days patient to be discharged [facility] transferred directly to the surgical suite for cystoscopy by urology for treatment of his bladder tumor. If patient stable will return to [facility] either for East or 2500 Justification for Cont. Inpt. At this time patient would be Sitter placed in the lower level of care Discharge Planning See above Request HC Surrog/Guard Advoc?: Yes Casa Earl MD May 26, 2017 13:13
[2017-05-26] MEDS ORDERED: LORazepam 2 MG/ML VIAL IM STA (13:46)
--- NOTE | 2017-05-26 15:48 | HHI.PR ---
Subjective Remarks Follow-up on patient with cachexia, hypertension, transaminitis. Patient seen and examined. I set the bedside. Patient scheduled for cystoscopy to be done later today. Patient continues to have complaints of pain over the right rib/ flank area. Reports first lidocaine patch gave him some relief but is no longer working. He denies any new medical complaints. States he had an imaging study done at [facility] several years ago that showed an area of previous injury over the location where he now hurts. Objective Vitals Vital Signs Date Time Temp Pulse Resp B/P (MAP) Pulse Ox O2 Delivery O2 Flow Rate FiO2 05/26/17 05:46 97.5 60 18 115/67 (83) 100 05/25/17 18:00 98.3 70 18 116/72 (87) 97 I/O 05/25/17 05/25/17 05/25/17 05/26/17 05/26/17 05/26/17 07:00 15:00 23:00 07:00 15:00 23:00 Intake Total 960 ml 840 ml 0 ml Balance 960 ml 840 ml 0 ml Intake Oral 960 ml 840 ml 0 ml # Voids 4 2 2 Imaging Last Impressions Renal Ultrasound 05/19/17 0000 Signed Impressions: Service Date/Time: April 17:14 - CONCLUSION: Massively enlarged prostate. Bilateral nonobstructing renal stones. Casa Flores MD Liver Ultrasound 05/16/17 0000 Signed Impressions: Service Date/Time: Tuesday, May 16, 2017 13:29 - CONCLUSION: 1. Limited examination due to bowel gas and body habitus. 2. No biliary ductal dilatation or cholelithiasis or findings suggesting cholecystitis. 3. Incompletely visualized liver. However, the visualized portions appear unremarkable by ultrasound. 4. Pancreas is not visualized. Shay Rodriguez MD Abdomen/Pelvis CT 05/16/17 0000 Signed Impressions: Service Date/Time: Wednesday, May 17, 2017 00:00 - CONCLUSION: 1. Multiple bilateral small nonobstructing renal calculi. 2. Nonspecific, nonobstructed bowel gas pattern she represent a gastroenteritis and/or ileus. 3. Moderate enlargement of the prostate gland which is inhomogeneous. There is a masslike structure projecting into the posterior right side of the bladder. Differential diagnosis includes a true bladder tumor or prominent median lobe of the prostate gland. Kvng Morejon MD Chest X-Ray 05/11/17 0600 Signed Impressions: Service Date/Time: Thursday, May 11, 2017 12:51 - CONCLUSION: No acute disease. Vishal Cook MD FACR Objective Remarks GENERAL: This is a thin, frail, cachectic-appearing male patient, in no apparent distress. Lying in bed. Awake and alert. Appears comfortable. at the bedside. SKIN: Warm and dry. Multiple ecchymosis noted on both arms. HEENT: Atraumatic. Normocephalic. EOMI. Nose without bleeding. Airway patent. MMM. NECK: Trachea midline. CARDIOVASCULAR: Regular rate and rhythm without murmurs, gallops, or rubs. RESPIRATORY: Clear to auscultation. Breath sounds equal bilaterally. No wheezes , rales, or rhonchi. GASTROINTESTINAL: Abdomen soft, non-tender, nondistended. Bowel Sounds normoactive x4. MUSCULOSKELETAL: Extremities without clubbing, cyanosis, or edema. Tenderness to palpation elicited over the right rib cage/flank area. Skin over the area clear with no evidence of rash or lesion. Decreased range of motion bilateral shoulders. Well-healed surgical scar noted right shoulder. NEUROLOGICAL: Awake and alert. Moves all extremities spontaneously. No focal neurologic findings appreciated. Speech is clear. PSYCHIATRIC: Flat affect. Depressed mood. Inappropriate judgment and insight. A/P Problem List: (1) Major depressive disorder, recurrent, severe with psychotic features ICD Code: F33.3 - Major depressive disorder, recurrent, severe with psychotic symptoms Status: Chronic Assessment and Plan Patient is a 71-year-old male who came into the hospital transferred from [facility] for psychiatric management. Major Depression -Management per psychiatry -CT report reviewed no acute intracranial process Cachexia. ? secondary to major depression -eating well per RN -ate 100% of breakfast this morning. -Prealbumin level -Dietitian for nutritional consult and recommendation. Theragran M daily. -Continue ensure Enlive with meals Transaminitis -possibly drug induced -LFTs trending down -Patient asymptomatic, no complaints of nausea, vomiting or abdominal pain -US abdomen completed on 05/16 1. Limited examination due to bowel gas and body habitus. 2. No biliary ductal dilatation or cholelithiasis or findings suggesting cholecystitis. 3. Incompletely visualized liver. However, the visualized portions appear unremarkable by ultrasound. 4. Pancreas is not visualized. -Hepatitis panel negative. -No further workup needed. Recommend repeat LFTs in 1 month. BPH s/p TURP Possible bladder mass with abnormal cytology CT abd reveals masslike structure projecting into the posterior right side of the bladder. Differential diagnosis includes a true bladder tumor or prominent median lobe of the prostate gland. -PSA 1.86 ( does report patient has a history of TURP) -UA cytology with malignant cells present, favor low grade urothelial carcinoma. -Bladder US with massively enlarged prostate with protrusion into the bladder base. -Evaluated by Urology, appreciate recommendations. Cystoscopy planned for later today. Hypertension, controlled -Previously on amlodipine 5 mg daily. BP stable, hold amlodipine for now, continue monitoring. Right sided rib/flank pain with complaints of associated dyspnea -no history of injury per patient report but states he had previous imaging done at [place] which showed an area of likely previous fracture. -CXR PA/LAT 05/11/17 no acute disease -O2 sats 98% on room air -suspect musculoskeletal. Possible neuroma. Minimal improvement with Lidoderm patch. Limited ROM bilateral upper extremities Hx of shoulder sx 2016 -Evaluated by PT, no needs but will contact OT to incorporate right upper extremity exercises and ADL training. History of chronic pain -Looks like he was on Fentanyl patch before. -Tramadol PRN for pain. Atypical CP -Troponin negative, EKG left anterior fascicular block MO of indeterminate age. -Denies any chest pain today. DVT prop Encourage ambulation. Tiki Jeffers May 26, 2017 15:48
[2017-05-26] MEDS ORDERED: NALOXONE HCL 0.4 MG/ML AMP IV ONE (20:29)
[2017-05-26] MEDS: MIRTAZAPINE 15 MG TAB PO SCH (21:00)
[2017-05-26 22:00] VITALS: BP 96/62; PULSE 67; RESP 16; TEMP 97.2; O2SAT 97
[2017-05-27 06:00] VITALS: BP 113/71; PULSE 78; RESP 17; TEMP 97.7; O2SAT 99
[2017-05-27] MEDS ORDERED: NON-FORMULARY DRUG (Fentanyl Patch 72 HR 1 PATCH) T-DERMAL SCH (09:00)
[2017-05-27] MEDS ORDERED: MELOXICAM 15 MG TAB PO SCH (09:00)
[2017-05-27] MEDS: LIDOCAINE HCL 5% PATCH T-DERMAL SCH (09:00)
[2017-05-27] MEDS: MULTIVITAMINS/MINERALS THERAPEUTIC TAB PO SCH (09:00)
[2017-05-27] MEDS: REMOVE OLD PATCH T-DERMAL SCH ×2 (09:00→21:00)
--- NOTE | 2017-05-27 09:20 | HHI.PYPN ---
Subjective Chief Complaint: severe depression, severe weight loss Remarks Patient seen in his room on 4 E. with nurse Atiya, chart review, patient discussed with nurse. Patient tolerated upper procedure well. The awaiting word from the urologist. Patient laying in his bed he is alert though with an angry look on his face. Patient did track me with his eyes though he refused to answer my questions I explained the basics of the surgery. Explained the also has a Hernandez catheter. He showed no response. This time we will continue treatment will continue with all the consultations and orders vigilant in existence prior to his operative procedure. We will need to meet with 5 first part of next week to consider further treatment of his severe melancholic depression Review of Systems Except as stated in HPI: all other systems reviewed are Neg Mental Status Examination Appearance: Appropriate Consciousness: Alert Orientation: Person, Place, Date/Time, Situation Motor Activity: Other (patient laying in bed unable to ascertain) Speech: Unremarkable (at this time patient selectively mute) Language: Adequate (at this time patient selectively mute) Fund of Knowledge: Adequate Attention and Concentration: Other (fair) Memory: Unremarkable Mood: Sad (depressed, melancholic, anhedonic), Other (melancholic and anhedonic ) Affect: Other (marked decrease range and intensity) Thought Process & Associations: Intact, Linear Thought Content: Bizarre thinking Hallucination Type: Olfactory, Tactile Delusion Type: Paranoid Suicidal Ideation: Yes (to be shot with a gun) Suicidal Plan: No Suicidal Intention: No Homicidal Ideation: No Homicidal Plan: No Homicidal Intention: No Insight: Poor Judgment: Poor Results Labs Test 05/26/17 18:35 Vitals/IOs Vital Signs Date Time Temp Pulse Resp B/P (MAP) Pulse Ox O2 Delivery O2 Flow Rate FiO2 05/27/17 06:00 97.7 78 17 113/71 (85) 99 Intake and Output 05/27/17 05/27/17 05/28/17 08:00 16:00 00:00 Intake Total 0 ml Output Total 550 ml Balance -550 ml Assessment & Plan Problem List: (1) Major depressive disorder, recurrent, severe with psychotic features ICD Codes: F33.3 - Major depressive disorder, recurrent, severe with psychotic symptoms Status: Chronic Assessment & Plan Estimated LOS: days patient continues significantly depressed melancholic and anhedonic, no also somewhat angry with us. It appears though his recovering from the surgical procedure without difficulty. He still passes Hernandez catheter in place. Beginning next week related talk to his and himself about the possibility of ECT Justification for Cont. Inpt. At this time patient decompensated placed in a lower level of care Discharge Planning This needs to be determined with the input from patient and patient's Request HC Surrog/Guard Advoc?: Yes Casa Earl MD May 27, 2017 09:20
[2017-05-27] MEDS: ARIPiprazole 15 MG TAB PO SCH (10:49)
[2017-05-27] MEDS ORDERED: amLODIPine BESYLATE 5 MG TAB PO SCH (12:30)
--- NOTE | 2017-05-27 14:01 | HHI.PR ---
Subjective Remarks Follow-up on patient with cachexia, hypertension, transaminitis, severe depression. Patient seen and examined. Patient underwent cystoscopy yesterday and feels that he is weaker today as a result. He is asking for us to let him . He states that he "feels filled up on the inside" but cannot elaborate on details. States he feels like he is floating on a river alone too weak to reach the shore. Reports his right-sided rib pain is no better or no worse. He reports some hematuria today following the cystoscopy. Eating well. Objective Vitals Vital Signs Date Time Temp Pulse Resp B/P (MAP) Pulse Ox O2 Delivery O2 Flow Rate FiO2 05/27/17 06:00 97.7 78 17 113/71 (85) 99 05/26/17 22:00 97.2 67 16 96/62 (73) 97 I/O 05/26/17 05/26/17 05/26/17 05/27/17 05/27/17 05/27/17 07:00 15:00 23:00 07:00 15:00 23:00 Intake Total 0 ml 0 ml 0 ml 480 ml Output Total 550 ml Balance 0 ml 0 ml -550 ml 480 ml Intake Oral 0 ml 0 ml 0 ml 480 ml Output Urine Total 550 ml # Voids 2 0 Imaging Last Impressions Renal Ultrasound 05/19/17 0000 Signed Impressions: Service Date/Time: April 17:14 - CONCLUSION: Massively enlarged prostate. Bilateral nonobstructing renal stones. Casa Flores MD Liver Ultrasound 05/16/17 0000 Signed Impressions: Service Date/Time: Tuesday, May 16, 2017 13:29 - CONCLUSION: 1. Limited examination due to bowel gas and body habitus. 2. No biliary ductal dilatation or cholelithiasis or findings suggesting cholecystitis. 3. Incompletely visualized liver. However, the visualized portions appear unremarkable by ultrasound. 4. Pancreas is not visualized. Shay Rodriguez MD Abdomen/Pelvis CT 05/16/17 0000 Signed Impressions: Service Date/Time: Wednesday, May 17, 2017 00:00 - CONCLUSION: 1. Multiple bilateral small nonobstructing renal calculi. 2. Nonspecific, nonobstructed bowel gas pattern she represent a gastroenteritis and/or ileus. 3. Moderate enlargement of the prostate gland which is inhomogeneous. There is a masslike structure projecting into the posterior right side of the bladder. Differential diagnosis includes a true bladder tumor or prominent median lobe of the prostate gland. Kvng Morejon MD Chest X-Ray 05/11/17 0600 Signed Impressions: Service Date/Time: Thursday, May 11, 2017 12:51 - CONCLUSION: No acute disease. Vishal Cook MD FACR Objective Remarks GENERAL: This is a thin, frail, cachectic-appearing male patient, in no apparent distress. Lying in bed. Awake and alert. Appears comfortable. SKIN: Warm and dry. Multiple ecchymosis noted on both arms. HEENT: Atraumatic. Normocephalic. EOMI. Nose without bleeding. Airway patent. MMM. NECK: Trachea midline. CARDIOVASCULAR: Regular rate and rhythm without murmurs, gallops, or rubs. RESPIRATORY: Clear to auscultation. Breath sounds equal bilaterally. No wheezes , rales, or rhonchi. GASTROINTESTINAL: Abdomen soft, non-tender, nondistended. Bowel Sounds normoactive x4. MUSCULOSKELETAL: Extremities without clubbing, cyanosis, or edema. Tenderness to palpation elicited over the right rib cage/flank area. Skin over the area clear with no evidence of rash or lesion. Decreased range of motion bilateral shoulders. Well-healed surgical scar noted right shoulder. NEUROLOGICAL: Awake and alert. Moves all extremities spontaneously. No focal neurologic findings appreciated. Speech is clear. PSYCHIATRIC: Flat affect. Depressed mood. Inappropriate judgment and insight. Medications and IVs Current Medications Medications (Trade) Dose Ordered Sig/Bertin Route Start Time Stop Time Status Last Admin (Benadryl) 50 mg HS PRN PO 05/10/17 11:45 (Tylenol) 650 mg Q4H PRN PO 05/10/17 11:45 05/15/17 02:11 (Milk Of Magnesia Liq) 30 ml DAILY PRN PO 05/10/17 11:45 (Mag-Al Plus Susp Liq) 30 ml Q6H PRN PO 05/10/17 11:45 (Atarax) 50 mg Q6H PRN PO 05/10/17 11:45 05/26/17 09:00 (Ultram) 50 mg Q8H PRN PO 05/18/17 15:30 (Remeron) 30 mg HS PO 05/19/17 21:00 05/25/17 21:00 (Abilify) 15 mg DAILY PO 05/21/17 09:00 05/27/17 10:49 (Theragran M Tab) 1 tab DAILY PO 05/25/17 09:00 05/26/17 08:35 (Lidoderm 5% Patch.12 Hr) 1 patch DAILY T-DERMAL 05/25/17 11:00 05/26/17 08:39 Miscellaneous Information 1 BID T-DERMAL 05/25/17 21:00 05/26/17 21:00 (Norvasc) 5 mg DAILY PO 05/27/17 12:30 (Wellbutrin) 75 mg BID@0800,1600 PO 05/27/17 16:00 (CeleBREX) 200 mg BID PO 05/27/17 21:00 (Mobic) 15 mg DAILY PO 05/27/17 09:00 UNV (Remeron) 15 mg HS PO 05/27/17 21:00 Non-Formulary Medication 1 patch Q72H T-DERMAL 05/27/17 09:00 UNV (SEROquel) 75 mg BID PO 05/27/17 21:00 (Desyrel) 100 mg HS PO 05/27/17 21:00 A/P Problem List: (1) Major depressive disorder, recurrent, severe with psychotic features ICD Code: F33.3 - Major depressive disorder, recurrent, severe with psychotic symptoms Status: Chronic Assessment and Plan Patient is a 71-year-old male who came into the hospital transferred from [facility] for psychiatric management. Major Depression -Management per psychiatry -CT report reviewed no acute intracranial process Cachexia. ? secondary to major depression -eating well -Prealbumin level 22 -Dietitian for nutritional consult and recommendation. Theragran M daily. -Continue ensure Enlive with meals Transaminitis -possibly drug induced -LFTs trending down -Patient asymptomatic, no complaints of nausea, vomiting or abdominal pain -US abdomen completed on 05/16 1. Limited examination due to bowel gas and body habitus. 2. No biliary ductal dilatation or cholelithiasis or findings suggesting cholecystitis. 3. Incompletely visualized liver. However, the visualized portions appear unremarkable by ultrasound. 4. Pancreas is not visualized. -Hepatitis panel negative. -No further workup needed. Recommend repeat LFTs in 1 month. BPH s/p TURP Possible bladder mass with abnormal cytology CT abd reveals masslike structure projecting into the posterior right side of the bladder. Differential diagnosis includes a true bladder tumor or prominent median lobe of the prostate gland. -PSA 1.86 ( does report patient has a history of TURP) -UA cytology with malignant cells present, favor low grade urothelial carcinoma. -Bladder US with massively enlarged prostate with protrusion into the bladder base. -Evaluated by Urology, appreciate recommendations. Status post cystoscopy with intraoperative findings of no evidence of any bladder tumors, stones or diverticula, right lateral lobe adenoma that was protruding into the prosthetic urethra and slightly into the bladder, which is likely what was seen on ultrasound, papillary-like tissue at the verumontanum, which was concerning for a possible papillary tumor. Also noted to have a 5-7 mm nodule on prostate exam and patient will need a prostate biopsy as an outpatient. Hypertension, now hypotensive -Previously on amlodipine 5 mg daily. BP stable, hold amlodipine for now, continue monitoring. Right sided rib/flank pain with complaints of associated dyspnea -no history of injury per patient report but states he had previous imaging done at [facility] which showed an area of likely previous fracture. -CXR PA/LAT 05/11/17 no acute disease -O2 sats 98% on room air -suspect musculoskeletal. Possible neuroma. Minimal improvement with Lidoderm patch. Limited ROM bilateral upper extremities Hx of shoulder sx 2016 -Evaluated by PT, no needs but will contact OT to incorporate right upper extremity exercises and ADL training. History of chronic pain -Looks like he was on Fentanyl patch before. -Tramadol PRN for pain. Atypical CP -Troponin negative, EKG left anterior fascicular block IA of indeterminate age. DVT prop Encourage ambulation. Tiki Jeffers May 27, 2017 14:01
--- NOTE | 2017-05-27 15:20 | HHI.PR ---
Subjective Patient symptoms today 71y.o M with abnormal cytology, s/p Cystoscopy and biopsy of the suspicious lesion at prostatic urethra. Also found to have av abnormal JEVON ( nodule) PSA is normal 1.86. He had no issues overnight, no f/c/n/v, no pain, just mild hematuria and dysuria post procedure, reassured it will improve with time. Pathology is pending/ No difficulties voiding c/o Objective Vital Signs Vital Signs Date Time Temp Pulse Resp B/P (MAP) Pulse Ox O2 Delivery O2 Flow Rate FiO2 05/27/17 06:00 97.7 78 17 113/71 (85) 99 05/26/17 22:00 97.2 67 16 96/62 (73) 97 Intake & Output 05/27/17 05/27/17 07:00 19:00 Intake Total 0 ml 480 ml Output Total 550 ml Balance -550 ml 480 ml Intake Oral 0 ml 480 ml Output Urine Total 550 ml # Voids 0 Medications and IVs Current Medications Medications (Trade) Dose Ordered Sig/Bertin Route Start Time Stop Time Status Last Admin (Benadryl) 50 mg HS PRN PO 05/10/17 11:45 (Tylenol) 650 mg Q4H PRN PO 05/10/17 11:45 05/15/17 02:11 (Milk Of Magnesia Liq) 30 ml DAILY PRN PO 05/10/17 11:45 (Mag-Al Plus Susp Liq) 30 ml Q6H PRN PO 05/10/17 11:45 (Atarax) 50 mg Q6H PRN PO 05/10/17 11:45 05/26/17 09:00 (Ultram) 50 mg Q8H PRN PO 05/18/17 15:30 (Remeron) 30 mg HS PO 05/19/17 21:00 05/25/17 21:00 (Abilify) 15 mg DAILY PO 05/21/17 09:00 05/27/17 10:49 (Theragran M Tab) 1 tab DAILY PO 05/25/17 09:00 05/26/17 08:35 (Lidoderm 5% Patch.12 Hr) 1 patch DAILY T-DERMAL 05/25/17 11:00 05/26/17 08:39 Miscellaneous Information 1 BID T-DERMAL 05/25/17 21:00 05/26/17 21:00 (Norvasc) 5 mg DAILY PO 05/27/17 12:30 Future Hold (Wellbutrin) 75 mg BID@0800,1600 PO 05/27/17 16:00 (CeleBREX) 200 mg BID PO 05/27/17 21:00 (Mobic) 15 mg DAILY PO 05/27/17 09:00 UNV (Remeron) 15 mg HS PO 05/27/17 21:00 Non-Formulary Medication 1 patch Q72H T-DERMAL 05/27/17 09:00 UNV (SEROquel) 75 mg BID PO 05/27/17 21:00 (Desyrel) 100 mg HS PO 05/27/17 21:00 Assessment and Plan Assessment and Plan 71 yo male h/o BPH s/p TURP with possible bladder mass, abnormal cytology. And abnormal JEVON He is s/p cysto/urethral bx yesterday, path is pending -Continue management as per primary team -Recommended to drink more fluids to improve dysuria and hematuria post procedure - Further recommendations after pathology is reviewed. he will also need to address abnormal JEVON as an outpt. Edmund Larry May 27, 2017 15:20
[2017-05-27] MEDS: buPROPion HCL 75 MG TAB PO SCH (18:07)
[2017-05-27 18:11] VITALS: BP 117/67; PULSE 78; RESP 16; TEMP 98; O2SAT 100
[2017-05-27] MEDS ORDERED: MIRTAZAPINE 15 MG TAB PO SCH (21:00)
[2017-05-27] MEDS: traZODone HCL 100 MG TAB PO SCH (21:00)
[2017-05-27] MEDS: MIRTAZAPINE 15 MG TAB PO SCH (21:00)
[2017-05-27] MEDS: CELECOXIB 200 MG CAP PO SCH (21:00)
[2017-05-27] MEDS ORDERED: QUEtiapine FUMARATE 25 MG TAB PO SCH (21:00)
[2017-05-28 05:58] VITALS: BP 116/59; PULSE 72; RESP 18; TEMP 97.6; O2SAT 97
[2017-05-28] MEDS: LIDOCAINE HCL 5% PATCH T-DERMAL SCH (09:00)
[2017-05-28] MEDS: REMOVE OLD PATCH T-DERMAL SCH ×2 (09:00→21:00)
[2017-05-28] MEDS: ARIPiprazole 15 MG TAB PO SCH (09:37)
[2017-05-28] MEDS: MULTIVITAMINS/MINERALS THERAPEUTIC TAB PO SCH (09:37)
[2017-05-28] MEDS: CELECOXIB 200 MG CAP PO SCH ×2 (09:37→21:00)
[2017-05-28] MEDS: buPROPion HCL 75 MG TAB PO SCH ×2 (09:37→15:14)
--- NOTE | 2017-05-28 12:21 | HHI.PR ---
Subjective Remarks Follow-up on patient with cachexia, hypertension, transaminitis, severe depression. Patient seen and examined. Denies any new changes overnight. He is voiding without any difficulties. Reports a good appetite. This was confirmed with nursing staff. Objective Vitals Vital Signs Date Time Temp Pulse Resp B/P (MAP) Pulse Ox O2 Delivery O2 Flow Rate FiO2 05/28/17 05:58 97.6 72 18 116/59 (78) 97 05/27/17 18:11 98.0 78 16 117/67 (84) 100 I/O 05/27/17 05/27/17 05/27/17 05/28/17 05/28/17 05/28/17 07:00 15:00 23:00 07:00 15:00 23:00 Intake Total 0 ml 480 ml 1920 ml 0 ml 240 ml Output Total 550 ml Balance -550 ml 480 ml 1920 ml 0 ml 240 ml Intake Oral 0 ml 480 ml 1920 ml 0 ml 240 ml Output Urine Total 550 ml # Voids 0 1 Imaging Last Impressions Renal Ultrasound 05/19/17 0000 Signed Impressions: Service Date/Time: April 17:14 - CONCLUSION: Massively enlarged prostate. Bilateral nonobstructing renal stones. Casa Flores MD Liver Ultrasound 05/16/17 0000 Signed Impressions: Service Date/Time: Tuesday, May 16, 2017 13:29 - CONCLUSION: 1. Limited examination due to bowel gas and body habitus. 2. No biliary ductal dilatation or cholelithiasis or findings suggesting cholecystitis. 3. Incompletely visualized liver. However, the visualized portions appear unremarkable by ultrasound. 4. Pancreas is not visualized. Shay Rodriguez MD Abdomen/Pelvis CT 05/16/17 0000 Signed Impressions: Service Date/Time: Wednesday, May 17, 2017 00:00 - CONCLUSION: 1. Multiple bilateral small nonobstructing renal calculi. 2. Nonspecific, nonobstructed bowel gas pattern she represent a gastroenteritis and/or ileus. 3. Moderate enlargement of the prostate gland which is inhomogeneous. There is a masslike structure projecting into the posterior right side of the bladder. Differential diagnosis includes a true bladder tumor or prominent median lobe of the prostate gland. Kvng Morejon MD Chest X-Ray 05/11/17 0600 Signed Impressions: Service Date/Time: Thursday, May 11, 2017 12:51 - CONCLUSION: No acute disease. Vishal Cook MD FACR Objective Remarks GENERAL: This is a thin, frail, cachectic-appearing male patient, in no apparent distress. Lying in bed. Awake and alert. Appears comfortable. SKIN: Warm and dry. Multiple ecchymosis noted on both arms. HEENT: Atraumatic. Normocephalic. EOMI. Nose without bleeding. Airway patent. MMM. NECK: Trachea midline. CARDIOVASCULAR: Regular rate and rhythm without murmurs, gallops, or rubs. RESPIRATORY: Clear to auscultation. Breath sounds equal bilaterally. No wheezes , rales, or rhonchi. GASTROINTESTINAL: Abdomen soft, non-tender, nondistended. Bowel Sounds normoactive x4. MUSCULOSKELETAL: Extremities without clubbing, cyanosis, or edema. Tenderness to palpation elicited over the right rib cage/flank area. Skin over the area clear with no evidence of rash or lesion. Decreased range of motion bilateral shoulders. Well-healed surgical scar noted right shoulder. NEUROLOGICAL: Awake and alert. Moves all extremities spontaneously. No focal neurologic findings appreciated. Speech is clear. PSYCHIATRIC: Flat affect. Depressed mood. Inappropriate judgment and insight. Medications and IVs Current Medications Medications (Trade) Dose Ordered Sig/Bertin Route Start Time Stop Time Status Last Admin (Benadryl) 50 mg HS PRN PO 05/10/17 11:45 (Tylenol) 650 mg Q4H PRN PO 05/10/17 11:45 05/15/17 02:11 (Milk Of Magnesia Liq) 30 ml DAILY PRN PO 05/10/17 11:45 (Mag-Al Plus Susp Liq) 30 ml Q6H PRN PO 05/10/17 11:45 (Atarax) 50 mg Q6H PRN PO 05/10/17 11:45 05/26/17 09:00 (Ultram) 50 mg Q8H PRN PO 05/18/17 15:30 (Remeron) 30 mg HS PO 05/19/17 21:00 05/25/17 21:00 (Abilify) 15 mg DAILY PO 05/21/17 09:00 05/28/17 09:37 (Theragran M Tab) 1 tab DAILY PO 05/25/17 09:00 05/28/17 09:37 (Lidoderm 5% Patch.12 Hr) 1 patch DAILY T-DERMAL 05/25/17 11:00 05/26/17 08:39 Miscellaneous Information 1 BID T-DERMAL 05/25/17 21:00 05/26/17 21:00 (Norvasc) 5 mg DAILY PO 05/27/17 12:30 Future Hold (Wellbutrin) 75 mg BID@0800,1600 PO 05/27/17 16:00 05/28/17 09:37 (CeleBREX) 200 mg BID PO 05/27/17 21:00 05/28/17 09:37 (Mobic) 15 mg DAILY PO 05/27/17 09:00 UNV Non-Formulary Medication 1 patch Q72H T-DERMAL 05/27/17 09:00 UNV (Desyrel) 100 mg HS PO 05/27/17 21:00 05/27/17 21:00 A/P Problem List: (1) Major depressive disorder, recurrent, severe with psychotic features ICD Code: F33.3 - Major depressive disorder, recurrent, severe with psychotic symptoms Status: Chronic Assessment and Plan Patient is a 71-year-old male who came into the hospital transferred from [facility] for psychiatric management. Major Depression -Management per psychiatry -CT report reviewed no acute intracranial process Cachexia. ? secondary to major depression -eating well -Prealbumin level 22 -Dietitian for nutritional consult and recommendation. Theragran M daily. -Continue ensure Enlive with meals Transaminitis -possibly drug induced -LFTs trending down -Patient asymptomatic, no complaints of nausea, vomiting or abdominal pain -US abdomen completed on 05/16 1. Limited examination due to bowel gas and body habitus. 2. No biliary ductal dilatation or cholelithiasis or findings suggesting cholecystitis. 3. Incompletely visualized liver. However, the visualized portions appear unremarkable by ultrasound. 4. Pancreas is not visualized. -CT abd/pelvis - homogeneous density without lesion in the liver, pancreas within normal limits, kidneys normal in size and shape with multiple small nonobstructing renal calculi, nonspecific bowel gas pattern, moderate enlargement of the prostate gland and masslike structure projecting in the posterior right total bladder. -Hepatitis panel negative. -No further workup needed. Recommend repeat LFTs in 1 month. BPH s/p TURP Possible bladder mass with abnormal cytology CT abd reveals masslike structure projecting into the posterior right side of the bladder. Differential diagnosis includes a true bladder tumor or prominent median lobe of the prostate gland. -PSA 1.86 ( does report patient has a history of TURP) -UA cytology with malignant cells present, favor low grade urothelial carcinoma. -Bladder US with massively enlarged prostate with protrusion into the bladder base. -Evaluated by Urology, appreciate recommendations. Status post cystoscopy with intraoperative findings of no evidence of any bladder tumors, stones or diverticula, right lateral lobe adenoma that was protruding into the prosthetic urethra and slightly into the bladder, which is likely what was seen on ultrasound, papillary-like tissue at the verumontanum, which was concerning for a possible papillary tumor. Also noted to have a 5-7 mm nodule on prostate exam and patient will need a prostate biopsy as an outpatient. -Mild hematuria post bx. Encourage fluid intake. Monitor. -Follow up on pathology results Hypertension, now hypotensive -Previously on amlodipine 5 mg daily. BP stable, hold amlodipine for now, continue monitoring. Right sided rib/flank pain with complaints of associated dyspnea -no history of injury per patient report but states he had previous imaging done at [place] which showed an area of likely previous fracture. -CXR PA/LAT 05/11/17 no acute disease -O2 sats 98% on room air -suspect musculoskeletal. Possible neuroma. Minimal improvement with Lidoderm patch. Limited ROM bilateral upper extremities Hx of shoulder sx 2016 -Evaluated by PT, no needs but will contact OT to incorporate right upper extremity exercises and ADL training. History of chronic pain -Looks like he was on Fentanyl patch before. -Tramadol PRN for pain. DVT prop Encourage ambulation. Bilateral SCDs/hold off on chemoprophylaxis for now status post bladder biopsy procedure and postoperative hematuria Patient may be transferred to regular psychiatric unit from hospitalist standpoint. Tiki Jeffers May 28, 2017 12:21
[2017-05-28] MEDS: DOCUSATE SODIUM 50 MG/SENNA 8.6 MG TAB PO SCH ×2 (15:14→21:00)
--- NOTE | 2017-05-28 15:23 | HHI.PYPN ---
Subjective Chief Complaint: severe depression, severe weight loss Remarks Patient was seen today for psychiatric reevaluation, patient remains objectively depressed, melancholic, with very pessimistic point abuse. He reports that he remains very depressed, 1/10, with poor response to the medications. The patient has ambivalent suicidal ideation, but denies intentions, contracted for safety in the unit. He reports okay sleep, poor level of energy and appetite. Compliant with his medications, no cynical side effects reported Mental Status Examination Appearance: Appropriate Consciousness: Alert Orientation: Person, Place, Date/Time, Situation Motor Activity: Other (patient laying in bed unable to ascertain) Speech: Unremarkable (at this time patient selectively mute) Language: Adequate (at this time patient selectively mute) Fund of Knowledge: Adequate Attention and Concentration: Other (fair) Memory: Unremarkable Mood: Sad (depressed, melancholic, anhedonic), Other (melancholic and anhedonic ) Affect: Other (marked decrease range and intensity) Thought Process & Associations: Intact, Linear Thought Content: Bizarre thinking Hallucination Type: Olfactory, Tactile Delusion Type: Paranoid Suicidal Ideation: Yes (to be shot with a gun) Suicidal Plan: No Suicidal Intention: No Homicidal Ideation: No Homicidal Plan: No Homicidal Intention: No Insight: Poor Judgment: Poor Results Vitals/IOs Vital Signs Date Time Temp Pulse Resp B/P (MAP) Pulse Ox O2 Delivery O2 Flow Rate FiO2 05/28/17 05:58 97.6 72 18 116/59 (78) 97 Intake and Output 05/28/17 05/28/17 05/29/17 08:00 16:00 00:00 Intake Total 240 ml 600 ml Balance 240 ml 600 ml Assessment & Plan Problem List: (1) Major depressive disorder, recurrent, severe with psychotic features ICD Codes: F33.3 - Major depressive disorder, recurrent, severe with psychotic symptoms Status: Chronic Assessment & Plan: Patient continues to be very depressed, will increase Wellbutrin to 100 mg twice a day for depression. Brief supportive psychotherapy provided. Assessment & Plan Estimated LOS: days Justification for Cont. Inpt. Patient is very depressed, she had an elevated risk of danger to self. Request HC Surrog/Guard Advoc?: Yes Eduardo Dos Santos MD May 28, 2017 15:23
[2017-05-28] MEDS: buPROPion HCL 100 MG TAB PO SCH (16:00)
[2017-05-28] MEDS: ACETAMINOPHEN 325 MG TAB PO PRN (16:00)
[2017-05-28 18:00] VITALS: BP 106/61; PULSE 73; RESP 18; TEMP 97.4; O2SAT 97
[2017-05-28] MEDS: MIRTAZAPINE 15 MG TAB PO SCH (21:00)
[2017-05-28] MEDS: traZODone HCL 100 MG TAB PO SCH (21:00)
[2017-05-29 06:12] VITALS: BP 109/66; PULSE 85; RESP 19; TEMP 97.7; O2SAT 97
[2017-05-29] MEDS: buPROPion HCL 100 MG TAB PO SCH ×2 (08:00→16:00)
[2017-05-29] MEDS: DOCUSATE SODIUM 50 MG/SENNA 8.6 MG TAB PO SCH ×2 (09:00→20:17)
[2017-05-29] MEDS: CELECOXIB 200 MG CAP PO SCH ×2 (09:00→20:17)
[2017-05-29] MEDS: REMOVE OLD PATCH T-DERMAL SCH ×2 (09:00→20:18)
[2017-05-29] MEDS: MULTIVITAMINS/MINERALS THERAPEUTIC TAB PO SCH (09:00)
[2017-05-29] MEDS: ARIPiprazole 15 MG TAB PO SCH (09:00)
[2017-05-29] MEDS: LIDOCAINE HCL 5% PATCH T-DERMAL SCH (09:00)
--- NOTE | 2017-05-29 09:49 | HHI.PYPN ---
Subjective Chief Complaint: severe depression, severe weight loss Remarks On psychiatric evaluation today the patient is found sleeping, he is very oppositional, refusing to open his eyes, he doesn't answer any of my questions. As per nurses, the patient has been refusing his medications. I spoke with him yesterday I noted that the patient is very depressed, melancholic, with a pronounced catastrophic thinking. Mental Status Examination Appearance: Appropriate Consciousness: Alert Orientation: Person, Place, Date/Time, Situation Motor Activity: Other (patient laying in bed unable to ascertain) Speech: Unremarkable (at this time patient selectively mute) Language: Adequate (at this time patient selectively mute) Fund of Knowledge: Adequate Attention and Concentration: Other (fair) Memory: Unremarkable Mood: Sad (depressed, melancholic, anhedonic), Other (melancholic and anhedonic ) Affect: Other (marked decrease range and intensity) Thought Process & Associations: Intact, Linear Thought Content: Bizarre thinking Hallucination Type: Olfactory, Tactile Delusion Type: Paranoid Suicidal Ideation: Yes (to be shot with a gun) Suicidal Plan: No Suicidal Intention: No Homicidal Ideation: No Homicidal Plan: No Homicidal Intention: No Insight: Poor Judgment: Poor Results Vitals/IOs Vital Signs Date Time Temp Pulse Resp B/P (MAP) Pulse Ox O2 Delivery O2 Flow Rate FiO2 05/29/17 06:12 97.7 85 19 109/66 (80) 97 Intake and Output 05/29/17 05/29/17 05/30/17 08:00 16:00 00:00 Intake Total 220 ml Balance 220 ml Assessment & Plan Problem List: (1) Major depressive disorder, recurrent, severe with psychotic features ICD Codes: F33.3 - Major depressive disorder, recurrent, severe with psychotic symptoms Status: Chronic Assessment & Plan: Patient seems to be very depressed, very catastrophic, his oppositional, refusing to talk today. He has been refusing his medications. This patient might benefit greatly of ECT Assessment & Plan Estimated LOS: days Justification for Cont. Inpt. Patient has an elevated risk of danger to self out of a structured environment. Request HC Surrog/Guard Advoc?: Yes Eduardo Dos Santos MD May 29, 2017 09:49
--- NOTE | 2017-05-29 14:41 | HHI.PR ---
Subjective Remarks Follow-up on patient with cachexia, hypertension, transaminitis, severe depression. Patient seen and examined. Patient will not communicate with me today. Will not open his eyes. He has been refusing all of his medications today and has not eaten breakfast or lunch. Discussed with GINNY Bolden who states he has been ambulating some in the unit and urinating without any difficulty. Objective Vitals Vital Signs Date Time Temp Pulse Resp B/P (MAP) Pulse Ox O2 Delivery O2 Flow Rate FiO2 05/29/17 06:12 97.7 85 19 109/66 (80) 97 05/28/17 18:00 97.4 73 18 106/61 (76) 97 I/O 05/28/17 05/28/17 05/28/17 05/29/17 05/29/17 05/29/17 07:00 15:00 23:00 07:00 15:00 23:00 Intake Total 0 ml 840 ml 1680 ml 220 ml Balance 0 ml 840 ml 1680 ml 220 ml Intake Oral 0 ml 840 ml 1680 ml 220 ml # Voids 1 2 3 # Bowel Movements 0 1 Imaging Last Impressions Renal Ultrasound 05/19/17 0000 Signed Impressions: Service Date/Time: April 17:14 - CONCLUSION: Massively enlarged prostate. Bilateral nonobstructing renal stones. Casa Flores MD Liver Ultrasound 05/16/17 0000 Signed Impressions: Service Date/Time: Tuesday, May 16, 2017 13:29 - CONCLUSION: 1. Limited examination due to bowel gas and body habitus. 2. No biliary ductal dilatation or cholelithiasis or findings suggesting cholecystitis. 3. Incompletely visualized liver. However, the visualized portions appear unremarkable by ultrasound. 4. Pancreas is not visualized. Shay Rodriguez MD Abdomen/Pelvis CT 05/16/17 0000 Signed Impressions: Service Date/Time: Wednesday, May 17, 2017 00:00 - CONCLUSION: 1. Multiple bilateral small nonobstructing renal calculi. 2. Nonspecific, nonobstructed bowel gas pattern she represent a gastroenteritis and/or ileus. 3. Moderate enlargement of the prostate gland which is inhomogeneous. There is a masslike structure projecting into the posterior right side of the bladder. Differential diagnosis includes a true bladder tumor or prominent median lobe of the prostate gland. Kvng Morejon MD Chest X-Ray 05/11/17 0600 Signed Impressions: Service Date/Time: Thursday, May 11, 2017 12:51 - CONCLUSION: No acute disease. Vishal Cook MD FACR Objective Remarks GENERAL: This is a thin, frail, cachectic-appearing male patient, in no apparent distress. Lying in bed. Will not open his eyes. SKIN: Warm and dry. Multiple ecchymosis noted on both arms. HEENT: Atraumatic. Normocephalic. Nose without bleeding. Airway patent. NECK: Trachea midline. CARDIOVASCULAR: Regular rate and rhythm without murmurs, gallops, or rubs. RESPIRATORY: Clear to auscultation. Breath sounds equal bilaterally. No wheezes , rales, or rhonchi. GASTROINTESTINAL: Abdomen soft, non-tender, nondistended. Bowel Sounds normoactive x4. MUSCULOSKELETAL: Extremities without clubbing, cyanosis, or edema. Medications and IVs Current Medications Medications (Trade) Dose Ordered Sig/Bertin Route Start Time Stop Time Status Last Admin (Benadryl) 50 mg HS PRN PO 05/10/17 11:45 (Tylenol) 650 mg Q4H PRN PO 05/10/17 11:45 05/28/17 16:00 (Milk Of Magnesia Liq) 30 ml DAILY PRN PO 05/10/17 11:45 (Mag-Al Plus Susp Liq) 30 ml Q6H PRN PO 05/10/17 11:45 (Atarax) 50 mg Q6H PRN PO 05/10/17 11:45 05/26/17 09:00 (Ultram) 50 mg Q8H PRN PO 05/18/17 15:30 (Remeron) 30 mg HS PO 05/19/17 21:00 05/25/17 21:00 (Abilify) 15 mg DAILY PO 05/21/17 09:00 05/28/17 09:37 (Theragran M Tab) 1 tab DAILY PO 05/25/17 09:00 05/28/17 09:37 (Lidoderm 5% Patch.12 Hr) 1 patch DAILY T-DERMAL 05/25/17 11:00 05/26/17 08:39 Miscellaneous Information 1 BID T-DERMAL 05/25/17 21:00 3/1/18 21:00 (Norvasc) 5 mg DAILY PO 05/27/17 12:30 Future Hold (CeleBREX) 200 mg BID PO 05/27/17 21:00 05/28/17 09:37 (Desyrel) 100 mg HS PO 05/27/17 21:00 05/27/17 21:00 (Comfort-Colace) 1 tab BID PO 05/28/17 14:00 05/28/17 21:00 (Wellbutrin) 100 mg BID@0800,1600 PO 05/28/17 16:00 A/P Problem List: (1) Major depressive disorder, recurrent, severe with psychotic features ICD Code: F33.3 - Major depressive disorder, recurrent, severe with psychotic symptoms Status: Chronic Assessment and Plan Patient is a 71-year-old male who came into the hospital transferred from [facility] for psychiatric management. Major Depression -Management per psychiatry -CT report reviewed no acute intracranial process Cachexia. ? secondary to major depression -Patient had been eating well up until today. He has refused breakfast and lunch today. Refusing all his medications. -Prealbumin level 22 -Dietitian for nutritional consult and recommendation. Theragran M daily. Patient has had a 7lb wt gain this admission. -Continue ensure Enlive with meals Transaminitis -possibly drug induced -LFTs trending down -Patient asymptomatic, no complaints of nausea, vomiting or abdominal pain -US abdomen completed on 05/16 1. Limited examination due to bowel gas and body habitus. 2. No biliary ductal dilatation or cholelithiasis or findings suggesting cholecystitis. 3. Incompletely visualized liver. However, the visualized portions appear unremarkable by ultrasound. 4. Pancreas is not visualized. -CT abd/pelvis - homogeneous density without lesion in the liver, pancreas within normal limits, kidneys normal in size and shape with multiple small nonobstructing renal calculi, nonspecific bowel gas pattern, moderate enlargement of the prostate gland and masslike structure projecting in the posterior right total bladder. -Hepatitis panel negative. -No further workup needed. Recommend repeat LFTs in 1 month. BPH s/p TURP Possible bladder mass with abnormal cytology CT abd reveals masslike structure projecting into the posterior right side of the bladder. Differential diagnosis includes a true bladder tumor or prominent median lobe of the prostate gland. -PSA 1.86 ( does report patient has a history of TURP) -UA cytology with malignant cells present, favor low grade urothelial carcinoma. -Bladder US with massively enlarged prostate with protrusion into the bladder base. -Evaluated by Urology, appreciate recommendations. Status post cystoscopy with intraoperative findings of no evidence of any bladder tumors, stones or diverticula, right lateral lobe adenoma that was protruding into the prosthetic urethra and slightly into the bladder, which is likely what was seen on ultrasound, papillary-like tissue at the verumontanum, which was concerning for a possible papillary tumor. Also noted to have a 5-7 mm nodule on prostate exam and patient will need a prostate biopsy as an outpatient. -Mild hematuria post bx. Encourage fluid intake. Monitor. Resolved. -Follow up on pathology results - pending Hypertension, now hypotensive -Previously on amlodipine 5 mg daily. BP stable, hold amlodipine for now, continue monitoring. Right sided rib/flank pain with complaints of associated dyspnea -no history of injury per patient report but states he had previous imaging done at [place] which showed an area of likely previous fracture. -CXR PA/LAT 05/11/17 no acute disease -O2 sats 98% on room air -suspect musculoskeletal. Possible neuroma. Minimal improvement with Lidoderm patch. Limited ROM bilateral upper extremities Hx of shoulder sx 2015 -Evaluated by PT, no needs but will contact OT to incorporate right upper extremity exercises and ADL training. History of chronic pain -Looks like he was on Fentanyl patch before. -Tramadol PRN for pain. DVT prop Encourage ambulation. Bilateral SCDs. Heparin sq. Tiki Jeffers May 29, 2017 14:41
[2017-05-29] MEDS: HEPARIN SODIUM - SQ 10,000 UNITS/ML VIAL SQ SCH (15:00)
[2017-05-29 18:13] VITALS: BP 132/84; PULSE 92; RESP 16; TEMP 98; O2SAT 100
[2017-05-29] MEDS: traZODone HCL 100 MG TAB PO SCH (20:17)
[2017-05-29] MEDS: MIRTAZAPINE 15 MG TAB PO SCH (20:18)
[2017-05-30] MEDS: HEPARIN SODIUM - SQ 10,000 UNITS/ML VIAL SQ SCH (03:00)
[2017-05-30 05:09] VITALS: BP 101/55; PULSE 71; RESP 16; TEMP 98.3; O2SAT 97
[2017-05-30] MEDS: buPROPion HCL 100 MG TAB PO SCH ×2 (08:00→08:45)
[2017-05-30] MEDS: MULTIVITAMINS/MINERALS THERAPEUTIC TAB PO SCH ×2 (08:45→08:50)
[2017-05-30] MEDS: ARIPiprazole 15 MG TAB PO SCH ×2 (08:46→08:49)
[2017-05-30] MEDS: DOCUSATE SODIUM 50 MG/SENNA 8.6 MG TAB PO SCH ×2 (08:46→08:49)
[2017-05-30] MEDS: CELECOXIB 200 MG CAP PO SCH (08:49)
[2017-05-30] MEDS: REMOVE OLD PATCH T-DERMAL SCH (08:50)
[2017-05-30] MEDS: LIDOCAINE HCL 5% PATCH T-DERMAL SCH (08:50)
[2017-05-30] MEDS ORDERED: CELE200C PO (10:50)
[2017-05-30] MEDS ORDERED: REME30TA PO (10:50)
[2017-05-30] MEDS ORDERED: TRAZ100T10 PO (10:50)
[2017-05-30] MEDS ORDERED: Heparin Inj SQ (10:50)
[2017-05-30] MEDS ORDERED: ARIP1TAB13 PO (10:50)
[2017-05-30] MEDS ORDERED: BUPR100T4 PO (10:50)
[2017-05-30] MEDS ORDERED: AMLO5TAB2 PO (10:50)
--- NOTE | 2017-05-30 11:00 | HHI.DS ---
Psychiatry Discharge Summary Inpatient Psychiatric care?: Yes Advance Directive: No Reason Not Provided: Due to Patient Condition Mental Health AdvanceDirective: Yes Health Care Proxy: Yes Admission Admission Date May 09, 2017 at 19:18 Admission Diagnosis: (1) Major depressive disorder, recurrent, severe with psychotic features ICD Code: F33.3 - Major depressive disorder, recurrent, severe with psychotic symptoms Brief History Patient is a 71-year-old white male comes here under a Ren act signed by Dr. Sacha Mtz dated 05/09/17 at 1205 that document reviewed stating depression suicidal ideations states patient asked her to buy a gun so he could shoot himself. Patient initially seen with the Ren act at [facility] once medically cleared transferred to this facility for further care and attention under the Ren act. Patient seen in his room on unit 2500 with nurse Cecilia and medical student Samir. Patient laying quietly in bed flat on his back very still with fair eye contact. His responses are slow brief and quiet there is delay in his responses. Patient is alert, he is oriented to place time and situation. He states that he thinks he is . That he has sludge in his veins. That his teeth are rotten. That he cannot swallow. That he has a whole in his cheek. He does state also that he had surgery on his right shoulder about 2-3 years ago with poor healing with the depression starting after that. He has had marked weight loss marked anhedonia and melancholy a. He acknowledges hospitalization 2 about a year ago reviewed and prescribed various medications none of which he appears to have been compliant with. He lives with his of 41 years. He states he would absolutely take the suicide pill if offered to him. Patient denies any prior psychiatric contact hospitalization his psychotropic medications. Denies any alcohol or drug use related to this. Denies any physical or sexual abuse. Though the may be some mental health history with the paternal side of his family. He states he has one adopted adult son and they have no contact with. I also talked to the patient's whose name is Tammi at [phone] who verifies the above statements. She also has added that after the shoulder surgery he had episodes with severe chronic pain have been on various opiates. Though he did not mention that to us at all. also states he had been tried on Wellbutrin, Remeron, Cymbalta, and Seroquel. He also been on lisinopril and hydrocodone with Tylenol. At this time patient does meet criteria for acute inpatient involuntary psychiatric hospitalization under the Ren act. I will do first opinion and request second opinion. I feel he does not have capacity thus I'll ask for healthcare surrogate and guardian advocate. I states she would be willing to be health care surrogate, she states that his prior 2 hospitalizations a year ago for Ren acts also. She also states that they do have advanced directives the house and wishes to be DO NOT RESUSCITATE. We'll have the hospitalist consult will us. We will have PT and OT consult will us. We will have a swallow study done. For now I will refrain from any psychotropics and 3 given some further information. On first assessment appears as patient might be a candidate for ECT will discuss that with his and the patient with her the next few days The patient is a 71 years old man, brought to the hospital under Ren act due to symptoms of depression and suicidal ideation. Patient was consulted to me for second opinion. On psychiatric evaluation today patient is non-cooperative, very oppositional and selectively mute. In spite of persistent redirection, the patient remains silent and don't answer any of my questions. Tobacco Use In Past 30 Days: Refused To Answer Alcohol Use: Never Hospital Course Patient's hospital course showed a consistency with his severe depression, melancholy, anhedonia, with severe psychomotor retardation, marked thought blocking. He appeared to be so significantly depressed that he was not even able to consider suicide. However he was also psychotic. He did complain of delusions related to his blood being full of sludge, his teeth rotting in his mouth, and is having a perforation of his left cheek. There is some irritability with this behaviors overall cooperative with the medication. During his stay a urinalysis picked up malignant cells in his urine. Urology has been consulted they did a cystoscopy and biopsy. The biopsy is still pending. Patient is having no urinary tract problems at the present time. However patient is showing no significant response to oral medication for his severe melancholic depression. We have discussed alternative treatments with him and his . They're both in agreement that ECT would be the best option at this time. There is been discussion and exploration of facilities. Patient has been accepted and [facility] for the ECT program. Patient is willing to do that. I have lift the Ren act allow them to sign voluntary. Thus patient will be discharged today to that facility for assessment and potential treatment of his significant depression with ECT with Rx 1 month Results Blood Pressure 101 / 55 Vital Signs Date Time Temp Pulse Resp B/P (MAP) Pulse Ox O2 Delivery O2 Flow Rate FiO2 05/30/17 05:09 98.3 71 16 101/55 (70) 97 Laboratory Results Test 05/13/17 09:32 Cholesterol Level 161 MG/DL (120-200) HDL Cholesterol 59.1 MG/DL (40.0-60.0) Hemoglobin A1c 4.8 % (4.3-6.0) LDL Cholesterol 75 MG/DL (0-99) Triglycerides Level 134 MG/DL (42-150) Summary of Procedures Cystoscopy with biopsy Imaging Last Impressions Renal Ultrasound 05/19/17 0000 Signed Impressions: Service Date/Time: April 17:14 - CONCLUSION: Massively enlarged prostate. Bilateral nonobstructing renal stones. Casa Flores MD Liver Ultrasound 05/16/17 0000 Signed Impressions: Service Date/Time: Tuesday, May 16, 2017 13:29 - CONCLUSION: 1. Limited examination due to bowel gas and body habitus. 2. No biliary ductal dilatation or cholelithiasis or findings suggesting cholecystitis. 3. Incompletely visualized liver. However, the visualized portions appear unremarkable by ultrasound. 4. Pancreas is not visualized. Shay Rodriguez MD Abdomen/Pelvis CT 05/16/17 0000 Signed Impressions: Service Date/Time: Wednesday, May 17, 2017 00:00 - CONCLUSION: 1. Multiple bilateral small nonobstructing renal calculi. 2. Nonspecific, nonobstructed bowel gas pattern she represent a gastroenteritis and/or ileus. 3. Moderate enlargement of the prostate gland which is inhomogeneous. There is a masslike structure projecting into the posterior right side of the bladder. Differential diagnosis includes a true bladder tumor or prominent median lobe of the prostate gland. Kvng Morejon MD Chest X-Ray 05/11/17 0600 Signed Impressions: Service Date/Time: Thursday, May 11, 2017 12:51 - CONCLUSION: No acute disease. Vishal Cook MD FACR Pending results at discharge: Yes (cytology) Medications # of Antipsychotic meds at D/C: 1 Approp Antipsych med options 1 - Minimum of three failed multiple trials of monotherapy. 2 - Documented plan to taper to monotherapy due to previous use of multiple meds OR cross-taper in progress at D/C. 3 - Documentation of augmentation of Clozapine. 4 - Justification other than those listed in allowable values 1-3, document here : Discharge Discharge Date: May 30, 2017 Discharge Diagnosis: (1) Major depressive disorder, recurrent, severe with psychotic features Diagnosis: Principal ICD Code: F33.3 - Major depressive disorder, recurrent, severe with psychotic symptoms Status: Chronic Pt Condition on Discharge: Guarded Discharge Disposition: Disch to Another Hospital Discharge Instructions Diet Instructions: As Tolerated, No Restrictions Activities you can perform: Regular-No Restrictions Scheduled Appointment: [facility] [place] Appointment Date: May 30, 2017 Appointment Time: 05:00pm Discharge Time > 30 minutes Mental Status Examination Appearance: Appropriate Consciousness: Alert Orientation: Person, Place, Date/Time, Situation Motor Activity: Other (patient laying in bed unable to ascertain) Speech: Unremarkable (at this time patient selectively mute) Language: Adequate (at this time patient selectively mute) Fund of Knowledge: Adequate Attention and Concentration: Other (fair) Memory: Unremarkable Mood: Sad (depressed, melancholic, anhedonic), Other (melancholic and anhedonic ) Affect: Other (marked decrease range and intensity) Thought Process & Associations: Intact, Linear Thought Content: Bizarre thinking Hallucination Type: Olfactory, Tactile Delusion Type: Paranoid Suicidal Ideation: Yes (to be shot with a gun) Suicidal Plan: No Suicidal Intention: No Homicidal Ideation: No Homicidal Plan: No Homicidal Intention: No Insight: Poor Judgment: Poor Discharge/Advance Care Plan Health Problems: (1) Major depressive disorder, recurrent, severe with psychotic features Goals to promote your health * To prevent worsening of your condition and complications * To maintain your health at the optimal level Directions to meet your goals Take your medications as prescribed Follow your dietary instruction Follow activity as directed Keep your appointments as scheduled Take your immunizations and boosters as scheduled If your symptoms worsen call your PCP, if no PCP go to Urgent Care Center or Emergency Room For 18/10 questions related to your inpatient stay or results of tests pending at discharge, please contact Dr. Casa Earl at Smoking is Dangerous to Your Health. Avoid second hand smoking Casa Earl MD May 30, 2017 11:00
--- NOTE | 2017-05-30 14:25 | HHI.PR ---
Subjective Remarks Follow-up on patient with cachexia, hypertension, transaminitis, severe depression. Patient seen and examined. Patient denies any new complaints today. States he is not having a good day. He denies any changes. Discussed with nursing staff, ate 25% of his breakfast. Objective Vitals Vital Signs Date Time Temp Pulse Resp B/P (MAP) Pulse Ox O2 Delivery O2 Flow Rate FiO2 05/30/17 05:09 98.3 71 16 101/55 (70) 97 05/29/17 18:13 98.0 92 16 132/84 (100) 100 I/O 05/29/17 05/29/17 05/29/17 05/30/17 05/30/17 05/30/17 07:00 15:00 23:00 07:00 15:00 23:00 Intake Total 220 ml 0 ml 120 ml Balance 220 ml 0 ml 120 ml Intake Oral 220 ml 0 ml 120 ml # Voids 3 3 1 # Bowel Movements 1 Objective Remarks GENERAL: Thin, cachectic, chronically ill appearing male patient in NAD. Awake and alert. Depressed. SKIN: Warm and dry. No rash. HEAD: Normocephalic. Atraumatic. EYES: EOMI. No scleral icterus. No injection or drainage. ENT: No nasal bleeding or discharge. Mucous membranes pink and moist. NECK: Trachea midline. CARDIOVASCULAR: Regular rate and rhythm. S1, S2 noted. No murmur appreciated. RESPIRATORY: Nonlabored. Clear to auscultation. Breath sounds equal bilaterally. GASTROINTESTINAL: Abdomen soft, non-tender, nondistended. Normoactive bowel sounds x4. MUSCULOSKELETAL: No obvious deformities. Extremities without clubbing, cyanosis , or edema. NEUROLOGICAL: Awake and alert. No obvious cranial nerve deficits. Able to move all extremities spontaneously. Nonfocal. Normal but minimal speech. PSYCHIATRIC: Inppropriate mood and affect; insight and judgment abnormal. Flat affect. Severely depressed mood. A/P Problem List: (1) Major depressive disorder, recurrent, severe with psychotic features ICD Code: F33.3 - Major depressive disorder, recurrent, severe with psychotic symptoms Status: Chronic Assessment and Plan Patient is a 71-year-old male who came into the hospital transferred from [facility] for psychiatric management. Major Depression -Management per psychiatry -CT report reviewed no acute intracranial process Cachexia. ? secondary to major depression -Patient had been eating well up until today. He has refused breakfast and lunch today. Refusing all his medications. -Prealbumin level 22 -Dietitian for nutritional consult and recommendation. Theragran M daily. Patient has had a 7lb wt gain this admission. -Continue ensure Enlive with meals Transaminitis -possibly drug induced -LFTs trending down -Patient asymptomatic, no complaints of nausea, vomiting or abdominal pain -US abdomen completed on 05/16 1. Limited examination due to bowel gas and body habitus. 2. No biliary ductal dilatation or cholelithiasis or findings suggesting cholecystitis. 3. Incompletely visualized liver. However, the visualized portions appear unremarkable by ultrasound. 4. Pancreas is not visualized. -CT abd/pelvis - homogeneous density without lesion in the liver, pancreas within normal limits, kidneys normal in size and shape with multiple small nonobstructing renal calculi, nonspecific bowel gas pattern, moderate enlargement of the prostate gland and masslike structure projecting in the posterior right total bladder. -Hepatitis panel negative. -No further workup needed. Recommend repeat LFTs in 1 month. BPH s/p TURP Possible bladder mass with abnormal cytology CT abd reveals masslike structure projecting into the posterior right side of the bladder. Differential diagnosis includes a true bladder tumor or prominent median lobe of the prostate gland. -PSA 1.86 ( does report patient has a history of TURP) -UA cytology with malignant cells present, favor low grade urothelial carcinoma. -Bladder US with massively enlarged prostate with protrusion into the bladder base. -Evaluated by Urology, appreciate recommendations. Status post cystoscopy with intraoperative findings of no evidence of any bladder tumors, stones or diverticula, right lateral lobe adenoma that was protruding into the prosthetic urethra and slightly into the bladder, which is likely what was seen on ultrasound, papillary-like tissue at the verumontanum, which was concerning for a possible papillary tumor. Also noted to have a 5-7 mm nodule on prostate exam and patient will need a prostate biopsy as an outpatient. -Mild hematuria post bx. Encourage fluid intake. Monitor. Resolved. -Follow up on pathology results - pending Hypertension, now hypotensive -Previously on amlodipine 5 mg daily. BP stable, hold amlodipine for now, continue monitoring. Right sided rib/flank pain with complaints of associated dyspnea -no history of injury per patient report but states he had previous imaging done at [place] which showed an area of likely previous fracture. -CXR PA/LAT 05/11/17 no acute disease -O2 sats 98% on room air -suspect musculoskeletal. Possible neuroma. Minimal improvement with Lidoderm patch. Limited ROM bilateral upper extremities Hx of shoulder sx 2015 -Evaluated by PT, no needs but will contact OT to incorporate right upper extremity exercises and ADL training. History of chronic pain -Looks like he was on Fentanyl patch before. -Tramadol PRN for pain. DVT prop Encourage ambulation. Bilateral SCDs. Heparin sq. Tiki Jeffers May 30, 2017 14:25
== END 2017-05-30 12:15 | DRG 885 ==
LOC: H250 19:18 → UNDODISIN 05-26 14:20 → H4EA 05-26 21:05
PROVIDERS: ADMIT Psychiatry & Neurology Psychiatry; ATTEND Psychiatry & Neurology Psychiatry
DX: F33.3 Major depressive disorder, recurrent, severe with psychotic symptoms (principal); I95.9 Hypotension, unspecified; Z68.1 Body mass index [BMI] 19.9 or less, adult; Z91.14 Patient's other noncompliance with medication regimen; I10 Essential (primary) hypertension; R63.4 Abnormal weight loss; Z66 Do not resuscitate; R74.0 Nonspecific elevation of levels of transaminase and lactic acid dehydrogenase [LDH]; N40.0 Benign prostatic hyperplasia without lower urinary tract symptoms; G89.29 Other chronic pain
CPT/HCPCS: 71046; 74177; 76705; 76775; 80053; 80061; 80074; 80076; 80307; 81001; 83036; 84134; 84153; 84439; 84443; 84484; 85025; 88112; 88305; 93005; J2060; Q9963; Q9967

== ENCOUNTER 2017-05-26 15:05 | Day surgery (SDC) | payer MEDICARE ==
[~2017-05-26 15:05] MED LIST: AMLO5TAB2 PO; BUPR150XL PO; CELE200C PO; DEXAMETHASONE SOD PHOS 4 MG/ML VIAL IV ONE; FENT12DI T-DERMAL; GLYCOPYRROLATE 1 MG/5 ML SYRINGE IV PUSH ONE; LIDOCAINE HCL 1% PF 5 ML SYRINGE OTHER ONE; MELO15TA20 PO; ONDANSETRON HCL 4 MG/2 ML VIAL IV ONE; PROPOFOL 200 MG/20 ML AMP IV ONE; QUET150XR PO; REME15TA PO; SODIUM CHLORIDE 0.9% 20 ML VIAL IV ONE; TRAZ100T10 PO; ceFAZolin INJ 1,000 MG VIAL IV ONE; ePHEDrine/NS 25 MG/5 ML SYRINGE IV ONE
[2017-05-26] MEDS ORDERED: SODIUM CHLORID 0.9% 500 ML IV PRN (17:15)
[2017-05-26] MEDS ORDERED: POVIDONE IODINE 5% (ANTISEPSIS KIT) 4 APPLICATIONS EACH NARE PRN (17:15)
[2017-05-26] MEDS ORDERED: LACTATED RINGER'S 1000 ML IV PRN (17:15)
[2017-05-26] MEDS ORDERED: CHLORHEXIDINE GLUCONATE 2 % 1 PACK (2 CLOTHS) TOPICAL PRN (17:15)
[2017-05-26] MEDS ORDERED: ceFAZolin INJ 1,000 MG VIAL IV ONE (18:35)
--- NOTE | 2017-05-26 18:51 | HHI.PR ---
Immediate Post Op Note Procedure Date: May 26, 2017 Pre Op Diagnosis: Bladder mass, abnormal cytology Post Op Diagnosis: Urethral papillary tumor Surgeon: Loyd Brand [employer] Duct Worker Supervisor(s): N/A Procedure: cystoscopy, urethral biopsy Findings: 1. Urethral papillary tumor within Prostate 2. Prostate nodule at apex found on JEVON Specimen(s) removed: urethral biopsy x 3 Anesthesia: General Drains: Other (brooks) Patient to: PACU Patient Condition: Good Loyd Brand MD May 26, 2017 18:51
[2017-05-26] MEDS ORDERED: DO NOT ADM ANY ANTICOAGULANT DRUGS PRN (19:45)
--- NOTE | 2017-05-26 20:08 | MP ---
cc: Loyd Brand MD DATE OF OPERATION: 05/26/2017 PREOPERATIVE DIAGNOSES: 1. Bladder mass. 2. Abnormal cytology. 3. History of benign prostatic hyperplasia status post transurethral resection of the prostate. 4. Depression. POSTOPERATIVE DIAGNOSES: 1. Bladder mass. 2. Abnormal cytology. 3. History of benign prostatic hyperplasia status post transurethral resection of the prostate. 4. Depression. 5. Urethral papillary tumor. PROCEDURES PERFORMED: 1. Cystourethroscopy. 2. Urethral biopsy x 3. SURGEON: Loyd Brand MD ANESTHESIA: General. COMPLICATIONS: None. PREOPERATIVE ANTIBIOTICS: Ancef 1 g IV. DRAINS: A 16-Namibian Hernandez catheter to gravity drainage. SPECIMEN: Urethral biopsy x 3. ESTIMATED BLOOD LOSS: 5 mL. DISPOSITION: Stable to recovery. INDICATIONS: The patient is a 71-year-old male who was admitted via the [facility] due to suicidal ideation. During his admission, his liver enzymes started to rise and he complained of some abdominal pain. Patient underwent a liver ultrasound, which was inconclusive. Follow up CT of abdomen and pelvis with IV contrast only was performed, which showed a large mass in his bladder. He was also noted to have microscopic hematuria. Urine cytology was sent by the psych team, which came back suspicious for cancer cells. Urology was consulted. After a discussion with the patient and the psychiatry team, it was elected to perform the surgery while he was in-house. After risks, benefits and alternatives were explained, patient wished to proceed and informed consent was obtained. PROCEDURE IN DETAIL: The patient was properly identified, brought back to the cystoscopy suite and was laid supine on the cystoscopy table. Proper timeout was performed. Under the direction of anesthesiology, the patient was intubated and induced under general anesthetic. Preoperative antibiotics in the form of Ancef 1 gram IV was given 1 hour prior to the start of the procedure. The patient was then placed in the dorsolithotomy position, prepped and draped in normal surgical fashion. A rigid cystoscope was carefully passed into the patient's bladder per urethra without any difficulty. At this time, the bladder was then drained. FISH and cytology were sent from the bladder washings. At this time, the bladder was carefully examined. There was no evidence of any bladder tumors, stones or diverticula. The bladder was mildly trabeculated. Both ureteral orifices were identified and appeared in normal anatomic location. The cystoscope was carefully retracted back into the prostatic fossa. The bladder neck was wide open, but he had significant right lateral lobe adenoma that was protruding into the prosthetic urethra and slightly into the bladder, which is likely what was seen on ultrasound. As I slowly retracted the scope further back toward the verumontanum, I came by this papillary-like tissue at the verumontanum, which was concerning for a possible papillary tumor. Several biopsies were then taken with the flexible biopsy forceps. These will be sent off to the pathologist for permanent analysis. A Bovie electrode was then used to cauterize these areas. At this time, the scope was then fully removed. A 16-Namibian catheter was then placed, pink-red urine returned. A bimanual examination was done at the end of the case. His abdomen appeared to be soft, however, on his prostate examination, there appeared to be a nodule at his apex, approximately 5-7 mm in size. Of note, his PSA was 1.86. This concluded the procedure. The patient was extubated and sent to recovery in stable condition. He will be transferred back to the psych floor per PACU protocol. Will discontinue the Hernandez in the morning and await pathology results. He likely will need a prostate biopsy in the future, which will be done on an outpatient basis. MD NENITA De Jesus/BEKAH , 06:56 PM , 08:07 PM
[2017-05-26] MEDS ORDERED: NALOXONE HCL 0.4 MG/ML AMP ONE (20:29)
[2017-05-26] MEDS ORDERED: SODIUM CHLORIDE 0.9% INJ 10 ML ONE (20:30)
[2017-05-26 20:45] VITALS: BP 120/62; PULSE 65; RESP 16; TEMP 97.3; O2SAT 96
== END 2017-05-26 20:50 | disposition still patient (30) ==
LOC: HSDC 15:05
PROVIDERS: ATTEND Urology
DX: D30.4 Benign neoplasm of urethra (principal); N40.2 Nodular prostate without lower urinary tract symptoms; F33.3 Major depressive disorder, recurrent, severe with psychotic symptoms
CPT/HCPCS: 00910; 36415; 52204; J0690; J1100; J2310; J2405; J7120